=== PATIENT | female | born 1965 | race Caucasian/White ===

== ENCOUNTER → 2017-01-18 | Outpatient (CLI) | payer OTHER ==
[~2017-01-18] MED LIST: /CLON1TA PO; /ESOM40CA; /ESOM40CA OR; /ESOM40CA PO; /LOR25TA PO; BENA25TA4 PO; CARD120T3; CARD120T6; CARD120T6 OR; CRAN500C5 PO; DEXILANT OR; EMBEDA; ESTR1TAB PO; ESTR625TA; KADIAN; KADIAN OR; KADIAN PO; LASI40TA; LASI40TA OR; LISI20TA5; LYRI150C OR; LYRI200C; LYRI300C; LYRI300C OR; MULTIVIT; MULTIVIT PO; MULTTAB4 PO; NUCY100T11 PO; OPAN10TA17 OR; OPAN10TA17 PO; OPAN5TAB PO; OPANA IR OR; OPANA IR PO; PENN1.5S2 TOP; PREG25CA; SELE200C4 PO; SELE50TA; SKEL800T5 OR; THERGRAN; TRAM50TA2 OR; VICO5TAB; VICO5TAB PO; VIT D; VIT D 2000 PO; VIT E; VITA400C; VITA400C OR; VITA400C2 PO; VITAMIN D50000 UNT; VOLT1GEL2 TD; XANA0.5T; XANA0.5T OR; ZANT150T OR; [UNRECOGNIZED DRUG - CODE] PO; [UNRECOGNIZED DRUG - CODE] PO
--- NOTE | 2017-01-21 01:17 | ECWPNPC ---
PATIENT NAME: NICOLE SALTER : 1965 GENDER: FEMALE VISIT DATE: 01/18/2017 DISCHARGE DATE: 01/18/17 1144 VISIT LOCKED DATE TIME: PHYSICIAN: ALEJANDRO HUMPHREY RESOURCE: ALEJANDRO HUMPHREY REASON FOR APPOINTMENT 1. WC, BACK, R KNEE. HISTORY OF PRESENT ILLNESS HISTORY OF PRESENT ILLNESS: PAIN THE PATIENT DESCRIBES THE PAIN... FALL RISK SCREENING: SCREENING :NO FALLS IN THE PAST YEAR TODAY'S VISIT: NOTES: WC FOLLOWUP FOR RIGHT KNEE/LEG PAIN/LOW BACK PAIN. RATES PAIN TODAY 7/10. PAIN CENTERED IN RIGHT KNEE AND IS NOTING INCREASED PAIN IN RIGHT GASTROCNEMIUS MUSCLE FOR 2 WEEKS. DESCRIBES THE PAIN ACHING, THROBBING SHARP AND BURNING. IS UNABLE TO BEND RIGHT KNEE AND THIS MAKES WALKING VERY PAINFUL.. CURRENT MEDICATIONS TAKING LASIX 60 MG TABLET 1 TABLET ORALLY ONCE A DAY TAKING CARDIZEM 120 MG TABLET ORALLY ONCE DAILY, NOTES: THINKS IT MAY CAUSE HER SWELLING FOOT TAKING LYRICA 300 MG CAPSULE 1 CAPSULE ORALLY Q 8 HRS MDD=3 TAKING NORCO 10-325 MG TABLET 1 TABLET ORALLY EVERY4 HRS PRN PAIN MDD=3 TAKING OPANA 5 MG TABLET 1 TABLET ORALLY EVERY 4 HRS PRN PAIN MDD=6 TAKING OPANA ER 40 MG TABLET ER 12 HOUR ABUSE-DETERRENT 1 TABLET ON AN EMPTY STOMACH ORALLY EVERY 12 HRS MDD=2 TAKING XANAX 0.5 MG TABLET 1 TABLET ORALLY BID DISCONTINUED NORCO 10-325 MG TABLET 1 TABLET NEEDED ORALLY EVERY 6 HRS ALT WITH OXYMORPHONE MDD = 3 DISCONTINUED OPANA 5 MG TABLET 1 TABLET ORALLY EVERY 4 HOURS PRN PAIN MDD=46 DISCONTINUED OPANA 5 MG TABLET 1 TABLET ORALLY EVERY 4 HRS PRN PAIN MDD=6 DISCONTINUED OPANA ER 40 MG TABLET ER 12 HOUR ABUSE-DETERRENT 1 TABLET ON AN EMPTY STOMACH ORALLY EVERY 12 HRS MDD=2 DISCONTINUED NORCO 10-325 MG TABLET 1 TABLET ORALLY EVERY 6 HRS PRN PAIN MDD=3 DISCONTINUED OPANA ER 40 MG TABLET ER 12 HOUR ABUSE-DETERRENT 1 TABLET ON AN EMPTY STOMACH ORALLY EVERY 12 HRS MDD=2, NOTES: ALL SCRIPTS SENT TO [facility] 01/02/16 BUT [facility] DID NOT RECEIVE. RESENT 01/03/16 DISCONTINUED OXYMORPHONE HCL 5 MG TABLET 1 TABLET ON AN EMPTY STOMACH NEEDED ORALLY EVERY 4 HOURS PRN PAIN MDD =6 DISCONTINUED HYDROCODONE-ACETAMINOPHEN 10-325 MG TABLET 1 TABLET ORALLY EVERY 4 HOURS PRN PAIN MDD=3 DISCONTINUED ESTRADIOL 1 MG TABLET 1 TABLET ORALLY DAILY FOR THREE WEEKS, 1 WEEK OFF, NOTES: STOPPED DUE TO FAMILY HX OF BREAST CANCER MEDICATION LIST REVIEWED AND RECONCILED WITH THE PATIENT PAST MEDICAL HISTORY GERD HTN HIGH CHOLESTEROL ANXIETY BRONCHIATUS DEPRESSION RSD SINUSITIS PHARYNGITIS ALLERGIES AMITRIPTYLINE HCL: RASH AND SWELLING: ALLERGY BACITRACIN: RASH: ALLERGY INDOCIN: SWELLING AND RASH: ALLERGY VOLTAREN: RASH: ALLERGY LIDOCAINE: RASH: ALLERGY MORPHINE SULFATE: SWELLING AND ITCHING: ALLERGY NAPROXEN: SWELLING: ALLERGY NEOMYCIN SULFATE: RASH: ALLERGY POLYMYXIN B-TRIMETHOPRIM: RASH: ALLERGY OMEPRAZOLE: ITCHING: ALLERGY DICLOFENAC: SWELLING AND RASH: ALLERGY CLARITHROMYCIN: RASH: ALLERGY DEXILANT: FACIAL SWELLING: ALLERGY CELEBREX: RASH AND CHEST PAIN: ALLERGY LATEX (FOR ALLERGY USE ONLY): RASH AND BLISTERS: ALLERGY DULOXETINE HCL: CHEST PAIN: ALLERGY AMINOGLYCOSIDES: RASH: ALLERGY PENICILLIN (FOR ALLERGIES USE ONLY): ANAPHYLAXIS: ALLERGY SULFA (FOR ALLERGY USE ONLY): CHEST PAIN AND RASH: ALLERGY NSAIDS AND IBUPROFEN: SWELLING, DISTRESS, AND DIARRHEA: ALLERGY SOCIAL HISTORY GENERAL: TOBACCO USE ARE YOU A:NONSMOKER LEARNING BARRIERS / SPECIAL NEEDS ORIENTED TO PLAN OF CARE: PATIENT, PAIN MANAGEMENT PATIENT, ORIENTED TO PLAN OF CARE: PATIENT, PAIN MANAGEMENT PATIENT. NEW PATIENT PAIN DIARY TODAY'S VISITNOTES FROM 0-10, WHAT LEVEL IS YOUR PAIN TODAY?0 PAIN CLINIC PFS, CLERGY, PUBLIC HEALTH REFERRALS PFS REFERRAL NEEDED?NO CLERGY REFERRAL NEEDED?NO PUBLIC HEALTH REFERRAL NEEDED?NO WAS THE PROVIDER NOTIFIED OF ANY PERTINENT INFO?NO PFS REFERRAL NEEDED?NO CLERGY REFERRAL NEEDED?NO PUBLIC HEALTH REFERRAL NEEDED?NO WAS THE PROVIDER NOTIFIED OF ANY PERTINENT INFO?NO REVIEW OF SYSTEMS CONSTITUTIONAL: ANY CHANGE IN YOUR MEDICAL CONDITION? NO . CHILLS NO . FEVER NO . INFECTION: DO YOU HAVE NEW INFECTIONS? NO - HAD FLU 3 WEEKS AGO WITH COUGH, AND SORE THROAT. . DO YOU HAVE HISTORY OF MRSA? NO . MUSCULOSKELETAL: ANY NEW PATTERNS OF PAIN OR NUMBNESS? YES, PAIN UPPER BACK . GASTROENTEROLOGY: ANY NEW CHANGE IN BOWEL CONTROL? NO . 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 . GENITOURINARY: ANY NEW CHANGE IN BLADDER CONTROL? NO . IS THERE A CHANCE YOU COULD BE ? NO . HEMATOLOGY/LYMPH: DO YOU TAKE ANY BLOOD THINNERS? (FOR EXAMPLE- COUMADIN, PLAVIX, AGGRENOX, PLATEL, PRADAXA, OR XARELTO) NO . WHEN WAS YOUR LAST DOSE? DATE: TIME: . NEUROLOGY: HAVE YOU FALLEN IN THE PAST 6 MONTHS? NO . ANY NEW EXTREMITY NUMBNESS OR WEAKNESS? NO . CARDIOLOGY: DO YOU HAVE A PACEMAKER OR DEFIBRILLATOR? NO . RESPIRATORY: HAVE YOU BEEN SICK IN THE PAST WEEK? NO . FEVER NO . FLU LIKE SYMPTOMS? NO . COUGH NO . INTEGUMENTARY: DO YOU HAVE ANY RASHES OR OPEN SORES? NO - DOES HAVE PERSISTANT WHILE SPOTS ON LEGS - NO OPEN AREAS . ALLERGIC/IMMUNO: ARE YOU ALLERGIC TO SHELLFISH OR IV DYE? NO . ANY NEW ALLERGIES? NO . PSYCHIATRIC: DO YOU HAVE THOUGHTS OF HURTING YOURSELF OR SOMEONE ELSE? NO . ARE YOU ABUSED, NEGLECTED, OR IN AN UNSAFE ENVIRONMENT? NO . ENDOCRINOLOGY: ARE YOU DIABETIC? NO . OTHER: DO YOU NEED ANY PRESCRIPTIONS? NO . IF YES, PLEASE LIST: ____ . ANY NEW PROBLEMS WITH YOUR MEDICATIONS? NO . WHEN DID YOU LAST EAT? ____ . WHEN DID YOU LAST DRINK? ____ . WHAT DID YOU LAST DRINK? ____ . NAME OF PERSON DRIVING YOU HOME? ____ . DO YOU HAVE ANY OTHER QUESTIONS OR CONCERNS NO . REVIEWED BY: PROVIDER: ALEJANDRO FORRESTER . VITAL SIGNS WT 212 LBS, HT 66 IN, BMI 34.21 INDEX, BP 161/88 MM HG, HR 99 /MIN, RR 18 /MIN, TEMP 97.0 F, OXYGEN SAT % 97%, NA INITIALS SC 11:02, REVIEWED BY: NIC. EXAMINATION GENERAL EXAMINATION: PSYCHALERT , ORIENTED X 3 , APPROPRIATE MOOD AND AFFECT , TALKATIVE. LUNGS:CLEAR TO AUSCULTATION BILATERALLY, NO WHEEZES, RALES OR RHONCHI. HEART:HEART RATE REGULAR, NO S3, S4, MURMUR OR RUB. MUSCULOSKELETAL:3+ EDEMA RIGHT KNEE LOWER EXTREMITY AND ANKLE/FOOT. KNEE TO FOOT. TIGHTNESS AND MUSCLE SPASM OVER RIGHT QUADRACEPS UNABLE TO FLEX RIGHT KNEE GREATER THAN 3-DEGREES. . EXQUISITE TENDERNESS OVER MEDIAL ASPECT RIGHT KNEE. NO TENDERNESS OR EDEMA LEFT KNEE OR LEG. CANE USED FOR BALANCE. NEUROLOGIC EXAM:HYPERSENSATIVITY TO LIGHT TOUCH OVER RIGHT LEFT FROM MID POSTERIOR THIGH TO RIGHT TOES. . ASSESSMENTS RIGHT KNEE PAIN - M25.561 (PRIMARY) RIGHT ANKLE PAIN - M25.571 CHRONIC PRESCRIPTION OPIATE USE - Z79.891 NEUROPATHY - G62.9 TREATMENT RIGHT KNEE PAIN NOTES: UTOX TODAYCALL OFFICE FOR THE [facility] TO GET HEPL GETTING INSURANCE ISSUE ADDRESSED. GET BACK TO KNEE SURGEON. STAES THAT KNEE SURGERY WAS APPROVED BUT CAN NOT GET MEDICAL CLEEARANCE DO TO GI ISSUES. PROCEDURES PN WORKMANS' COMP OPINION IN YOUR OPINION, WAS THE INCIDENT THAT THE PATIENT DESCRIBED THE COMPETENT MEDICAL CAUSE OF THIS INJURY/ILLNESS? YES ARE THE PATIENT'S COMPLAINTS CONSISTENT WITH HIS/HER HISTORY OF THE INJURY/ILLNESS? YES IS THE PATIENT'S HISTORY OF THE INJURY/ILLNESS CONSISTENT WITH YOUR OBJECTIVE FINDING? YES WHAT IS THE PERCENTAGE OF TEMPORARY IMPAIRMENT? TOTAL = 100% IS THE PATIENT WORKING? NO DOCTOR ON SITE: JOE VALENTINE MD PROCEDURE CODES FA211 ESTABILISHED PATIENT [facility] FACILITY CHARGE DISPOSITION & COMMUNICATION FOLLOW UP 6 WEEKS (REASON: WC RIGHT KNEE/LEG) ELECTRONICALLY SIGNED BY KENDRA MACHADO ON 01/19/2017 AT 12:03 PM EDT DISCLAIMER : THIS IS A VISIT SUMMARY EXTRACTED FROM THE [employer] CHART. IT IS NOT A COPY OF THE [employer] PROGRESS NOTE. RADHA
== END ==
LOC: M PAIN 11:00
PROVIDERS: ATTEND Nurse Practitioner Family
DX: Z09 Encounter for follow-up examination after completed treatment for conditions other than malignant neoplasm (principal); G89.29 Other chronic pain; M25.561 Pain in right knee; M25.571 Pain in right ankle and joints of right foot; G62.9 Polyneuropathy, unspecified; K21.9 Gastro-esophageal reflux disease without esophagitis; I10 Essential (primary) hypertension; E78.00 Pure hypercholesterolemia, unspecified; F41.9 Anxiety disorder, unspecified; F32.9 Major depressive disorder, single episode, unspecified; G90.50 Complex regional pain syndrome I, unspecified; Z88.5 Allergy status to narcotic agent; Z88.1 Allergy status to other antibiotic agents; Z91.040 Latex allergy status; Z88.0 Allergy status to penicillin; Z88.2 Allergy status to sulfonamides; Z88.6 Allergy status to analgesic agent; Z88.8 Allergy status to other drugs, medicaments and biological substances; Z79.891 Long term (current) use of opiate analgesic; Z79.899 Other long term (current) drug therapy

== ENCOUNTER → 2017-03-12 | Outpatient (CLI) | payer OTHER ==
--- NOTE | 2017-03-13 00:28 | ECWPNPC ---
PATIENT NAME: NICOLE SALTER : 1965 GENDER: FEMALE VISIT DATE: 03/12/2017 DISCHARGE DATE: 03/12/17 0000 VISIT LOCKED DATE TIME: PHYSICIAN: ALEJANDRO HUMPHREY RESOURCE: ALEJANDRO HUMPHREY REASON FOR APPOINTMENT 1. WC, KNEE HISTORY OF PRESENT ILLNESS HISTORY OF PRESENT ILLNESS: PAIN THE PATIENT DESCRIBES THE PAIN... FALL RISK SCREENING: SCREENING :NO FALLS IN THE PAST YEAR TODAY'S VISIT: NOTES: WC FOLLOWUP RIGHT KNEE, LOW BACK RATES PAIN LEVEL TODAY 6/10. DESCRIBES PAIN ACHING BURNING AND SORE. PAIN IS MOST PROMINENT IN RIGHT KNEE AND LEG AND EXTENDS ACROSS THE BACK. NO RECENT FALLS. WAS SEEN BY HER ORTHOPEDIC SURGEON'S OFFFICE - A STEROID INJECTION WAS DONE WHICH WAS EXTREMELY PAINFUL AND PRODUCED MORE BURNING INTO THE LEG. IS BEING REFERRED TO [facility] FOR SURGERY FOR KNEE REPLACEMENT. REPORTS IS HAVING MORE SWELLING AND BURNING INTO RIGHT LOWER LEG AND FOOT.. CURRENT MEDICATIONS TAKING LASIX 60 MG TABLET 1 TABLET ORALLY ONCE A DAY TAKING CARDIZEM 120 MG TABLET ORALLY ONCE DAILY, NOTES: THINKS IT MAY CAUSE HER SWELLING FOOT TAKING XANAX 0.5 MG TABLET 1 TABLET ORALLY BID TAKING LYRICA 300 MG CAPSULE 1 CAPSULE ORALLY Q 8 HRS MDD=3 TAKING OPANA 5 MG TABLET 1 TABLET ORALLY EVERY 4 HRS PRN PAIN MDD=6 TAKING OPANA ER 40 MG TABLET ER 12 HOUR ABUSE-DETERRENT 1 TABLET ON AN EMPTY STOMACH ORALLY EVERY 12 HRS MDD=2 TAKING NORCO 10-325 MG TABLET 1 TABLET ORALLY EVERY4 HRS PRN PAIN MDD=3 MEDICATION LIST REVIEWED AND RECONCILED WITH THE PATIENT PAST MEDICAL HISTORY GERD HTN HIGH CHOLESTEROL ANXIETY BRONCHIATUS DEPRESSION RSD SINUSITIS PHARYNGITIS ALLERGIES AMITRIPTYLINE HCL: RASH AND SWELLING: ALLERGY BACITRACIN: RASH: ALLERGY INDOCIN: SWELLING AND RASH: ALLERGY VOLTAREN: RASH: ALLERGY LIDOCAINE: RASH: ALLERGY MORPHINE SULFATE: SWELLING AND ITCHING: ALLERGY NAPROXEN: SWELLING: ALLERGY NEOMYCIN SULFATE: RASH: ALLERGY POLYMYXIN B-TRIMETHOPRIM: RASH: ALLERGY OMEPRAZOLE: ITCHING: ALLERGY DICLOFENAC: SWELLING AND RASH: ALLERGY CLARITHROMYCIN: RASH: ALLERGY DEXILANT: FACIAL SWELLING: ALLERGY CELEBREX: RASH AND CHEST PAIN: ALLERGY LATEX (FOR ALLERGY USE ONLY): RASH AND BLISTERS: ALLERGY DULOXETINE HCL: CHEST PAIN: ALLERGY AMINOGLYCOSIDES: RASH: ALLERGY PENICILLIN (FOR ALLERGIES USE ONLY): ANAPHYLAXIS: ALLERGY SULFA (FOR ALLERGY USE ONLY): CHEST PAIN AND RASH: ALLERGY NSAIDS AND IBUPROFEN: SWELLING, DISTRESS, AND DIARRHEA: ALLERGY REVIEW OF SYSTEMS CONSTITUTIONAL: ANY CHANGE IN YOUR MEDICAL CONDITION? YES, FLU, HEADACHE, DIARRHEA, VOMIT . CHILLS NO . FEVER NO . INFECTION: DO YOU HAVE NEW INFECTIONS? YES. PT SUSPECTS UTI, BLADDER PRESSURE, DYSURIA, URINE IS DARKER THAN USUAL. . DO YOU HAVE HISTORY OF MRSA? NO . MUSCULOSKELETAL: ANY NEW PATTERNS OF PAIN OR NUMBNESS? YES. RIGHT LEG PAIN WORSENING, STIFFNESS. . GASTROENTEROLOGY: ANY NEW CHANGE IN BOWEL CONTROL? NO . GENITOURINARY: ANY NEW CHANGE IN BLADDER CONTROL? NO . IS THERE A CHANCE YOU COULD BE ? NO . HEMATOLOGY/LYMPH: DO YOU TAKE ANY BLOOD THINNERS? (FOR EXAMPLE- COUMADIN, PLAVIX, AGGRENOX, PLATEL, PRADAXA, OR XARELTO) NO . WHEN WAS YOUR LAST DOSE? DATE: TIME: . NEUROLOGY: HAVE YOU FALLEN IN THE PAST 6 MONTHS? NO . ANY NEW EXTREMITY NUMBNESS OR WEAKNESS? NO . CARDIOLOGY: DO YOU HAVE A PACEMAKER OR DEFIBRILLATOR? NO . RESPIRATORY: HAVE YOU BEEN SICK IN THE PAST WEEK? NO . FEVER NO . FLU LIKE SYMPTOMS? NO . COUGH NO . INTEGUMENTARY: DO YOU HAVE ANY RASHES OR OPEN SORES? NO . ALLERGIC/IMMUNO: ARE YOU ALLERGIC TO SHELLFISH OR IV DYE? NO . ANY NEW ALLERGIES? NO . PSYCHIATRIC: DO YOU HAVE THOUGHTS OF HURTING YOURSELF OR SOMEONE ELSE? NO . ARE YOU ABUSED, NEGLECTED, OR IN AN UNSAFE ENVIRONMENT? NO . ENDOCRINOLOGY: ARE YOU DIABETIC? NO . OTHER: DO YOU NEED ANY PRESCRIPTIONS? YES . IF YES, PLEASE LIST: ____HYDROCODONE 10/325, OPANA 40, OPANA IR 5 . ANY NEW PROBLEMS WITH YOUR MEDICATIONS? NO . WHEN DID YOU LAST EAT? ____ . WHEN DID YOU LAST DRINK? ____ . WHAT DID YOU LAST DRINK? ____ . NAME OF PERSON DRIVING YOU HOME? ____ . DO YOU HAVE ANY OTHER QUESTIONS OR CONCERNS NO . REVIEWED BY: PROVIDER: ALEJANDRO FRORESTER . VITAL SIGNS WT 212 LBS, HT 66 IN, BMI 34.21 INDEX, BP 144/80 MM HG, HR 77 /MIN, RR 18 /MIN, TEMP 97.8 F, OXYGEN SAT % 97, SAFE IN ENV? (Y/N) Y, NA INITIALS AW 1551, REVIEWED BY: MARCOS. EXAMINATION GENERAL EXAMINATION: PSYCHALERT , ORIENTED X 3 , APPROPRIATE MOOD AND AFFECT , TALKATIVE. LUNGS:CLEAR TO AUSCULTATION BILATERALLY, NO WHEEZES, RALES OR RHONCHI. HEART:HEART RATE REGULAR, NO S3, S4, MURMUR OR RUB. MUSCULOSKELETAL:2+ EDEMA RIGHT KNEE LOWER EXTREMITY AND ANKLE/FOOT. KNEE TO FOOT. TIGHTNESS AND MUSCLE SPASM OVER RIGHT QUADRACEPS UNABLE TO FLEX RIGHT KNEE GREATER THAN 20 DEGREES TODAY. . . EXQUISITE TENDERNESS OVER MEDIAL ASPECT RIGHT KNEE. NO TENDERNESS OR EDEMA LEFT KNEE OR LEG. . PERIPHERAL PULSES:1+, DP/PT BILATERALLY. NEUROLOGIC EXAM:HYPERSENSATIVITY TO LIGHT TOUCH OVER RIGHT LEFT FROM MID POSTERIOR THIGH TO RIGHT TOES. . ASSESSMENTS RIGHT KNEE PAIN - M25.561 (PRIMARY) RIGHT ANKLE PAIN - M25.571 CHRONIC PRESCRIPTION OPIATE USE - Z79.891 NEUROPATHY - G62.9 TREATMENT RIGHT KNEE PAIN REFILL OPANA TABLET, 5 MG, 1 TABLET, ORALLY, EVERY 4 HRS PRN PAIN MDD=6, 30 DAY(S), 180, REFILLS 0 REFILL OPANA ER TABLET ER 12 HOUR ABUSE-DETERRENT, 40 MG, 1 TABLET ON AN EMPTY STOMACH, ORALLY, EVERY 12 HRS MDD=2, 30 DAY(S), 60, REFILLS 0 REFILL NORCO TABLET, 10-325 MG, 1 TABLET, ORALLY, EVERY4 HRS PRN PAIN MDD=3, 30 DAY(S), 90, REFILLS 0 NOTES: UTOX TODAY .PT IS ON CHRONIC MEDS S LISTED ABOVE - SHE REQUIRES THESE MEDICATIONS TO BE ABLE TO FUNCTION. MEDICATIONS MANAGE THE PAIN AND SHE IS HAVING NO ADVERSE REACTIONS TO THESE MEDS. CLINICAL NOTES: ISTOP REGISTRY REVIEWED AND DEMNOSTRATES COMPLLIANCE. BRINGS IN MEDICATIONS WHICH IS APPROPRIATE FOR WHAT WAS DISPENSED. RECENT URINE TOXICOLOGY REVIEWED. NO UNAUTHORIZED MEDICATIONS. NO ILLICIT SUBSTANCES AND PRESCRIBED MEDICATIONS WERE PRESENT. PROCEDURES PN WORKMANS' COMP OPINION IN YOUR OPINION, WAS THE INCIDENT THAT THE PATIENT DESCRIBED THE COMPETENT MEDICAL CAUSE OF THIS INJURY/ILLNESS? YES ARE THE PATIENT'S COMPLAINTS CONSISTENT WITH HIS/HER HISTORY OF THE INJURY/ILLNESS? YES IS THE PATIENT'S HISTORY OF THE INJURY/ILLNESS CONSISTENT WITH YOUR OBJECTIVE FINDING? YES WHAT IS THE PERCENTAGE OF TEMPORARY IMPAIRMENT? TOTAL = 100% IS THE PATIENT WORKING? NO DOCTOR ON SITE: JOE VALENTINE MD DISPOSITION & COMMUNICATION FOLLOW UP [address] VILLELA (REASON: WC KNEE/LEG/BACK ) ELECTRONICALLY SIGNED BY KENDRA MACHADO ON 03/12/2017 AT 04:55 PM EDT DISCLAIMER : THIS IS A VISIT SUMMARY EXTRACTED FROM THE [employer] CHART. IT IS NOT A COPY OF THE [employer] PROGRESS NOTE. RADHA
== END ==
LOC: M PAIN 14:20
PROVIDERS: ATTEND Nurse Practitioner Family
DX: M25.561 Pain in right knee (principal); M25.571 Pain in right ankle and joints of right foot; Z79.891 Long term (current) use of opiate analgesic; G62.9 Polyneuropathy, unspecified; Z79.899 Other long term (current) drug therapy; Z88.8 Allergy status to other drugs, medicaments and biological substances; Z88.0 Allergy status to penicillin; Z88.1 Allergy status to other antibiotic agents; Z88.5 Allergy status to narcotic agent; Z88.2 Allergy status to sulfonamides; Z91.040 Latex allergy status

== ENCOUNTER → 2017-04-13 | Outpatient (CLI) | payer OTHER ==
--- NOTE | 2017-04-23 01:29 | ECWPNPC ---
PATIENT NAME: NICOLE SALTER : 1965 GENDER: FEMALE VISIT DATE: 04/13/2017 DISCHARGE DATE: 04/13/17 1509 VISIT LOCKED DATE TIME: PHYSICIAN: JOE VILLELA RESOURCE: JOE VILLELA REASON FOR APPOINTMENT 1. WC KNEE/LEG/BACK HISTORY OF PRESENT ILLNESS GENERAL: 51 YEAR OLD FEMALE PATIENT WITH HISTORY OF CHRONIC BACK, RIGHT ARM, RIGHT KNEE, AND RIGHT LEG PAIN. PATIENT DESCRIBES THE PAIN THE ACHING, BURNING, STABBING, TENDER, SORE, SHOOTING, AND HAVING IT ALL THE TIME WITH A PAIN SCORE OF 7/10 ON TODAY'S VISIT. PATIENT WAS INJURED IN A WORK RELATED INJURY ON 05-12-2007 WORKING A [employer]. PATIENT WAS SITTING ON CHAIR TRIED TO MOVED FORWARD WHEN THE CHAIR GAVE OUT FROM UNDER HER INJURING HER BACK, RIGHT ARM, RIGHT KNEE, AND RIGHT LEG. PATIENT STATES THAT SHE HAS HAD 3 KNEE SURGERIES. PATIENT STATES THAT SHE HAS TRIED PHYSICAL THERAPY IN THE PAST BUT COMP STOPPED PAYING FOR IT. 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 PATIENT STATES THAT SHE HAS APPROVAL FOR A 4 TH KNEE SURGERY BUT SHE HAS DIFFICULTIES GETTING A MEDICAL CLEARANCE FOR THE SURGERY. PATIENT DENIES UNEXPLAINABLE WEIGHT LOSS, FEVER, CHILLS, NEW CHANGES ON HER URINARY OR BOWEL CONTROL. HISTORY OF PRESENT ILLNESS: PAIN THE PATIENT DESCRIBES THE PAIN... FALL RISK SCREENING: SCREENING :NO FALLS IN THE PAST YEAR CURRENT MEDICATIONS TAKING LASIX 60 MG TABLET 1 TABLET ORALLY ONCE A DAY TAKING CARDIZEM 120 MG TABLET ORALLY ONCE DAILY TAKING XANAX 0.5 MG TABLET 1 TABLET ORALLY TWICE A DAY NEEDED TAKING LYRICA 300 MG CAPSULE 1 CAPSULE ORALLY Q 8 HRS MDD=3 TAKING OPANA 5 MG TABLET 1 TABLET ORALLY EVERY 4 HRS PRN PAIN MDD=6 TAKING OPANA ER 40 MG TABLET ER 12 HOUR ABUSE-DETERRENT 1 TABLET ON AN EMPTY STOMACH ORALLY EVERY 12 HRS MDD=2 TAKING NORCO 10-325 MG TABLET 1 TABLET ORALLY EVERY 4 HRS PRN PAIN MDD=3 MEDICATION LIST REVIEWED AND RECONCILED WITH THE PATIENT PAST MEDICAL HISTORY GERD HTN HIGH CHOLESTEROL ANXIETY BRONCHIATUS DEPRESSION RSD SINUSITIS PHARYNGITIS ALLERGIES AMITRIPTYLINE HCL: RASH AND SWELLING: ALLERGY BACITRACIN: RASH: ALLERGY INDOCIN: SWELLING AND RASH: ALLERGY VOLTAREN: RASH: ALLERGY LIDOCAINE: RASH: ALLERGY MORPHINE SULFATE: SWELLING AND ITCHING: ALLERGY NAPROXEN: SWELLING: ALLERGY NEOMYCIN SULFATE: RASH: ALLERGY POLYMYXIN B-TRIMETHOPRIM: RASH: ALLERGY OMEPRAZOLE: ITCHING: ALLERGY DICLOFENAC: SWELLING AND RASH: ALLERGY CLARITHROMYCIN: RASH: ALLERGY DEXILANT: FACIAL SWELLING: ALLERGY CELEBREX: RASH AND CHEST PAIN: ALLERGY LATEX (FOR ALLERGY USE ONLY): RASH AND BLISTERS: ALLERGY DULOXETINE HCL: CHEST PAIN: ALLERGY AMINOGLYCOSIDES: RASH: ALLERGY PENICILLIN (FOR ALLERGIES USE ONLY): ANAPHYLAXIS: ALLERGY SULFA (FOR ALLERGY USE ONLY): CHEST PAIN AND RASH: ALLERGY NSAIDS AND IBUPROFEN: SWELLING, DISTRESS, AND DIARRHEA: ALLERGY SURGICAL HISTORY MULTIPLE KNEE RIGHT,HYSTERECTOMY,CHOLECYSTECTOMY,TONSILLECTOMY,MULT LAPAROSCOPIES,LEFT SHOULDER SKIN CA FAMILY HISTORY NO FAMILY HISTORY DOCUMENTED. SOCIAL HISTORY GENERAL: TOBACCO USE ARE YOU A:NONSMOKER LEARNING BARRIERS / SPECIAL NEEDS ORIENTED TO PLAN OF CARE: PATIENT, PAIN MANAGEMENT PATIENT, ORIENTED TO PLAN OF CARE: PATIENT, PAIN MANAGEMENT PATIENT. NEW PATIENT PAIN DIARY TODAY'S VISITNOTES FROM 0-10, WHAT LEVEL IS YOUR PAIN TODAY?0 PAIN CLINIC PFS, CLERGY, PUBLIC HEALTH REFERRALS PFS REFERRAL NEEDED?NO CLERGY REFERRAL NEEDED?NO PUBLIC HEALTH REFERRAL NEEDED?NO WAS THE PROVIDER NOTIFIED OF ANY PERTINENT INFO?NO PFS REFERRAL NEEDED?NO CLERGY REFERRAL NEEDED?NO PUBLIC HEALTH REFERRAL NEEDED?NO WAS THE PROVIDER NOTIFIED OF ANY PERTINENT INFO?NO HOSPITALIZATION/MAJOR DIAGNOSTIC PROCEDURE SURGERIES REVIEW OF SYSTEMS CONSTITUTIONAL: ANY CHANGE IN YOUR MEDICAL CONDITION? NO . CHILLS NO . FEVER NO . INFECTION: DO YOU HAVE NEW INFECTIONS? NO . DO YOU HAVE HISTORY OF MRSA? NO . MUSCULOSKELETAL: ANY NEW PATTERNS OF PAIN OR NUMBNESS? NO . GASTROENTEROLOGY: ANY NEW CHANGE IN BOWEL CONTROL? NO . GENITOURINARY: ANY NEW CHANGE IN BLADDER CONTROL? NO . IS THERE A CHANCE YOU COULD BE ? NO . HEMATOLOGY/LYMPH: DO YOU TAKE ANY BLOOD THINNERS? (FOR EXAMPLE- COUMADIN, PLAVIX, AGGRENOX, PLATEL, PRADAXA, OR XARELTO) NO . WHEN WAS YOUR LAST DOSE? DATE: TIME: . NEUROLOGY: HAVE YOU FALLEN IN THE PAST 6 MONTHS? NO . ANY NEW EXTREMITY NUMBNESS OR WEAKNESS? NO . CARDIOLOGY: DO YOU HAVE A PACEMAKER OR DEFIBRILLATOR? NO . RESPIRATORY: HAVE YOU BEEN SICK IN THE PAST WEEK? NO . FEVER NO . FLU LIKE SYMPTOMS? NO . COUGH NO . INTEGUMENTARY: DO YOU HAVE ANY RASHES OR OPEN SORES? NO . ALLERGIC/IMMUNO: ARE YOU ALLERGIC TO SHELLFISH OR IV DYE? NO . ANY NEW ALLERGIES? NO . PSYCHIATRIC: DO YOU HAVE THOUGHTS OF HURTING YOURSELF OR SOMEONE ELSE? NO . ARE YOU ABUSED, NEGLECTED, OR IN AN UNSAFE ENVIRONMENT? NO . ENDOCRINOLOGY: ARE YOU DIABETIC? NO . OTHER: DO YOU NEED ANY PRESCRIPTIONS? NO . IF YES, PLEASE LIST: ____ . ANY NEW PROBLEMS WITH YOUR MEDICATIONS? NO . WHEN DID YOU LAST EAT? ____ . WHEN DID YOU LAST DRINK? ____ . WHAT DID YOU LAST DRINK? ____ . NAME OF PERSON DRIVING YOU HOME? ____ . DO YOU HAVE ANY OTHER QUESTIONS OR CONCERNS NO . REVIEWED BY: PROVIDER: JOE VILLELA MD . VITAL SIGNS WT 204.0 LBS, HT 66 IN, BMI 32.92 INDEX, BP 138/77 MM HG, HR 99 /MIN, RR 16 /MIN, TEMP 97.0 F, OXYGEN SAT % 96%, NA INITIALS TL 1314, REVIEWED BY: LS. EXAMINATION GENERAL: PATIENT IS ALERT O X 3 AND COOPERATIVE. PATIENT AMBULATES WITH A LIMP ON THE RIGHT LEG. PATIENT'S RIGHT LEG IS WEAKER AT FLEXION AND EXTENSION COMPARED TO THE LEFT LEG. ASSESSMENTS RIGHT KNEE PAIN - M25.561 (PRIMARY) POLYNEUROPATHY, UNSPECIFIED - G62.9 TREATMENT RIGHT KNEE PAIN REFILL OPANA ER TABLET ER 12 HOUR ABUSE-DETERRENT, 40 MG, 1 TABLET ON AN EMPTY STOMACH, ORALLY, EVERY 12 HRS MDD=2, 30 DAY(S), 60, REFILLS 0 REFILL NORCO TABLET, 10-325 MG, 1 TABLET, ORALLY, EVERY 4 HRS PRN PAIN MDD=3, 30 DAY(S), 90, REFILLS 0 REFILL OPANA TABLET, 5 MG, 1 TABLET, ORALLY, EVERY 4 HRS PRN PAIN MDD=6, 30 DAY(S), 180, REFILLS 0 NOTES: WE DISCUSSED SEVERAL ISSUES WITH MS. SALTER'S PAIN MANAGEMENT CASE. AT THIS TIME THE PATIENT WILL RECEIVE A REFILL OF NORCO FOR SOMATIC PAIN TODAY. PATIENT BROUGHT HER MEDICATIONS TODAY DIRECTED. WE HAVE TODAY A DISCUSSION ON HER MEDICATIONS. AT THIS TIME I WOULD LIKE THE PATIENT TO FOLLOW UP WITH ME IN 3 WEEKS TO CONTINUE DISCUSSING HER CASE WITH HER. INSTRUCTIONS WERE GIVEN, QUESTIONS WERE ANSWERED, PATIENT REPORTS UNDERSTANDING AND AGREES WITH THE PLAN. I, JOHNNY EVANS, DOCUMENTED THE ABOVE INFORMATION ACTING A SCRIBE FOR DR. VILLELA. I HAVE REVIEWED THE ABOVE DOCUMENT, WRITTEN BY JOHNNY EVANS SCRIBE AND I VERIFY THAT IT IS ACCURATE. PROCEDURES PN WORKMANS' COMP OPINION IN YOUR OPINION, WAS THE INCIDENT THAT THE PATIENT DESCRIBED THE COMPETENT MEDICAL CAUSE OF THIS INJURY/ILLNESS? YES ARE THE PATIENT'S COMPLAINTS CONSISTENT WITH HIS/HER HISTORY OF THE INJURY/ILLNESS? YES IS THE PATIENT'S HISTORY OF THE INJURY/ILLNESS CONSISTENT WITH YOUR OBJECTIVE FINDING? YES WHAT IS THE PERCENTAGE OF TEMPORARY IMPAIRMENT? TOTAL = 100% IS THE PATIENT WORKING? NO DOCTOR ON SITE: JOE VALENTINE MD PROCEDURE CODES FA211 ESTABILISHED PATIENT [facility] FACILITY CHARGE G8730 PAIN ASSESS POS TOOL F/U PLAN DOC G8427 DOC MEDS VERIFIED W/PT OR RE DISPOSITION & COMMUNICATION FOLLOW UP 3 WEEKS ELECTRONICALLY SIGNED BY JOE VILLELA MD ON 04/22/2017 AT 06:02 AM EDT DISCLAIMER : THIS IS A VISIT SUMMARY EXTRACTED FROM THE [employer] CHART. IT IS NOT A COPY OF THE [employer] PROGRESS NOTE. RADHA
== END ==
LOC: M PAIN 12:30
PROVIDERS: ATTEND Anesthesiology
DX: M25.561 Pain in right knee (principal); G62.9 Polyneuropathy, unspecified; G89.29 Other chronic pain; M54.5 Low back pain; M79.601 Pain in right arm; Z79.891 Long term (current) use of opiate analgesic; Z79.899 Other long term (current) drug therapy; Z88.0 Allergy status to penicillin; Z88.8 Allergy status to other drugs, medicaments and biological substances; Z88.5 Allergy status to narcotic agent; Z88.1 Allergy status to other antibiotic agents; Z88.6 Allergy status to analgesic agent; Z88.2 Allergy status to sulfonamides; Z91.040 Latex allergy status

== ENCOUNTER → 2017-05-06 | Outpatient (CLI) | payer OTHER ==
--- NOTE | 2017-05-11 23:31 | ECWPNPC ---
PATIENT NAME: NICOLE SALTER : 1965 GENDER: FEMALE VISIT DATE: 05/06/2017 DISCHARGE DATE: 05/06/17 1616 VISIT LOCKED DATE TIME: PHYSICIAN: JOE VILLELA RESOURCE: JOE VILLELA REASON FOR APPOINTMENT 1. W/C RIGHT LEG, KNEE, ARM AND BACK PAIN HISTORY OF PRESENT ILLNESS HISTORY OF PRESENT ILLNESS: PAIN THE PATIENT DESCRIBES THE PAIN... 51 YEAR OLD FEMALE PATIENT WITH HISTORY OF CHRONIC BACK, RIGHT ARM, RIGHT KNEE, AND RIGHT LEG PAIN. PATIENT DESCRIBES THE PAIN THE ACHING, BURNING, STABBING, TENDER, SORE, SHOOTING, AND HAVING IT ALL THE TIME WITH A PAIN SCORE OF 7/10 ON TODAY'S VISIT. 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 PATIENT WAS SITTING ON CHAIR TRIED TO MOVED FORWARD WHEN THE CHAIR GAVE OUT FROM UNDER HER INJURING HER BACK, RIGHT ARM, RIGHT KNEE, AND RIGHT LEG. PATIENT STATES THAT SHE HAS HAD 3 KNEE SURGERIES. PATIENT REPORTS DOING PHYSICAL THERAPY EXERCISES AT HOME TO TRY TO STAY LIMBER. PATIENT IS CURRENTLY WAITING ON A MEDICAL CLEARANCE FOR HER FOURTH KNEE SURGERY. PATIENT DENIES UNEXPLAINABLE WEIGHT LOSS, FEVER, CHILLS, NEW CHANGES ON HER URINARY OR BOWEL CONTROL. FALL RISK SCREENING: SCREENING :NO FALLS IN THE PAST YEAR CURRENT MEDICATIONS TAKING OPANA ER 40 MG TABLET ER 12 HOUR ABUSE-DETERRENT 1 TABLET ON AN EMPTY STOMACH ORALLY EVERY 12 HRS MDD=2 TAKING NORCO 10-325 MG TABLET 1 TABLET ORALLY EVERY 4 HRS PRN PAIN MDD=3 TAKING OPANA 5 MG TABLET 1 TABLET ORALLY EVERY 4 HRS PRN PAIN MDD=6 TAKING LASIX 60 MG TABLET 1 TABLET ORALLY ONCE A DAY TAKING CARDIZEM 120 MG TABLET ORALLY ONCE DAILY TAKING XANAX 0.5 MG TABLET 1 TABLET ORALLY TWICE A DAY NEEDED TAKING LYRICA 300 MG CAPSULE 1 CAPSULE ORALLY Q 8 HRS MDD=3 TAKING BIOTIN 300 MCG TABLET 1 TABLET ORALLY ONCE A DAY TAKING VITAMIN E 400 UNIT TABLET 2 TABLETS ORALLY ONCE A DAY MEDICATION LIST REVIEWED AND RECONCILED WITH THE PATIENT PAST MEDICAL HISTORY GERD HTN HIGH CHOLESTEROL ANXIETY BRONCHIATUS DEPRESSION RSD SINUSITIS PHARYNGITIS ALLERGIES AMITRIPTYLINE HCL: RASH AND SWELLING: ALLERGY BACITRACIN: RASH: ALLERGY INDOCIN: SWELLING AND RASH: ALLERGY VOLTAREN: RASH: ALLERGY LIDOCAINE: RASH: ALLERGY MORPHINE SULFATE: SWELLING AND ITCHING: ALLERGY NAPROXEN: SWELLING: ALLERGY NEOMYCIN SULFATE: RASH: ALLERGY POLYMYXIN B-TRIMETHOPRIM: RASH: ALLERGY OMEPRAZOLE: ITCHING: ALLERGY DICLOFENAC: SWELLING AND RASH: ALLERGY CLARITHROMYCIN: RASH: ALLERGY DEXILANT: FACIAL SWELLING: ALLERGY CELEBREX: RASH AND CHEST PAIN: ALLERGY LATEX (FOR ALLERGY USE ONLY): RASH AND BLISTERS: ALLERGY DULOXETINE HCL: CHEST PAIN: ALLERGY AMINOGLYCOSIDES: RASH: ALLERGY PENICILLIN (FOR ALLERGIES USE ONLY): ANAPHYLAXIS: ALLERGY SULFA (FOR ALLERGY USE ONLY): CHEST PAIN AND RASH: ALLERGY NSAIDS AND IBUPROFEN: SWELLING, DISTRESS, AND DIARRHEA: ALLERGY REVIEW OF SYSTEMS REVIEWED BY: PROVIDER: . CONSTITUTIONAL: ANY CHANGE IN YOUR MEDICAL CONDITION? YES, URINE CLOUDY, URGENCY, AND A TEMP OFF AND ON. APPOINTMENT TOMORROW WITH PCP. . CHILLS NO . FEVER YES . INFECTION: DO YOU HAVE NEW INFECTIONS? NO . DO YOU HAVE HISTORY OF MRSA? NO . MUSCULOSKELETAL: ANY NEW PATTERNS OF PAIN OR NUMBNESS? NO . GASTROENTEROLOGY: ANY NEW CHANGE IN BOWEL CONTROL? NO . GENITOURINARY: ANY NEW CHANGE IN BLADDER CONTROL? NO . IS THERE A CHANCE YOU COULD BE ? NO . HEMATOLOGY/LYMPH: DO YOU TAKE ANY BLOOD THINNERS? (FOR EXAMPLE- COUMADIN, PLAVIX, AGGRENOX, PLATEL, PRADAXA, OR XARELTO) NO . WHEN WAS YOUR LAST DOSE? DATE: TIME: . NEUROLOGY: HAVE YOU FALLEN IN THE PAST 6 MONTHS? NO . ANY NEW EXTREMITY NUMBNESS OR WEAKNESS? NO . CARDIOLOGY: DO YOU HAVE A PACEMAKER OR DEFIBRILLATOR? NO . RESPIRATORY: HAVE YOU BEEN SICK IN THE PAST WEEK? NO . FEVER NO . FLU LIKE SYMPTOMS? NO . COUGH NO . INTEGUMENTARY: DO YOU HAVE ANY RASHES OR OPEN SORES? NO . ALLERGIC/IMMUNO: ARE YOU ALLERGIC TO SHELLFISH OR IV DYE? NO . ANY NEW ALLERGIES? NO . PSYCHIATRIC: DO YOU HAVE THOUGHTS OF HURTING YOURSELF OR SOMEONE ELSE? NO . ARE YOU ABUSED, NEGLECTED, OR IN AN UNSAFE ENVIRONMENT? NO . ENDOCRINOLOGY: ARE YOU DIABETIC? NO . OTHER: DO YOU NEED ANY PRESCRIPTIONS? YES, HYDROCODONE 10/325MG, OPANA 40MG ER, OPANA IR 5MG. . IF YES, PLEASE LIST: ____ . ANY NEW PROBLEMS WITH YOUR MEDICATIONS? NO . WHEN DID YOU LAST EAT? ____ . WHEN DID YOU LAST DRINK? ____ . WHAT DID YOU LAST DRINK? ____ . NAME OF PERSON DRIVING YOU HOME? ____ . DO YOU HAVE ANY OTHER QUESTIONS OR CONCERNS NO . VITAL SIGNS WT 205.4 LBS, HT 66 IN, BMI 33.15 INDEX, BP 126/86 MM HG, HR 63 /MIN, RR 16 /MIN, TEMP 97.9 F, OXYGEN SAT % 99%, NA INITIALS SC 14:35, REVIEWED BY: CM. EXAMINATION : PATIENT IS ALERT O X 3 AND COOPERATIVE. PATIENT AMBULATES WITH A LIMP ON THE RIGHT LEG. PATIENT'S RIGHT LEG IS WEAKER AT FLEXION AND EXTENSION COMPARED TO THE LEFT LEG. PATIENT REPORTS CHANGES IN COLOR AND TEMPERATURE OF THE RIGHT LEG. ASSESSMENTS PAIN IN RIGHT KNEE - M25.561 (PRIMARY) POLYNEUROPATHY, UNSPECIFIED - G62.9 RIGHT LOWER EXTREMITY NEUROPATHY. TREATMENT PAIN IN RIGHT KNEE REFILL OPANA ER TABLET ER 12 HOUR ABUSE-DETERRENT, 40 MG, 1 TABLET ON AN EMPTY STOMACH, ORALLY, EVERY 12 HRS MDD=2, 30 DAY(S), 60, REFILLS 0 REFILL NORCO TABLET, 10-325 MG, 1 TABLET, ORALLY, EVERY 4 HRS PRN PAIN MDD=3, 30 DAY(S), 90, REFILLS 0 REFILL OPANA TABLET, 5 MG, 1 TABLET, ORALLY, EVERY 4 HRS PRN PAIN MDD=6, 30 DAY(S), 180, REFILLS 0 NOTES: WE DISCUSSED SEVERAL ISSUES WITH MRS. SALTER'S PAIN MANAGEMENT CASE. AT THIS TIME THE PATIENT WILL CONTINUE WITH THE SAME MEDICATION REGIME BEFORE. PATIENT IS CURRENTLY USING THE OPANA AND THE NORCO FOR THE SOMATIC PAIN. PATIENT DENIES ABUSE OF ANY MEDICATION, DENIES USE OF ILLEGAL SUBSTANCES, AND STATES SHE IS ONLY USING THE MEDICATION FOR PAIN MANAGEMENT. URINE TOXICOLOGY DONE ON 03/12/17 WAS REVIEWED WITH EMMA FROM [employer] AND THE OXYCODONE FOUND COULD BE FROM THE OXYMORPHONE. PATIENT STATES THAT THE MEDICATIONS KEEP HER MOBILE AND FUNCTIONAL AND SHE WOULD NOT BE ABLE TO GET OUT OF BED IF SHE DID NOT HAVE THE MEDICATION. WE DISCUSSED THE POSSIBILITY OF A DCS AND WAS GIVEN THE INFORMATION AND PHONE NUMBERS OF THE REPS FROM [employer] AND [facility]. WE ALSO DISCUSSED THAT THE PATIENT SHOULD TRY TO LOSE WEIGHT WHICH WOULD HELP WITH PAIN RELIEF. PATIENT WILL RETURN TO THE CLINIC IN 6 WEEKS. INSTRUCTIONS WERE GIVEN, QUESTIONS WERE ANSWERED, PATIENT REPORTS UNDERSTANDING AND AGREES WITH THE PLAN. I, ANTHONY TANG, DOCUMENTED THE ABOVE INFORMATION ACTING A SCRIBE FOR DR. VILLELA. I HAVE REVIEWED THE ABOVE DOCUMENT, WRITTEN BY ANTHONY NARAYANAN AND I VERIFY THAT IT IS ACCURATE. PROCEDURES PN WORKMANS' COMP OPINION IN YOUR OPINION, WAS THE INCIDENT THAT THE PATIENT DESCRIBED THE COMPETENT MEDICAL CAUSE OF THIS INJURY/ILLNESS? YES ARE THE PATIENT'S COMPLAINTS CONSISTENT WITH HIS/HER HISTORY OF THE INJURY/ILLNESS? YES IS THE PATIENT'S HISTORY OF THE INJURY/ILLNESS CONSISTENT WITH YOUR OBJECTIVE FINDING? YES WHAT IS THE PERCENTAGE OF TEMPORARY IMPAIRMENT? TOTAL = 100% IS THE PATIENT WORKING? NO DOCTOR ON SITE: JOE VALENTINE MD PROCEDURE CODES FA211 ESTABILISHED PATIENT [facility] FACILITY CHARGE G8427 DOC MEDS VERIFIED W/PT OR RE G8730 PAIN ASSESS POS TOOL F/U PLAN DOC DISPOSITION & COMMUNICATION FOLLOW UP 6 WEEKS ELECTRONICALLY SIGNED BY JOE VILLELA MD ON 05/11/2017 AT 09:36 PM EDT DISCLAIMER : THIS IS A VISIT SUMMARY EXTRACTED FROM THE [employer] CHART. IT IS NOT A COPY OF THE [employer] PROGRESS NOTE. RADHA
== END ==
LOC: M PAIN 14:20
PROVIDERS: ATTEND Anesthesiology
DX: M25.561 Pain in right knee (principal); G62.9 Polyneuropathy, unspecified; Z79.891 Long term (current) use of opiate analgesic; Z79.899 Other long term (current) drug therapy; Z88.8 Allergy status to other drugs, medicaments and biological substances; Z88.0 Allergy status to penicillin; Z88.2 Allergy status to sulfonamides; Z88.1 Allergy status to other antibiotic agents; Z91.040 Latex allergy status

== ENCOUNTER → 2017-07-23 | Outpatient (CLI) | payer OTHER ==
--- NOTE | 2017-07-29 01:29 | ECWPNPC ---
PATIENT NAME: NICOLE SALTER : 1965 GENDER: FEMALE VISIT DATE: 07/23/2017 DISCHARGE DATE: 07/23/17 1633 VISIT LOCKED DATE TIME: PHYSICIAN: JOE VILLELA RESOURCE: JOE VILLELA REASON FOR APPOINTMENT 1. W/C RT LEG,KNEE,BACK HISTORY OF PRESENT ILLNESS HISTORY OF PRESENT ILLNESS: PAIN THE PATIENT DESCRIBES THE PAIN... 51 YEAR OLD FEMALE PATIENT WITH HISTORY OF CHRONIC BACK, RIGHT ARM, RIGHT KNEE, AND RIGHT LEG PAIN. PATIENT DESCRIBES THE PAIN THE ACHING, BURNING, STABBING, TENDER, SORE, SHOOTING, AND HAVING IT ALL THE TIME WITH A PAIN SCORE OF 7/10 ON TODAY'S VISIT. 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 PATIENT WAS SITTING ON CHAIR TRIED TO MOVED FORWARD WHEN THE CHAIR GAVE OUT FROM UNDER HER INJURING HER BACK, RIGHT ARM, RIGHT KNEE, AND RIGHT LEG. PATIENT STATES THAT SHE HAS HAD 3 KNEE SURGERIES. PATIENT REPORTS DOING PHYSICAL THERAPY EXERCISES AT HOME TO TRY TO STAY LIMBER. PATIENT IS CURRENTLY USING LYRICA, OPANA, AND NORCO FOR PAIN MANAGEMENT AND STATES WITHOUT HER MEDICATION SHE WOULD NOT BE ABLE TO FUNCTION. PATIENT DENIES UNEXPLAINABLE WEIGHT LOSS, FEVER, CHILLS, NEW CHANGES ON HER URINARY OR BOWEL CONTROL. FALL RISK SCREENING: SCREENING :NO FALLS IN THE PAST YEAR CURRENT MEDICATIONS TAKING LASIX 60 MG TABLET 1 TABLET ORALLY ONCE A DAY TAKING CARDIZEM 120 MG TABLET ORALLY ONCE DAILY TAKING XANAX 0.5 MG TABLET 1 TABLET ORALLY TWICE A DAY NEEDED TAKING LYRICA 300 MG CAPSULE 1 CAPSULE ORALLY Q 8 HRS MDD=3 TAKING BIOTIN 300 MCG TABLET 1 TABLET ORALLY ONCE A DAY TAKING VITAMIN E 400 UNIT TABLET 2 TABLETS ORALLY ONCE A DAY TAKING OPANA ER 40 MG TABLET ER 12 HOUR ABUSE-DETERRENT 1 TABLET ON AN EMPTY STOMACH ORALLY EVERY 12 HRS MDD=2 TAKING OPANA 5 MG TABLET 1 TABLET ORALLY EVERY 4 HRS PRN PAIN MDD=6 TAKING NORCO 10-325 MG TABLET 1 TABLET ORALLY EVERY 4 HRS PRN PAIN MDD=3 MEDICATION LIST REVIEWED AND RECONCILED WITH THE PATIENT PAST MEDICAL HISTORY GERD HTN HIGH CHOLESTEROL ANXIETY BRONCHIATUS DEPRESSION RSD SINUSITIS PHARYNGITIS ALLERGIES AMITRIPTYLINE HCL: RASH AND SWELLING: ALLERGY BACITRACIN: RASH: ALLERGY INDOCIN: SWELLING AND RASH: ALLERGY VOLTAREN: RASH: ALLERGY LIDOCAINE: RASH: ALLERGY MORPHINE SULFATE: SWELLING AND ITCHING: ALLERGY NAPROXEN: SWELLING: ALLERGY NEOMYCIN SULFATE: RASH: ALLERGY POLYMYXIN B-TRIMETHOPRIM: RASH: ALLERGY OMEPRAZOLE: ITCHING: ALLERGY DICLOFENAC: SWELLING AND RASH: ALLERGY CLARITHROMYCIN: RASH: ALLERGY DEXILANT: FACIAL SWELLING: ALLERGY CELEBREX: RASH AND CHEST PAIN: ALLERGY LATEX (FOR ALLERGY USE ONLY): RASH AND BLISTERS: ALLERGY DULOXETINE HCL: CHEST PAIN: ALLERGY AMINOGLYCOSIDES: RASH: ALLERGY PENICILLIN (FOR ALLERGIES USE ONLY): ANAPHYLAXIS: ALLERGY SULFA (FOR ALLERGY USE ONLY): CHEST PAIN AND RASH: ALLERGY NSAIDS AND IBUPROFEN: SWELLING, DISTRESS, AND DIARRHEA: ALLERGY SOCIAL HISTORY GENERAL: TOBACCO USE ARE YOU A: NONSMOKER . LEARNING BARRIERS / SPECIAL NEEDS ORIENTED TO PLAN OF CARE: PATIENT, PAIN MANAGEMENT PATIENT, ORIENTED TO PLAN OF CARE: PATIENT, PAIN MANAGEMENT PATIENT. NEW PATIENT PAIN DIARY TODAY'S VISIT NOTES, FROM 0-10, WHAT LEVEL IS YOUR PAIN TODAY? 0. PAIN CLINIC PFS, CLERGY, PUBLIC HEALTH REFERRALS HAS THE PATIENT BEEN EDUCATED REGARDING HIS/HER PLAN OF CARE?YES HAS THE PATIENT BEEN EDUCATED REGARDING PAIN, THE RISK FOR PAIN, THE IMPORTANCE OF EFFECTIVE PAIN MANAGEMENT, AND THE PAIN ASSESSMENT PROCESS?YES REVIEW OF SYSTEMS REVIEWED BY: PROVIDER: JOE VILLELA MD . CONSTITUTIONAL: ANY CHANGE IN YOUR MEDICAL CONDITION? NO . CHILLS NO . FEVER NO . INFECTION: DO YOU HAVE NEW INFECTIONS? NO . DO YOU HAVE HISTORY OF MRSA? NO . MUSCULOSKELETAL: ANY NEW PATTERNS OF PAIN OR NUMBNESS? YES, BOTH FEET HURT REALLY BAD AND ARE PRICKLY. WHEN WALKING AND FEET ARE SWOLLEN. . GASTROENTEROLOGY: ANY NEW CHANGE IN BOWEL CONTROL? NO . GENITOURINARY: ANY NEW CHANGE IN BLADDER CONTROL? NO . IS THERE A CHANCE YOU COULD BE ? NO . HEMATOLOGY/LYMPH: DO YOU TAKE ANY BLOOD THINNERS? (FOR EXAMPLE- COUMADIN, PLAVIX, AGGRENOX, PLATEL, PRADAXA, OR XARELTO) NO . WHEN WAS YOUR LAST DOSE? DATE: TIME: . NEUROLOGY: HAVE YOU FALLEN IN THE PAST 6 MONTHS? NO . ANY NEW EXTREMITY NUMBNESS OR WEAKNESS? NO . CARDIOLOGY: DO YOU HAVE A PACEMAKER OR DEFIBRILLATOR? NO . RESPIRATORY: HAVE YOU BEEN SICK IN THE PAST WEEK? NO . FEVER NO . FLU LIKE SYMPTOMS? NO . COUGH NO . INTEGUMENTARY: DO YOU HAVE ANY RASHES OR OPEN SORES? NO . ALLERGIC/IMMUNO: ARE YOU ALLERGIC TO SHELLFISH OR IV DYE? NO . ANY NEW ALLERGIES? NO . PSYCHIATRIC: DO YOU HAVE THOUGHTS OF HURTING YOURSELF OR SOMEONE ELSE? NO . ARE YOU ABUSED, NEGLECTED, OR IN AN UNSAFE ENVIRONMENT? NO . ENDOCRINOLOGY: ARE YOU DIABETIC? NO . OTHER: DO YOU NEED ANY PRESCRIPTIONS? YES, DUE AUG 03 . IF YES, PLEASE LIST: ____ . ANY NEW PROBLEMS WITH YOUR MEDICATIONS? NO . WHEN DID YOU LAST EAT? ____ . WHEN DID YOU LAST DRINK? ____ . WHAT DID YOU LAST DRINK? ____ . NAME OF PERSON DRIVING YOU HOME? ____ . DO YOU HAVE ANY OTHER QUESTIONS OR CONCERNS YES, LOTS OF EDEMA OF BOTH LOWER LEGS AND FEET . VITAL SIGNS WT 210 LBS, HT 66 IN, BMI 33.89 INDEX, BP 130/81 MM HG, HR 71 /MIN, RR 16 /MIN, TEMP 96.6 F, OXYGEN SAT % 98%, NA INITIALS SC 15:21, REVIEWED BY: NIC. EXAMINATION : PATIENT IS ALERT O X 3 AND COOPERATIVE. PATIENT AMBULATES WITH A LIMP ON THE RIGHT LEG. PATIENT'S RIGHT LEG IS WEAKER AT FLEXION AND EXTENSION COMPARED TO THE LEFT LEG. PATIENT REPORTS CHANGES IN COLOR AND TEMPERATURE OF THE RIGHT LEG. ASSESSMENTS PAIN IN RIGHT KNEE - M25.561 (PRIMARY) TREATMENT PAIN IN RIGHT KNEE REFILL OPANA ER TABLET ER 12 HOUR ABUSE-DETERRENT, 40 MG, 1 TABLET ON AN EMPTY STOMACH, ORALLY, EVERY 12 HRS MDD=2, 30 DAY(S), 60, REFILLS 0 REFILL OPANA TABLET, 5 MG, 1 TABLET, ORALLY, EVERY 4 HRS PRN PAIN MDD=6, 30 DAY(S), 175, REFILLS 0 REFILL NORCO TABLET, 10-325 MG, 1 TABLET, ORALLY, EVERY 4 HRS PRN PAIN MDD=3, 30 DAY(S), 90, REFILLS 0 NOTES: WE DISCUSSED SEVERAL ISSUES WITH MRS. SALTER'S PAIN MANAGEMENT CASE. AT THIS TIME THE PATIENT WILL CONTINUE WITH THE SAME MEDICATION REGIME BEFORE. PATIENT IS CURRENTLY USING LYRICA FOR THE NEUROPATHIC PAIN, AND OPANA AND THE NORCO FOR THE SOMATIC PAIN. PATIENT WILL START GABAPENTIN FOR THE NEUROPATHIC PAIN. MRS. HILL WILL TRY TO DECREASE THE USE OF NARCOTICS AND USE THE GABAPENTIN INSTEAD. PATIENT WAS ADVISED TO STOP THE MEDICATION IS SHE HAD ANY ADVERSE SIDE EFFECTS. PATIENT DENIES ABUSE OF ANY MEDICATION, DENIES USE OF ILLEGAL SUBSTANCES, AND STATES SHE IS ONLY USING THE MEDICATION FOR PAIN MANAGEMENT. URINE TOXICOLOGY DONE ON 03/12/17 WAS REVIEWED WITH TONE FROM [employer] AND THE OXYCODONE FOUND COULD BE FROM THE OXYMORPHONE. PATIENT STATES THAT THE MEDICATIONS KEEP HER MOBILE AND FUNCTIONAL AND SHE WOULD NOT BE ABLE TO GET OUT OF BED IF SHE DID NOT HAVE THE MEDICATION. WE AGAIN DISCUSSED THE DCS AND WE WILL NEED TO RECEIVED A CLEARANCE FROM THE MANAGER POST TO PROCEED WITH THE TRIAL. PATIENT WILL FOLLOW UP IN 4 WEEKS. INSTRUCTIONS WERE GIVEN, QUESTIONS WERE ANSWERED, PATIENT REPORTS UNDERSTANDING AND AGREES WITH THE PLAN. I, ANTHONY TANG, DOCUMENTED THE ABOVE INFORMATION ACTING A SCRIBE FOR DR. VILLELA. I HAVE REVIEWED THE ABOVE DOCUMENT, WRITTEN BY ANTHONY NARAYANAN AND I VERIFY THAT IT IS ACCURATE. OTHERS REFILL LYRICA CAPSULE, 300 MG, 1 CAPSULE, ORALLY, Q 8 HRS MDD=3, 30 DAY(S), 90, REFILLS 5 PROCEDURES PN WORKMANS' COMP OPINION IN YOUR OPINION, WAS THE INCIDENT THAT THE PATIENT DESCRIBED THE COMPETENT MEDICAL CAUSE OF THIS INJURY/ILLNESS? YES ARE THE PATIENT'S COMPLAINTS CONSISTENT WITH HIS/HER HISTORY OF THE INJURY/ILLNESS? YES IS THE PATIENT'S HISTORY OF THE INJURY/ILLNESS CONSISTENT WITH YOUR OBJECTIVE FINDING? YES WHAT IS THE PERCENTAGE OF TEMPORARY IMPAIRMENT? TOTAL = 100% IS THE PATIENT WORKING? NO DOCTOR ON SITE: JOE VALENTINE MD PROCEDURE CODES FA211 ESTABILISHED PATIENT [facility] FACILITY CHARGE G8427 DOC MEDS VERIFIED W/PT OR RE G8730 PAIN ASSESS POS TOOL F/U PLAN DOC DISPOSITION & COMMUNICATION FOLLOW UP 3 WEEKS ELECTRONICALLY SIGNED BY JOE VILLELA MD ON 07/28/2017 AT 12:52 PM EDT DISCLAIMER : THIS IS A VISIT SUMMARY EXTRACTED FROM THE [employer] CHART. IT IS NOT A COPY OF THE [employer] PROGRESS NOTE. RADHA
== END ==
LOC: M PAIN 14:30
PROVIDERS: ATTEND Anesthesiology
DX: M25.561 Pain in right knee (principal); Z79.891 Long term (current) use of opiate analgesic; Z79.899 Other long term (current) drug therapy; Z88.0 Allergy status to penicillin; Z88.2 Allergy status to sulfonamides; Z88.1 Allergy status to other antibiotic agents; Z88.8 Allergy status to other drugs, medicaments and biological substances; Z91.040 Latex allergy status

== ENCOUNTER → 2017-10-27 | Outpatient (CLI) | payer OTHER | LOC: M PAIN 15:00 | DX: G89.29 Other chronic pain (principal); M54.5 Low back pain; M25.561 Pain in right knee; M79.621 Pain in right upper arm; M79.604 Pain in right leg; I10 Essential (primary) hypertension; K21.9 Gastro-esophageal reflux disease without esophagitis; F41.9 Anxiety disorder, unspecified; F32.9 Major depressive disorder, single episode, unspecified; Z88.0 Allergy status to penicillin; Z88.1 Allergy status to other antibiotic agents; Z88.2 Allergy status to sulfonamides; Z88.6 Allergy status to analgesic agent; Z88.5 Allergy status to narcotic agent; Z88.8 Allergy status to other drugs, medicaments and biological substances; Z91.040 Latex allergy status; Z79.891 Long term (current) use of opiate analgesic; Z79.899 Other long term (current) drug therapy | CPT/HCPCS: G0463 ==

== ENCOUNTER → 2018-03-10 | Outpatient (CLI) | payer OTHER | LOC: M PAIN 14:30 | DX: G89.29 Other chronic pain (principal); M25.561 Pain in right knee; Z79.891 Long term (current) use of opiate analgesic; G62.9 Polyneuropathy, unspecified; M54.40 Lumbago with sciatica, unspecified side; K21.9 Gastro-esophageal reflux disease without esophagitis; I10 Essential (primary) hypertension; E78.00 Pure hypercholesterolemia, unspecified; F32.9 Major depressive disorder, single episode, unspecified; Z79.899 Other long term (current) drug therapy; Z88.0 Allergy status to penicillin; Z88.2 Allergy status to sulfonamides; Z88.1 Allergy status to other antibiotic agents; Z88.8 Allergy status to other drugs, medicaments and biological substances; Z91.040 Latex allergy status; Z88.6 Allergy status to analgesic agent; Z88.5 Allergy status to narcotic agent | CPT/HCPCS: G0463 ==

== ENCOUNTER → 2018-08-16 | Outpatient (CLI) | payer OTHER | LOC: M PAIN 09:30 | DX: M25.561 Pain in right knee (principal); G62.9 Polyneuropathy, unspecified; K21.9 Gastro-esophageal reflux disease without esophagitis; I10 Essential (primary) hypertension; E78.00 Pure hypercholesterolemia, unspecified; F43.9 Reaction to severe stress, unspecified; F32.9 Major depressive disorder, single episode, unspecified; Z79.891 Long term (current) use of opiate analgesic; Z79.899 Other long term (current) drug therapy; Z88.0 Allergy status to penicillin; Z88.1 Allergy status to other antibiotic agents; Z88.5 Allergy status to narcotic agent; Z88.6 Allergy status to analgesic agent; Z88.8 Allergy status to other drugs, medicaments and biological substances; Z91.040 Latex allergy status | CPT/HCPCS: G0463 ==

== ENCOUNTER → 2018-12-16 | Outpatient (CLI) | payer OTHER ==
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
== END ==
LOC: M PAIN 14:45
PROVIDERS: ATTEND Anesthesiology
DX: G89.29 Other chronic pain (principal); M54.5 Low back pain; M79.18 Myalgia, other site; M25.561 Pain in right knee; M79.2 Neuralgia and neuritis, unspecified; K21.9 Gastro-esophageal reflux disease without esophagitis; I10 Essential (primary) hypertension; E78.00 Pure hypercholesterolemia, unspecified; F41.9 Anxiety disorder, unspecified; F32.9 Major depressive disorder, single episode, unspecified; Z79.891 Long term (current) use of opiate analgesic; Z79.899 Other long term (current) drug therapy; Z88.0 Allergy status to penicillin; Z88.5 Allergy status to narcotic agent; Z88.6 Allergy status to analgesic agent; Z88.8 Allergy status to other drugs, medicaments and biological substances

== ENCOUNTER → 2019-01-13 | Outpatient (CLI) | payer OTHER | LOC: M PAIN 13:45 | PROVIDERS: ATTEND Anesthesiology | DX: M54.5 Low back pain (principal); M25.561 Pain in right knee; Z53.29 Procedure and treatment not carried out because of patient's decision for other reasons ==

== ENCOUNTER → 2019-02-07 | Outpatient (CLI) | payer OTHER ==
[~2019-02-07] MED LIST changes: -/CLON1TA PO; -/ESOM40CA; -/ESOM40CA OR; -/ESOM40CA PO; +CLON-412 PO; +NEXI1CAP3; +NEXI1CAP3 OR; +NEXI1CAP3 PO; -NUCY100T11 PO; +TAPE100T2 PO
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
== END ==
LOC: M PAIN 14:30
PROVIDERS: ATTEND Anesthesiology
DX: M79.2 Neuralgia and neuritis, unspecified (principal); M25.561 Pain in right knee; M54.5 Low back pain; G89.29 Other chronic pain; K21.9 Gastro-esophageal reflux disease without esophagitis; I10 Essential (primary) hypertension; E78.00 Pure hypercholesterolemia, unspecified; F41.9 Anxiety disorder, unspecified; F32.9 Major depressive disorder, single episode, unspecified; Z79.899 Other long term (current) drug therapy; Z88.0 Allergy status to penicillin; Z88.1 Allergy status to other antibiotic agents; Z88.2 Allergy status to sulfonamides; Z88.5 Allergy status to narcotic agent; Z88.6 Allergy status to analgesic agent; Z88.8 Allergy status to other drugs, medicaments and biological substances; Z91.040 Latex allergy status

== ENCOUNTER → 2019-03-24 | Outpatient (CLI) | payer OTHER ==
--- NOTE | 2019-04-03 00:26 | ECWPNPC ---
PATIENT NAME: NICOLE SALTER : 1965 GENDER: FEMALE VISIT DATE: 03/24/2019 DISCHARGE DATE: 03/24/19 1706 VISIT LOCKED DATE TIME: PHYSICIAN: JOE VILLELA MD RESOURCE: JOE VILLELA MD REASON FOR APPOINTMENT 1. [address] Hubbard- NEED TO TALK ABOUT AND DOCUMENT THE NEED FOR A THORACIC MRI HISTORY OF PRESENT ILLNESS HISTORY OF PRESENT ILLNESS: PAIN THE PATIENT DESCRIBES THE PAIN... 53 YEAR OLD FEMALE PATIENT WITH A HISTORY OF CHRONIC LOW BACK AND RIGHT KNEE PAIN. THE PATIENT DESCRIBES THE PAIN BURNING, SORE, TENDER, STABBING, SHOOTING, AND CONTINUOUS WITH A PAIN SCORE OF 5-10/10 DEPENDING ON PHYSICAL ACTIVITY. 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 THE PATIENT SAYS THE PAIN IN HER RIGHT KNEE RADIATES UP INTO HER THIGH AREA. THE PATIENT REPORTS HAVING 3 SURGERIES OVER HER RIGHT KNEE, BUT HER PAIN PERSISTS. THE PATIENT SAYS THAT SHE HAS DIFFICULTY BENDING OVER DUE TO THIS PAIN. WE DISCONTINUED THE PATIENT'S GABAPENTIN AT THE PREVIOUS VISIT BECAUSE THE PATIENT SAID IT HAS NOT BEEN HELPING. THE PATIENT IS CURRENTLY USING OXYMORPHONE AND LYRICA TO AID IN PAIN RELIEF. THE PATIENT IS INTERESTED IN A DCS TRIAL, SO SHE NEEDS A NEW THORACIC AND LUMBAR MRI AND A PSYCHOLOGICAL EVALUATION TO PROCEED, BUT THEY WERE BOTH DENIED. THE PATIENT ALSO SAYS SHE WOULD LIKE TO CONTINUE WITH PHYSICAL THERAPY, BUT THAT WAS DENIED WELL. PATIENT DENIES UNEXPLAINABLE WEIGHT LOSS, FEVER, CHILLS, NEW CHANGES ON HER URINARY OR BOWEL CONTROL. FALL RISK SCREENING: SCREENING :NO FALLS REPORTED IN THE LAST YEAR CURRENT MEDICATIONS TAKING LASIX 40 MG TABLET 1 TABLET ORALLY ONCE A DAY TAKING CARDIZEM 120 MG TABLET ORALLY ONCE DAILY TAKING VITAMIN E 400 UNIT TABLET 2 TABLETS ORALLY ONCE A DAY TAKING VITAMIN D (CHOLECALCIFEROL) 1000 UNIT TABLET 1 TABLET ORALLY ONCE A DAY TAKING OXYMORPHONE HCL 10 MG TABLET 1 TAB ORALLY DAILY PRN FOR PAIN MDD1 TAKING OXYMORPHONE HCL ER 20 MG TABLET EXTENDED RELEASE 12 HOUR 1 TABLET 1 HOUR BEFORE OR 2 HOURS AFTER EATING ORALLY FOR PAIN EVERY 12 HRS MDD2 TAKING LYRICA 300 MG CAPSULE 1 CAPSULE ORALLY FOR PAIN Q 8 HRS MDD=3 TAKING BIOTIN 300 MCG TABLET 1 TABLET ORALLY ONCE A DAY NOT-TAKING GABAPENTIN 300 MG CAPSULE 1 CAPSULE ORALLY THREE TIMES DAILY NOT-TAKING OXYCODONE HCL 5 MG TABLET 1 TABLET NEEDED ORALLY EVERY 12 HRS MDD2 NOT-TAKING CIPRO HC 0.2-1 % SUSPENSION 3 DROPS INTO AFFECTED EAR OTIC TWICE A DAY NOT-TAKING OPANA ER 20 MG TABLET ER 12 HOUR ABUSE-DETERRENT 1 TABLET 1 HOUR BEFORE OR 2 HOURS AFTER EATING ORALLY EVERY 12 HRS MDD=2, NOTES: DUPLICATE NOT-TAKING PROTONIX 40 MG TABLET DELAYED RELEASE 1 TABLET ORALLY ONCE A DAY NOT-TAKING ACETAMINOPHEN 500 MG TABLET 1 TABLET NEEDED ORALLY EVERY 8 HRS NOT-TAKING DULOXETINE HCL 20 MG CAPSULE DELAYED RELEASE PARTICLES 1 CAPSULE ORALLY DAILY NOT-TAKING OXYMORPHONE HCL ER 30 MG TABLET EXTENDED RELEASE 12 HOUR 1 TABLET ORALLY EVERY 12 HRS CHRONIC PAIN MDD=2 NOT-TAKING OXYMORPHONE HCL ER 20 MG TABLET EXTENDED RELEASE 12 HOUR 1 TABLET 1 HOUR BEFORE OR 2 HOURS AFTER EATING ORALLY EVERY 12 HRS MDD=2 NOT-TAKING XANAX 0.5 MG TABLET 1 TABLET ORALLY TWICE A DAY NEEDED NOT-TAKING NORCO 10-325 MG TABLET 1 TABLET ORALLY Q 6-8 HRS PRN PAIN MDD=3 MEDICATION LIST REVIEWED AND RECONCILED WITH THE PATIENT PAST MEDICAL HISTORY GERD HTN HIGH CHOLESTEROL ANXIETY BRONCHIATUS DEPRESSION RSD SINUSITIS PHARYNGITIS BRONCHITIS ALLERGIES AMITRIPTYLINE HCL: RASH AND SWELLING - ALLERGY BACITRACIN: RASH - ALLERGY INDOCIN: SWELLING AND RASH - ALLERGY VOLTAREN: RASH - ALLERGY LIDOCAINE: RASH - ALLERGY MORPHINE SULFATE: SWELLING AND ITCHING - ALLERGY NAPROXEN: SWELLING - ALLERGY NEOMYCIN SULFATE: RASH - ALLERGY POLYMYXIN B-TRIMETHOPRIM: RASH - ALLERGY OMEPRAZOLE: ITCHING - ALLERGY DICLOFENAC: SWELLING AND RASH - ALLERGY CLARITHROMYCIN: RASH - ALLERGY DEXILANT: FACIAL SWELLING - ALLERGY CELEBREX: RASH AND CHEST PAIN - ALLERGY LATEX (FOR ALLERGY USE ONLY): RASH AND BLISTERS - ALLERGY DULOXETINE HCL: CHEST PAIN - ALLERGY AMINOGLYCOSIDES: RASH - ALLERGY PENICILLIN (FOR ALLERGIES USE ONLY): ANAPHYLAXIS - ALLERGY SULFA (FOR ALLERGY USE ONLY): CHEST PAIN AND RASH - ALLERGY NSAIDS AND IBUPROFEN: SWELLING, DISTRESS, AND DIARRHEA - ALLERGY SURGICAL HISTORY MULTIPLE KNEE RIGHT,HYSTERECTOMY,CHOLECYSTECTOMY,TONSILLECTOMY,MULT LAPAROSCOPIES,LEFT SHOULDER SKIN CA FAMILY HISTORY FATHER: , DIAGNOSED WITH DIABETES, CANCER MOTHER: , CANCER, HYPERTENSION SIBLINGS: CANCER FATHER FROM CANCERMOTHER AND SISTER FROM BREAST CANCER2 BROTHERS WITH HISTORY OF BLADDER CANCER. SOCIAL HISTORY GENERAL: TOBACCO USE ARE YOU A: NONSMOKER. DIET: REGULAR. LANGUAGE LANGUAGES SPOKEN:[place] DOMESTIC VIOLENCE DO YOU FEEL SAFE IN YOUR ENVIRONMENT?YES NEW PATIENT PAIN DIARY PATIENT DESCRIBES PAIN :ACHING, BURNING, HAVE IT ALL THE TIME, STABBING, TENDER, SORE FROM 0-10, WHAT LEVEL IS YOUR PAIN TODAY?7.5 7-8 RECREATIONAL DRUG USE DRUG USE?NO EXERCISE: DAILY LEG EXERCISES. LEARNING BARRIERS / SPECIAL NEEDS BARRIERS TO LEARNING?NO HEARING IMPAIRED?NO VISION IMPAIRED?YES :CORRECTIVE LENSES COGNITIVELY IMPAIRED?NO READINESS TO LEARN?YES PAIN CLINIC PFS, CLERGY, PUBLIC HEALTH REFERRALS PFS REFERRAL NEEDED?NO CLERGY REFERRAL NEEDED?NO PUBLIC HEALTH REFERRAL NEEDED?NO WAS THE PROVIDER NOTIFIED OF ANY PERTINENT INFO?NO N/A HAS THE PATIENT BEEN EDUCATED REGARDING HIS/HER PLAN OF CARE?YES HAS THE PATIENT BEEN EDUCATED REGARDING PAIN, THE RISK FOR PAIN, THE IMPORTANCE OF EFFECTIVE PAIN MANAGEMENT, AND THE PAIN ASSESSMENT PROCESS?YES LATEX QUESTIONNAIRE LATEX ALLERGY : HAVE YOU EVER DEVELOPED ANY TYPE OF REACTION AFTER HANDLING LATEX PRODUCTS SUCH RUBBER GLOVES, CONDOMS, DIAPHRAGMS, BALLOONS, SOCKS, OR UNDERWEAR?YES - PLEASE INDICATE :RUBBER GLOVES PT GETS RASH AND BLISTERS WHEN EXPOSED TO LATEX DATE ASKED : 02/07/2019 CAFFEINE CAFFEINE USE?YES HOW OFTEN AND HOW MUCH? 1 CUP COFFEE DAILY OF Q OTHER DAY PEPSI Q OTHER DAY ADVANCE DIRECTIVE ADVANCE DIRECTIVE DISCUSSED WITH PATIENT:YES PT DOES NOT HAVE HCP. INFORMATION PACKET GIVEN. ASSISTANCE DECLINED. 03/24/19 TENRIISM [id number] CATHOLIC ALCOHOL SCREENING DID YOU HAVE A DRINK CONTAINING ALCOHOL IN THE PAST YEAR?NO POINTS0 INTERPRETATIONNEGATIVE REVIEWED WITH PT 02/07/19 1544 BVREVIEWED WITH PT 03/24/19 1519 BV. HOSPITALIZATION/MAJOR DIAGNOSTIC PROCEDURE SURGERIES REVIEW OF SYSTEMS REVIEWED BY: PROVIDER: JOE VILLELA MD . CONSTITUTIONAL: ANY CHANGE IN YOUR MEDICAL CONDITION? NO . CHILLS NO . FEVER NO . INFECTION: DO YOU HAVE NEW INFECTIONS? NO . DO YOU HAVE HISTORY OF MRSA? NO . MUSCULOSKELETAL: ANY NEW PATTERNS OF PAIN OR NUMBNESS? YES, PT HAS NOTICED INCREASE IN INTENSITY OF PAIN OVER THE PAST COUPLE MONTHS . GASTROENTEROLOGY: ANY NEW CHANGE IN BOWEL CONTROL? NO . GENITOURINARY: ANY NEW CHANGE IN BLADDER CONTROL? NO . IS THERE A CHANCE YOU COULD BE ? NO . HEMATOLOGY/LYMPH: DO YOU TAKE ANY BLOOD THINNERS? (FOR EXAMPLE- COUMADIN, PLAVIX, AGGRENOX, PLATEL, PRADAXA, OR XARELTO) NO . WHEN WAS YOUR LAST DOSE? DATE: TIME: . NEUROLOGY: HAVE YOU FALLEN IN THE PAST 12 MONTHS? NO . ANY NEW EXTREMITY NUMBNESS OR WEAKNESS? NO . CARDIOLOGY: DO YOU HAVE A PACEMAKER OR DEFIBRILLATOR? NO . RESPIRATORY: HAVE YOU BEEN SICK IN THE PAST WEEK? NO . FEVER NO . FLU LIKE SYMPTOMS? NO . COUGH NO . INTEGUMENTARY: DO YOU HAVE ANY RASHES OR OPEN SORES? YES, PT HAS A SMALL SORE/BITE ON LEFT CALF THAT SHE GOT ABOUT A WEEK AGO. STATES SORE HAS NOT SPREAD AND DENIES ITCHYNESS/PAIN. PT STATES SHE IS GOING TO SEE URGENT CARE TODAY REGARDING THIS SORE. . ALLERGIC/IMMUNO: ARE YOU ALLERGIC TO IV DYE? NO . ANY NEW ALLERGIES? NO . PSYCHIATRIC: DO YOU HAVE THOUGHTS OF HURTING YOURSELF OR SOMEONE ELSE? NO . ARE YOU ABUSED, NEGLECTED, OR IN AN UNSAFE ENVIRONMENT? NO . ENDOCRINOLOGY: ARE YOU DIABETIC? NO . OTHER: DO YOU NEED ANY PRESCRIPTIONS? NO . IF YES, PLEASE LIST: ____ . ANY NEW PROBLEMS WITH YOUR MEDICATIONS? NO . WHEN DID YOU LAST EAT? ____ . WHEN DID YOU LAST DRINK? ____ . WHAT DID YOU LAST DRINK? ____ . NAME OF PERSON DRIVING YOU HOME? ____ . DO YOU HAVE ANY OTHER QUESTIONS OR CONCERNS NO . VITAL SIGNS WT 207.4 LBS, HT 66 IN, BMI 33.47 INDEX, BP 129/75 MM HG, HR 87 /MIN, RR 16 /MIN, TEMP 97.2 F, OXYGEN SAT % 98%, NA INITIALS SC 15:16, REVIEWED BY: BV. EXAMINATION GENERAL EXAMINATION: PATIENT IS ALERT O X 3 AND COOPERATIVE. PATIENT IS LIMPING FROM HER RIGHT LET. TENDERNESS IN THE LOW BACK AREA AND OVER THE RIGHT KNEE. ASSESSMENTS PAIN IN RIGHT KNEE - M25.561 (PRIMARY) NEURALGIA OF RIGHT LOWER EXTREMITY - M79.2 LOW BACK PAIN - M54.5 OTHER CHRONIC PAIN - G89.29 TREATMENT PAIN IN RIGHT KNEE REFILL LYRICA CAPSULE, 300 MG, 1 CAPSULE, ORALLY FOR PAIN, Q 8 HRS MDD=3, 30 DAY(S), 90, REFILLS 0 CLINICAL NOTES: WE DISCUSSED SEVERAL ISSUES WITH MRS. SALTER'S PAIN MANAGEMENT CASE. I WILL REFER THE PATIENT TO DR. KEYES FOR A SURGICAL OPINION FOR HER RIGHT KNEE. THE PATIENT WILL CONTINUE USING LYRICA FOR THE NEUROPATHIC PAIN AND OXYMORPHONE FOR THE SOMATIC PAIN IN THE LOW BACK BECAUSE SHE STATES IT HAS BEEN HELPING MORE THAN OXYCODONE. ISTOP [id number] WAS REVIEWED. THE PATIENT BROUGHT HER MEDICATIONS WITH HER TO TODAY'S VISIT. I WILL PERFORM A PILL COUNTING TODAY. URINE TOXICOLOGY DONE ON 12/16/2018 SHOWS CONCURRENT RESULTS. WE HAD A DISCUSSION ABOUT THE USE OF OPIOIDS AND THE PATIENT EXPRESSES THAT SHE WOULD LIKE THE REDUCE THEM, BUT THE OTHER ALTERNATIVES HAVE BEEN DENIED BY WORKER'S COMPENSATION. THE PATIENT IS INTERESTED IN A DCS TRIAL FOR THE NEURALGIA AND RIGHT KNEE PAIN SO SHE CAN REDUCE THE USE OF HER OPIOIDS, SO I WILL REQUEST A PSYCHOLOGICAL EVALUATION TO PROCEED WITH THE TRIAL AND A LUMBAR AND THORACIC MRI TO BE SURE THERE IS ADEQUATE SPACE TO PASS THE CABLES THROUGH. THE PATIENT WILL FOLLOW UP IN 2 MONTHS. INSTRUCTIONS WERE GIVEN, QUESTIONS WERE ANSWERED, PATIENT REPORTS UNDERSTANDING AND AGREES WITH THE PLAN. I, JOSE VICKERS, DOCUMENTED THE ABOVE INFORMATION ACTING A SCRIBE FOR DR. VILLELA. I HAVE REVIEWED THE ABOVE DOCUMENT, WRITTEN BY JOSE NARAYANAN AND I VERIFY THAT IT IS ACCURATE. . OTHERS REFILL OXYMORPHONE HCL TABLET, 10 MG, 1 TAB, ORALLY, DAILY PRN FOR PAIN MDD1, 30 DAYS, 30, REFILLS 0 REFILL OXYMORPHONE HCL ER TABLET EXTENDED RELEASE 12 HOUR, 20 MG, 1 TABLET 1 HOUR BEFORE OR 2 HOURS AFTER EATING, ORALLY FOR PAIN, EVERY 12 HRS MDD2, 30 DAYS, 60, REFILLS 0 PROCEDURES PN WORKMANS' COMP OPINION IN YOUR OPINION, WAS THE INCIDENT THAT THE PATIENT DESCRIBED THE COMPETENT MEDICAL CAUSE OF THIS INJURY/ILLNESS? YES ARE THE PATIENT'S COMPLAINTS CONSISTENT WITH HIS/HER HISTORY OF THE INJURY/ILLNESS? YES IS THE PATIENT'S HISTORY OF THE INJURY/ILLNESS CONSISTENT WITH YOUR OBJECTIVE FINDING? YES WHAT IS THE PERCENTAGE OF TEMPORARY IMPAIRMENT? TOTAL = 100% IS THE PATIENT WORKING? NO DOCTOR ON SITE: JOE VALENTINE MD PROCEDURE CODES FA211 ESTABILISHED PATIENT [facility] FACILITY CHARGE G8427 CURRENT MEDS W/DOSAGES DOCUMENTED G8730 PAIN ASSESS POS TOOL F/U PLAN DOC DISPOSITION & COMMUNICATION FOLLOW UP 2 MONTHS (REASON: W/C RIGHT KNEE & LOW BACK) ELECTRONICALLY SIGNED BY JOE VILLELA MD, MD ON 04/02/2019 AT 09:53 AM EDT DISCLAIMER : THIS IS A VISIT SUMMARY EXTRACTED FROM THE [employer] CHART. IT IS NOT A COPY OF THE [employer] PROGRESS NOTE. MTDD
== END ==
LOC: M PAIN 14:30
PROVIDERS: ATTEND Anesthesiology
DX: M25.561 Pain in right knee (principal); M79.2 Neuralgia and neuritis, unspecified; M54.5 Low back pain; G89.29 Other chronic pain; I10 Essential (primary) hypertension; E78.00 Pure hypercholesterolemia, unspecified; F41.9 Anxiety disorder, unspecified; F32.9 Major depressive disorder, single episode, unspecified; Z79.891 Long term (current) use of opiate analgesic; Z79.899 Other long term (current) drug therapy; Z88.0 Allergy status to penicillin; Z88.1 Allergy status to other antibiotic agents; Z88.2 Allergy status to sulfonamides; Z88.5 Allergy status to narcotic agent; Z88.6 Allergy status to analgesic agent; Z88.8 Allergy status to other drugs, medicaments and biological substances

== ENCOUNTER → 2019-06-07 | Outpatient (CLI) | payer OTHER ==
--- NOTE | 2019-06-09 00:15 | ECWPNPC ---
PATIENT NAME: NICOLE SALTER : 1965 GENDER: FEMALE VISIT DATE: 06/07/2019 DISCHARGE DATE: 06/07/19 1611 VISIT LOCKED DATE TIME: PHYSICIAN: DARIANA HILLIARD RESOURCE: DARIANA HILLIARD REASON FOR APPOINTMENT 1. W/C 2 MONTHS HISTORY OF PRESENT ILLNESS HISTORY OF PRESENT ILLNESS: PAIN THE PATIENT DESCRIBES THE PAIN... 53 YEAR OLD FEMALE IN FOR CHRONIC PAIN FOLLOW UP. SHE RATES HER PAIN AT A 7/10 CURRENTLY AND DESCRIBES IT ACHING, BURNING, TENDER, SHARP, AND STABBING. FALL RISK SCREENING: SCREENING :NO FALLS REPORTED IN THE LAST YEAR CURRENT MEDICATIONS TAKING LASIX 40 MG TABLET 1 TABLET ORALLY ONCE A DAY TAKING CARDIZEM 120 MG TABLET ORALLY ONCE DAILY TAKING VITAMIN E 400 UNIT TABLET 2 TABLETS ORALLY ONCE A DAY TAKING VITAMIN D (CHOLECALCIFEROL) 1000 UNIT TABLET 1 TABLET ORALLY ONCE A DAY TAKING BIOTIN 300 MCG TABLET 1 TABLET ORALLY ONCE A DAY TAKING LYRICA 300 MG CAPSULE 1 CAPSULE ORALLY FOR PAIN Q 8 HRS MDD=3 TAKING OXYMORPHONE HCL 10 MG TABLET 1 TAB ORALLY DAILY PRN FOR PAIN MDD1 TAKING OPANA ER 20 MG TABLET ER 12 HOUR ABUSE-DETERRENT 1 TABLET 1 HOUR BEFORE OR 2 HOURS AFTER EATING ORALLY EVERY 12 HRS MDD=2, NOTES: DUPLICATE TAKING OXYMORPHONE HCL ER 20 MG TABLET EXTENDED RELEASE 12 HOUR 1 TAB ORALLY FOR PAIN EVERY 12 HRS MDD2 NOT-TAKING GABAPENTIN 300 MG CAPSULE 1 CAPSULE ORALLY THREE TIMES DAILY NOT-TAKING OXYCODONE HCL 5 MG TABLET 1 TABLET NEEDED ORALLY EVERY 12 HRS MDD2 NOT-TAKING CIPRO HC 0.2-1 % SUSPENSION 3 DROPS INTO AFFECTED EAR OTIC TWICE A DAY NOT-TAKING PROTONIX 40 MG TABLET DELAYED RELEASE 1 TABLET ORALLY ONCE A DAY NOT-TAKING ACETAMINOPHEN 500 MG TABLET 1 TABLET NEEDED ORALLY EVERY 8 HRS NOT-TAKING DULOXETINE HCL 20 MG CAPSULE DELAYED RELEASE PARTICLES 1 CAPSULE ORALLY DAILY NOT-TAKING OXYMORPHONE HCL ER 30 MG TABLET EXTENDED RELEASE 12 HOUR 1 TABLET ORALLY EVERY 12 HRS CHRONIC PAIN MDD=2 NOT-TAKING OXYMORPHONE HCL ER 20 MG TABLET EXTENDED RELEASE 12 HOUR 1 TABLET 1 HOUR BEFORE OR 2 HOURS AFTER EATING ORALLY EVERY 12 HRS MDD=2 NOT-TAKING XANAX 0.5 MG TABLET 1 TABLET ORALLY TWICE A DAY NEEDED NOT-TAKING NORCO 10-325 MG TABLET 1 TABLET ORALLY Q 6-8 HRS PRN PAIN MDD=3 MEDICATION LIST REVIEWED AND RECONCILED WITH THE PATIENT PAST MEDICAL HISTORY GERD HTN HIGH CHOLESTEROL ANXIETY BRONCHIATUS DEPRESSION RSD SINUSITIS PHARYNGITIS BRONCHITIS ALLERGIES AMITRIPTYLINE HCL: RASH AND SWELLING - ALLERGY BACITRACIN: RASH - ALLERGY INDOCIN: SWELLING AND RASH - ALLERGY VOLTAREN: RASH - ALLERGY LIDOCAINE: RASH - ALLERGY MORPHINE SULFATE: SWELLING AND ITCHING - ALLERGY NAPROXEN: SWELLING - ALLERGY NEOMYCIN SULFATE: RASH - ALLERGY POLYMYXIN B-TRIMETHOPRIM: RASH - ALLERGY OMEPRAZOLE: ITCHING - ALLERGY DICLOFENAC: SWELLING AND RASH - ALLERGY CLARITHROMYCIN: RASH - ALLERGY DEXILANT: FACIAL SWELLING - ALLERGY CELEBREX: RASH AND CHEST PAIN - ALLERGY LATEX (FOR ALLERGY USE ONLY): RASH AND BLISTERS - ALLERGY DULOXETINE HCL: CHEST PAIN - ALLERGY AMINOGLYCOSIDES: RASH - ALLERGY PENICILLIN (FOR ALLERGIES USE ONLY): ANAPHYLAXIS - ALLERGY SULFA (FOR ALLERGY USE ONLY): CHEST PAIN AND RASH - ALLERGY NSAIDS AND IBUPROFEN: SWELLING, DISTRESS, AND DIARRHEA - ALLERGY SURGICAL HISTORY MULTIPLE KNEE RIGHT,HYSTERECTOMY,CHOLECYSTECTOMY,TONSILLECTOMY,MULT LAPAROSCOPIES,LEFT SHOULDER SKIN CA FAMILY HISTORY FATHER: , DIAGNOSED WITH DIABETES, CANCER MOTHER: , CANCER, HYPERTENSION SIBLINGS: CANCER FATHER FROM CANCERMOTHER AND SISTER FROM BREAST CANCER2 BROTHERS WITH HISTORY OF BLADDER CANCER. SOCIAL HISTORY GENERAL: TOBACCO USE ARE YOU A: NONSMOKER. DIET: REGULAR. LANGUAGE LANGUAGES SPOKEN:[place] DOMESTIC VIOLENCE DO YOU FEEL SAFE IN YOUR ENVIRONMENT?YES NEW PATIENT PAIN DIARY PATIENT DESCRIBES PAIN :ACHING, BURNING, HAVE IT ALL THE TIME, STABBING, TENDER, SORE FROM 0-10, WHAT LEVEL IS YOUR PAIN TODAY?7.5 7-8 RECREATIONAL DRUG USE DRUG USE?NO EXERCISE: DAILY LEG EXERCISES. LEARNING BARRIERS / SPECIAL NEEDS BARRIERS TO LEARNING?NO HEARING IMPAIRED?NO VISION IMPAIRED?YES :CORRECTIVE LENSES COGNITIVELY IMPAIRED?NO READINESS TO LEARN?YES PAIN CLINIC PFS, CLERGY, PUBLIC HEALTH REFERRALS PFS REFERRAL NEEDED?NO CLERGY REFERRAL NEEDED?NO PUBLIC HEALTH REFERRAL NEEDED?NO WAS THE PROVIDER NOTIFIED OF ANY PERTINENT INFO?NO N/A HAS THE PATIENT BEEN EDUCATED REGARDING HIS/HER PLAN OF CARE?YES HAS THE PATIENT BEEN EDUCATED REGARDING PAIN, THE RISK FOR PAIN, THE IMPORTANCE OF EFFECTIVE PAIN MANAGEMENT, AND THE PAIN ASSESSMENT PROCESS?YES LATEX QUESTIONNAIRE LATEX ALLERGY : HAVE YOU EVER DEVELOPED ANY TYPE OF REACTION AFTER HANDLING LATEX PRODUCTS SUCH RUBBER GLOVES, CONDOMS, DIAPHRAGMS, BALLOONS, SOCKS, OR UNDERWEAR?YES - PLEASE INDICATE :RUBBER GLOVES PT GETS RASH AND BLISTERS WHEN EXPOSED TO LATEX DATE ASKED : 02/07/2019 CAFFEINE CAFFEINE USE?YES HOW OFTEN AND HOW MUCH? 1 CUP COFFEE DAILY OF Q OTHER DAY PEPSI Q OTHER DAY ADVANCE DIRECTIVE ADVANCE DIRECTIVE DISCUSSED WITH PATIENT:YES PT DOES NOT HAVE HCP. INFORMATION PACKET GIVEN. ASSISTANCE DECLINED. DENOMINATIONAL [id number] WORSHIP ALCOHOL SCREENING DID YOU HAVE A DRINK CONTAINING ALCOHOL IN THE PAST YEAR?NO POINTS0 INTERPRETATIONNEGATIVE REVIEWED WITH PT 02/07/19 1544 BVREVIEWED WITH PT 03/24/19 1519 BVREVIEWED WITH PATEINT 06/07/19 NLJ. HOSPITALIZATION/MAJOR DIAGNOSTIC PROCEDURE SURGERIES REVIEW OF SYSTEMS REVIEWED BY: PROVIDER: ARMANDO GARDNER . CONSTITUTIONAL: ANY CHANGE IN YOUR MEDICAL CONDITION? NO . CHILLS NO . FEVER NO . INFECTION: DO YOU HAVE NEW INFECTIONS? NO . DO YOU HAVE HISTORY OF MRSA? NO . MUSCULOSKELETAL: ANY NEW PATTERNS OF PAIN OR NUMBNESS? YES- PAIN, NUMBNESS, AND TINGLING IN BILATERAL KNEES, CRISTINA IN RIGHT . GASTROENTEROLOGY: ANY NEW CHANGE IN BOWEL CONTROL? NO . GENITOURINARY: ANY NEW CHANGE IN BLADDER CONTROL? NO . IS THERE A CHANCE YOU COULD BE ? NO . HEMATOLOGY/LYMPH: DO YOU TAKE ANY BLOOD THINNERS? (FOR EXAMPLE- COUMADIN, PLAVIX, AGGRENOX, PLATEL, PRADAXA, OR XARELTO) NO . WHEN WAS YOUR LAST DOSE? DATE: TIME: . NEUROLOGY: HAVE YOU FALLEN IN THE PAST 12 MONTHS? NO . ANY NEW EXTREMITY NUMBNESS OR WEAKNESS? YES- INCREASED WEAKNESS IN BILATERAL LEGS/KNEES, THEY FEEL LIKE THEY ARE GETTING WEAKER AND IT'S HARDER TO WALK . CARDIOLOGY: DO YOU HAVE A PACEMAKER OR DEFIBRILLATOR? NO . RESPIRATORY: HAVE YOU BEEN SICK IN THE PAST WEEK? NO . FEVER NO . FLU LIKE SYMPTOMS? NO . COUGH NO . INTEGUMENTARY: DO YOU HAVE ANY RASHES OR OPEN SORES? NO . ALLERGIC/IMMUNO: ARE YOU ALLERGIC TO IV DYE? NO . ANY NEW ALLERGIES? NO . PSYCHIATRIC: DO YOU HAVE THOUGHTS OF HURTING YOURSELF OR SOMEONE ELSE? NO . ARE YOU ABUSED, NEGLECTED, OR IN AN UNSAFE ENVIRONMENT? NO . ENDOCRINOLOGY: ARE YOU DIABETIC? NO . OTHER: DO YOU NEED ANY PRESCRIPTIONS? YES- LYRCIA . IF YES, PLEASE LIST: ____NEEDS LYRCIA REFILLED . ANY NEW PROBLEMS WITH YOUR MEDICATIONS? NO . WHEN DID YOU LAST EAT? ____ . WHEN DID YOU LAST DRINK? ____ . WHAT DID YOU LAST DRINK? ____ . NAME OF PERSON DRIVING YOU HOME? ____ . DO YOU HAVE ANY OTHER QUESTIONS OR CONCERNS YES- FEEL LIKE MY LEGS ARE GETTING WEAKER IF I WALK FAR . VITAL SIGNS WT 210 LBS, HT 66 IN, BMI 33.89 INDEX, BP 122/72 MM HG, HR 70 /MIN, RR 16 /MIN, TEMP 96.4 F, OXYGEN SAT % 98%, NA INITIALS SC 15:22. EXAMINATION GENERAL EXAMINATION: GENERALNO ACUTE DISTRESS, WELL NOURISHED AND HYDRATED. PSYCHAPPROPRIATE MOOD AND AFFECT . LUNGS:CLEAR TO AUSCULTATION BILATERALLY, NO WHEEZES, RHONCHI, RALES. HEART:NO MURMURS, REGULAR RATE AND RHYTHM. ASSESSMENTS PAIN IN RIGHT KNEE - M25.561 (PRIMARY) BACK PAIN OF LUMBAR REGION WITH SCIATICA - M54.40 TREATMENT PAIN IN RIGHT KNEE REFILL LYRICA CAPSULE, 300 MG, 1 CAPSULE, ORALLY FOR PAIN, Q 8 HRS MDD=3, 30 DAY(S), 90, REFILLS 0 CLINICAL NOTES: 53 YEAR OLD FEMALE IN FOR WORKERS COMP CHRONIC PAIN FOLLOW UP. GIVEN PRESENTING SYMPTOMS AND RESULTS OF PHYSICAL EXAMINATION RECOMMENDED CONTINUATION OF CURRENT MEDICATION REGIMEN WITH FOLLOW UP IN 2 MONTHS. PATIENT WILL CHECK WITH HER PONY TRIMMER REGARDING DENIAL OF MRI AND CALL THE OFFICE SHOULD SHE NEED A NEW ORDER SENT. PATIENT HAS EXPRESSED UNDERSTANDING OF AND WAS IN AGREEMENT WITH TREATMENT PLAN. GIVEN TIME TO ASK QUESTIONS AND EXPRESS CONCERNS. , ISTOP REGISTRY REVIEWED AND DEMONSTRATES COMPLLIANCE. (REF # [id number] ) BRINGS IN MEDICATIONS WHICH IS APPROPRIATE FOR WHAT WAS DISPENSED. RECENT URINE TOXICOLOGY REVIEWED. NO UNAUTHORIZED MEDICATIONS. NO ILLICIT SUBSTANCES AND PRESCRIBED MEDICATIONS WERE PRESENT. OTHERS CONTINUE OXYMORPHONE HCL TABLET, 10 MG, 1 TAB, ORALLY, DAILY PRN FOR PAIN MDD1 CONTINUE OXYMORPHONE HCL ER TABLET EXTENDED RELEASE 12 HOUR, 20 MG, 1 TAB, ORALLY FOR PAIN, EVERY 12 HRS MDD2 PROCEDURES PN WORKMANS' COMP OPINION IN YOUR OPINION, WAS THE INCIDENT THAT THE PATIENT DESCRIBED THE COMPETENT MEDICAL CAUSE OF THIS INJURY/ILLNESS? YES ARE THE PATIENT'S COMPLAINTS CONSISTENT WITH HIS/HER HISTORY OF THE INJURY/ILLNESS? YES IS THE PATIENT'S HISTORY OF THE INJURY/ILLNESS CONSISTENT WITH YOUR OBJECTIVE FINDING? YES WHAT IS THE PERCENTAGE OF TEMPORARY IMPAIRMENT? TOTAL = 100% IS THE PATIENT WORKING? NO DOCTOR ON SITE: JOE VALENTINE MD DISPOSITION & COMMUNICATION FOLLOW UP 2 MONTHS (REASON: W/C) ELECTRONICALLY SIGNED BY MITZY BRONSON ON 06/08/2019 AT 02:29 PM EDT DISCLAIMER : THIS IS A VISIT SUMMARY EXTRACTED FROM THE [employer] CHART. IT IS NOT A COPY OF THE [employer] PROGRESS NOTE. RADHA
== END ==
LOC: M PAIN 15:15
PROVIDERS: ATTEND Family Medicine
DX: M25.561 Pain in right knee (principal); M54.40 Lumbago with sciatica, unspecified side; K21.9 Gastro-esophageal reflux disease without esophagitis; I10 Essential (primary) hypertension; E78.00 Pure hypercholesterolemia, unspecified; F41.9 Anxiety disorder, unspecified; F32.9 Major depressive disorder, single episode, unspecified; Z79.899 Other long term (current) drug therapy; Z79.891 Long term (current) use of opiate analgesic; Z88.0 Allergy status to penicillin; Z88.1 Allergy status to other antibiotic agents; Z88.2 Allergy status to sulfonamides; Z88.5 Allergy status to narcotic agent; Z88.6 Allergy status to analgesic agent; Z88.8 Allergy status to other drugs, medicaments and biological substances; Z91.048 Other nonmedicinal substance allergy status

== ENCOUNTER → 2019-10-18 | Outpatient (CLI) | payer OTHER ==
--- NOTE | 2019-10-20 03:41 | ECWPNPC ---
PATIENT NAME: NICOLE SALTER : 1965 GENDER: FEMALE VISIT DATE: 10/18/2019 DISCHARGE DATE: 10/18/19 1407 VISIT LOCKED DATE TIME: PHYSICIAN: DARIANA HILLIARD RESOURCE: DARIANA HILLIARD REASON FOR APPOINTMENT 1. W/C 2 MONTHS - DISCUSS MEDICATION DENIAL HISTORY OF PRESENT ILLNESS HISTORY OF PRESENT ILLNESS: PAIN THE PATIENT DESCRIBES THE PAIN... 54-YEAR-OLD FEMALE IN FOR CHRONIC PAIN FOLLOW-UP. SHE RATES HER PAIN CURRENTLY AT AN 8 OUT OF 10 AND DESCRIBES IT ACHING, BURNING, STABBING, SORE, AND TENDER. SHE DOES ADMIT TO AN UPCOMING KNEE SURGERY. SHE DOES NOT FEEL LIKE HER MEDICATIONS ARE MANAGING HER PAIN AND WOULD LIKE TO DISCUSS A CHANGE IN MEDICATION 53 YEAR OLD FEMALE PATIENT WITH A HISTORY OF CHRONIC LOW BACK AND RIGHT KNEE PAIN. THE PATIENT WAS HURT IN A WORK RELATED INJURY ON 12/13/[address] AT 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 THE PATIENT SAYS THE PAIN IN HER RIGHT KNEE RADIATES UP INTO HER THIGH AREA. THE PATIENT REPORTS HAVING 3 SURGERIES OVER HER RIGHT KNEE, BUT HER PAIN PERSISTS. THE PATIENT SAYS THAT SHE HAS DIFFICULTY BENDING OVER DUE TO THIS PAIN. WE DISCONTINUED THE PATIENT'S GABAPENTIN AT THE PREVIOUS VISIT BECAUSE THE PATIENT SAID IT HAS NOT BEEN HELPING. THE PATIENT IS CURRENTLY USING OXYMORPHONE AND LYRICA TO AID IN PAIN RELIEF. THE PATIENT IS INTERESTED IN A DCS TRIAL, SO SHE NEEDS A NEW THORACIC AND LUMBAR MRI AND A PSYCHOLOGICAL EVALUATION TO PROCEED, BUT THEY WERE BOTH DENIED. THE PATIENT ALSO SAYS SHE WOULD LIKE TO CONTINUE WITH PHYSICAL THERAPY, BUT THAT WAS DENIED WELL. PATIENT DENIES UNEXPLAINABLE WEIGHT LOSS, FEVER, CHILLS, NEW CHANGES ON HER URINARY OR BOWEL CONTROL. FALL RISK SCREENING: SCREENING :NO FALLS REPORTED IN THE LAST YEAR CURRENT MEDICATIONS TAKING LASIX 40 MG TABLET 1 TABLET ORALLY ONCE A DAY TAKING CARDIZEM 120 MG TABLET ORALLY ONCE DAILY TAKING VITAMIN E 400 UNIT TABLET 2 TABLETS ORALLY ONCE A DAY TAKING VITAMIN D (CHOLECALCIFEROL) 1000 UNIT TABLET 1 TABLET ORALLY ONCE A DAY TAKING BIOTIN 300 MCG TABLET 1 TABLET ORALLY ONCE A DAY TAKING OXYMORPHONE HCL 10 MG TABLET 1 TAB ORALLY DAILY PRN FOR PAIN MDD1 TAKING OXYMORPHONE HCL ER 20 MG TABLET EXTENDED RELEASE 12 HOUR 1 TAB ORALLY FOR PAIN EVERY 12 HRS MDD2 TAKING LYRICA 300 MG CAPSULE 1 CAPSULE ORALLY FOR PAIN Q 8 HRS MDD=3 NOT-TAKING GABAPENTIN 300 MG CAPSULE 1 CAPSULE ORALLY THREE TIMES DAILY NOT-TAKING OXYCODONE HCL 5 MG TABLET 1 TABLET NEEDED ORALLY EVERY 12 HRS MDD2 NOT-TAKING CIPRO HC 0.2-1 % SUSPENSION 3 DROPS INTO AFFECTED EAR OTIC TWICE A DAY NOT-TAKING PROTONIX 40 MG TABLET DELAYED RELEASE 1 TABLET ORALLY ONCE A DAY NOT-TAKING ACETAMINOPHEN 500 MG TABLET 1 TABLET NEEDED ORALLY EVERY 8 HRS NOT-TAKING DULOXETINE HCL 20 MG CAPSULE DELAYED RELEASE PARTICLES 1 CAPSULE ORALLY DAILY NOT-TAKING OXYMORPHONE HCL ER 30 MG TABLET EXTENDED RELEASE 12 HOUR 1 TABLET ORALLY EVERY 12 HRS CHRONIC PAIN MDD=2 NOT-TAKING OXYMORPHONE HCL ER 20 MG TABLET EXTENDED RELEASE 12 HOUR 1 TABLET 1 HOUR BEFORE OR 2 HOURS AFTER EATING ORALLY EVERY 12 HRS MDD=2 NOT-TAKING XANAX 0.5 MG TABLET 1 TABLET ORALLY TWICE A DAY NEEDED NOT-TAKING NORCO 10-325 MG TABLET 1 TABLET ORALLY Q 6-8 HRS PRN PAIN MDD=3 MEDICATION LIST REVIEWED AND RECONCILED WITH THE PATIENT PAST MEDICAL HISTORY HTN GERD HIGH CHOLESTEROL ANXIETY BRONCHIATUS DEPRESSION RSD SINUSITIS PHARYNGITIS BRONCHITIS RIGHT KNEE PAIN LEFT KNEE PAIN ALLERGIES AMITRIPTYLINE HCL: RASH AND SWELLING - ALLERGY BACITRACIN: RASH - ALLERGY INDOCIN: SWELLING AND RASH - ALLERGY VOLTAREN: RASH - ALLERGY LIDOCAINE: RASH - ALLERGY MORPHINE SULFATE: SWELLING AND ITCHING - ALLERGY NAPROXEN: SWELLING - ALLERGY NEOMYCIN SULFATE: RASH - ALLERGY POLYMYXIN B-TRIMETHOPRIM: RASH - ALLERGY OMEPRAZOLE: ITCHING - ALLERGY DICLOFENAC: SWELLING AND RASH - ALLERGY CLARITHROMYCIN: RASH - ALLERGY DEXILANT: FACIAL SWELLING - ALLERGY CELEBREX: RASH AND CHEST PAIN - ALLERGY LATEX (FOR ALLERGY USE ONLY): RASH AND BLISTERS - ALLERGY DULOXETINE HCL: CHEST PAIN - ALLERGY AMINOGLYCOSIDES: RASH - ALLERGY PENICILLIN (FOR ALLERGIES USE ONLY): ANAPHYLAXIS - ALLERGY SULFA (FOR ALLERGY USE ONLY): CHEST PAIN AND RASH - ALLERGY NSAIDS AND IBUPROFEN: SWELLING, DISTRESS, AND DIARRHEA - ALLERGY SURGICAL HISTORY MULTIPLE KNEE RIGHT,HYSTERECTOMY,CHOLECYSTECTOMY,TONSILLECTOMY,MULT LAPAROSCOPIES,LEFT SHOULDER SKIN CA FAMILY HISTORY FATHER: , DIAGNOSED WITH OTHER MALIGNANT NEOPLASM OF UNSPECIFIED SITE, DIABETES MOTHER: , HYPERTENSION, OTHER MALIGNANT NEOPLASM OF UNSPECIFIED SITE SIBLINGS: OTHER MALIGNANT NEOPLASM OF UNSPECIFIED SITE FATHER FROM CANCERMOTHER AND SISTER FROM BREAST CANCER2 BROTHERS WITH HISTORY OF BLADDER CANCER. SOCIAL HISTORY GENERAL: TOBACCO USE ARE YOU A: NONSMOKER. DIET: REGULAR. LANGUAGE LANGUAGES SPOKEN:UKRAINIAN DOMESTIC VIOLENCE DO YOU FEEL SAFE IN YOUR ENVIRONMENT?YES NEW PATIENT PAIN DIARY PATIENT DESCRIBES PAIN :ACHING, BURNING, HAVE IT ALL THE TIME, STABBING, TENDER, SORE FROM 0-10, WHAT LEVEL IS YOUR PAIN TODAY?7.5 7-8 RECREATIONAL DRUG USE DRUG USE?NO EXERCISE: DAILY LEG EXERCISES. LEARNING BARRIERS / SPECIAL NEEDS BARRIERS TO LEARNING?NO HEARING IMPAIRED?NO VISION IMPAIRED?YES COGNITIVELY IMPAIRED?NO :CORRECTIVE LENSES READINESS TO LEARN?YES PAIN CLINIC PFS, CLERGY, PUBLIC HEALTH REFERRALS PFS REFERRAL NEEDED?NO CLERGY REFERRAL NEEDED?NO PUBLIC HEALTH REFERRAL NEEDED?NO WAS THE PROVIDER NOTIFIED OF ANY PERTINENT INFO?NO N/A HAS THE PATIENT BEEN EDUCATED REGARDING HIS/HER PLAN OF CARE?YES HAS THE PATIENT BEEN EDUCATED REGARDING PAIN, THE RISK FOR PAIN, THE IMPORTANCE OF EFFECTIVE PAIN MANAGEMENT, AND THE PAIN ASSESSMENT PROCESS?YES LATEX QUESTIONNAIRE LATEX ALLERGY : HAVE YOU EVER DEVELOPED ANY TYPE OF REACTION AFTER HANDLING LATEX PRODUCTS SUCH RUBBER GLOVES, CONDOMS, DIAPHRAGMS, BALLOONS, SOCKS, OR UNDERWEAR?YES - PLEASE INDICATE :RUBBER GLOVES PT GETS RASH AND BLISTERS WHEN EXPOSED TO LATEX DATE ASKED : 02/07/2019 CAFFEINE CAFFEINE USE?YES HOW OFTEN AND HOW MUCH? 1 CUP COFFEE DAILY OF Q OTHER DAY PEPSI Q OTHER DAY ADVANCE DIRECTIVE ADVANCE DIRECTIVE DISCUSSED WITH PATIENT:YES PT DOES NOT HAVE HCP. INFORMATION PACKET GIVEN. ASSISTANCE DECLINED. SHINTO [id number] SHINTO ALCOHOL SCREENING DID YOU HAVE A DRINK CONTAINING ALCOHOL IN THE PAST YEAR?NO POINTS0 INTERPRETATIONNEGATIVE REVIEWED WITH PT 02/07/19 1544 BVREVIEWED WITH PT 03/24/19 1519 BVREVIEWED WITH PATEINT 06/07/19 NLJREVIEWED WITH PATIENT 10/18/19 1301 NLJ. HOSPITALIZATION/MAJOR DIAGNOSTIC PROCEDURE SURGERIES REVIEW OF SYSTEMS REVIEWED BY: PROVIDER: ARMANDO GARDNER . CONSTITUTIONAL: ANY CHANGE IN YOUR MEDICAL CONDITION? YES- SCHEDULED FOR LEFT KNEE SURGERY ON 10/25/19 TO REPAIR MENISCUS . CHILLS NO . FEVER NO . INFECTION: DO YOU HAVE NEW INFECTIONS? YES- STATES SHE HAD THE FLU ABOUT 2 WEEKS AGO, VOMITING AND DIARRHEA, STATES SHE HAS NO SYMPTOMS CURRENTLY, STATES THAT SHE RECEIVED NO MEDICAL CARE . DO YOU HAVE HISTORY OF MRSA? NO . MUSCULOSKELETAL: ANY NEW PATTERNS OF PAIN OR NUMBNESS? YES- STATES WHEN SHE GETS UP AFTER RESTING OR IN THE AM BOTH BLE ARE "STIFF", STATES GOING OUT IN THE COLD AIR SHE STATES BILATERAL KNEES AND BACK PAIN INCREASES . GASTROENTEROLOGY: ANY NEW CHANGE IN BOWEL CONTROL? NO . GENITOURINARY: ANY NEW CHANGE IN BLADDER CONTROL? NO . IS THERE A CHANCE YOU COULD BE ? NO . HEMATOLOGY/LYMPH: DO YOU TAKE ANY BLOOD THINNERS? (FOR EXAMPLE- COUMADIN, PLAVIX, AGGRENOX, PLATEL, PRADAXA, OR XARELTO) NO . WHEN WAS YOUR LAST DOSE? DATE: TIME: . NEUROLOGY: HAVE YOU FALLEN IN THE PAST 12 MONTHS? NO . ANY NEW EXTREMITY NUMBNESS OR WEAKNESS? YES- STATES IF SHE STANDS TOO LONG HER THIGH AREA OF BILATERAL LEG "FEEL WEAK, AND STIFFNESS". . CARDIOLOGY: DO YOU HAVE A PACEMAKER OR DEFIBRILLATOR? NO . RESPIRATORY: HAVE YOU BEEN SICK IN THE PAST WEEK? NO . FEVER NO . FLU LIKE SYMPTOMS? NO . COUGH NO . INTEGUMENTARY: DO YOU HAVE ANY RASHES OR OPEN SORES? NO . ALLERGIC/IMMUNO: ARE YOU ALLERGIC TO IV DYE? NO . ANY NEW ALLERGIES? NO . PSYCHIATRIC: DO YOU HAVE THOUGHTS OF HURTING YOURSELF OR SOMEONE ELSE? NO . ARE YOU ABUSED, NEGLECTED, OR IN AN UNSAFE ENVIRONMENT? NO . ENDOCRINOLOGY: ARE YOU DIABETIC? NO . OTHER: DO YOU NEED ANY PRESCRIPTIONS? YES- LYRICA, OXYMORPHONE BOTH ER AND REGULAR OXYMORPHONE . IF YES, PLEASE LIST: LYRICA, OXYMORPHONE . ANY NEW PROBLEMS WITH YOUR MEDICATIONS? YES- WOULD LIKE TO KNOW IF SHE CAN GET 20MG TABS INCREASED TO A HIGHER MG DOSE . WHEN DID YOU LAST EAT? ____ . WHEN DID YOU LAST DRINK? ____ . WHAT DID YOU LAST DRINK? ____ . NAME OF PERSON DRIVING YOU HOME? ____ . DO YOU HAVE ANY OTHER QUESTIONS OR CONCERNS YES- "I CAN'T TOLERATE PAIN NOW AND WITH SURGERY IT WILL BE THROUGH THE ROOF", " I AM SCHEDULED FOR KNEE SURGERY 10/25/19. 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 . VITAL SIGNS WT 201.2 LBS, HT 66 IN, BMI 32.47 INDEX, BP 149/84 MM HG, HR 85 /MIN, RR 16 /MIN, TEMP 96.8 F, OXYGEN SAT % 98%, SAFE IN ENV? (Y/N) YES, NA INITIALS AW 1259, REVIEWED BY: DELORES. EXAMINATION GENERAL EXAMINATION: GENERALNO ACUTE DISTRESS, WELL NOURISHED AND HYDRATED. PSYCHAPPROPRIATE MOOD AND AFFECT . LUNGS:CLEAR TO AUSCULTATION BILATERALLY, NO WHEEZES, RHONCHI, RALES. HEART:NO MURMURS, REGULAR RATE AND RHYTHM. ASSESSMENTS RIGHT KNEE PAIN - M25.561 (PRIMARY) TREATMENT RIGHT KNEE PAIN STOP OXYMORPHONE HCL TABLET, 10 MG, 1 TAB, ORALLY, DAILY PRN FOR PAIN MDD1 STOP OXYMORPHONE HCL ER TABLET EXTENDED RELEASE 12 HOUR, 20 MG, 1 TAB, ORALLY FOR PAIN, EVERY 12 HRS MDD2 START MORPHINE SULFATE TABLET, 30 MG, 1-2 TABLET NEEDED, ORALLY, DAILY, 30 DAYS, 60 START MORPHINE SULFATE ER TABLET EXTENDED RELEASE, 30 MG, 1 TABLET, ORALLY, EVERY 12 HRS, 30 DAYS, 60 TABLET CLINICAL NOTES: 54-YEAR-OLD FEMALE IN FOR CHRONIC PAIN FOLLOW-UP. GIVEN PRESENTING SYMPTOMS, RESULTS PHYSICAL EXAMINATION, AND CONSULTATION WITH DR. VILLELA RECOMMENDED DISCONTINUING OXYMORPHONE AND STARTING MORPHINE 30 MG ER TWICE A DAY, MORPHINE 30 MG IR 1-2 TABLETS DAILY NEEDED. PATIENT HAS EXPRESSED UNDERSTANDING OF AND WAS IN AGREEMENT WITH TREATMENT PLAN. GIVEN TIME TO ASK QUESTIONS AND EXPRESS CONCERNS., ISTOP REGISTRY REVIEWED AND DEMONSTRATES COMPLLIANCE. (REF # [id number] ) BRINGS IN MEDICATIONS WHICH IS APPROPRIATE FOR WHAT WAS DISPENSED. RECENT URINE TOXICOLOGY REVIEWED. NO UNAUTHORIZED MEDICATIONS. NO ILLICIT SUBSTANCES AND PRESCRIBED MEDICATIONS WERE PRESENT. PROCEDURES PN WORKMANS' COMP OPINION IN YOUR OPINION, WAS THE INCIDENT THAT THE PATIENT DESCRIBED THE COMPETENT MEDICAL CAUSE OF THIS INJURY/ILLNESS? YES ARE THE PATIENT'S COMPLAINTS CONSISTENT WITH HIS/HER HISTORY OF THE INJURY/ILLNESS? YES IS THE PATIENT'S HISTORY OF THE INJURY/ILLNESS CONSISTENT WITH YOUR OBJECTIVE FINDING? YES WHAT IS THE PERCENTAGE OF TEMPORARY IMPAIRMENT? TOTAL = 100% IS THE PATIENT WORKING? NO DOCTOR ON SITE: JOE VALENTINE MD PROCEDURE CODES FA211 ESTABILISHED PATIENT [facility] FACILITY CHARGE DISPOSITION & COMMUNICATION FOLLOW UP 2 MONTHS (REASON: RIGHT KNEE PAIN, NEW MEDICATION) ELECTRONICALLY SIGNED BY MITZY BRONSON ON 10/19/2019 AT 10:24 AM EST DISCLAIMER : THIS IS A VISIT SUMMARY EXTRACTED FROM THE [employer] CHART. IT IS NOT A COPY OF THE [employer] PROGRESS NOTE. RADHA
== END ==
LOC: M PAIN 13:00
PROVIDERS: ATTEND Family Medicine
DX: M25.561 Pain in right knee (principal); G89.29 Other chronic pain; I10 Essential (primary) hypertension; Z86.59 Personal history of other mental and behavioral disorders; Z88.0 Allergy status to penicillin; Z88.1 Allergy status to other antibiotic agents; Z88.2 Allergy status to sulfonamides; Z88.5 Allergy status to narcotic agent; Z88.6 Allergy status to analgesic agent; Z88.8 Allergy status to other drugs, medicaments and biological substances; Z91.040 Latex allergy status; Z79.891 Long term (current) use of opiate analgesic; Z79.899 Other long term (current) drug therapy

== ENCOUNTER → 2020-02-22 | Outpatient (CLI) | payer OTHER ==
--- NOTE | 2020-02-27 04:56 | ECWPNPC ---
PATIENT NAME: NICOLE SALTER : 1965 GENDER: FEMALE VISIT DATE: 02/22/2020 DISCHARGE DATE: 02/22/20 1401 VISIT LOCKED DATE TIME: PHYSICIAN: DARIANA HILLIARD RESOURCE: DARIANA HILLIARD REASON FOR APPOINTMENT 1. W/C, RIGHT KNEE PAIN, NEW MEDICATION HISTORY OF PRESENT ILLNESS HISTORY OF PRESENT ILLNESS: PAIN THE PATIENT DESCRIBES THE PAIN... PERMISSION REQUESTED AND RECEIVED FROM PATIENT TO PERFORM TELEPHONE VISIT. 54-YEAR-OLD FEMALE IN FOR WORKER'S COMP. CHRONIC PAIN FOLLOW-UP. 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 WITH REGARDS TO DECREASING PATIENT'S CURRENT MEDICATIONS WHICH WILL BE DISCUSSED WITH PATIENT TODAY. SHE RATES HER PAIN CURRENTLY AT AN 8 OUT OF 10. FALL RISK SCREENING: SCREENING :NO FALLS REPORTED IN THE LAST YEAR CURRENT MEDICATIONS TAKING LASIX 40 MG TABLET 1 TABLET ORALLY ONCE A DAY TAKING CARDIZEM 120 MG TABLET ORALLY ONCE DAILY TAKING VITAMIN E 400 UNIT TABLET 2 TABLETS ORALLY ONCE A DAY TAKING VITAMIN D (CHOLECALCIFEROL) 1000 UNIT TABLET 1 TABLET ORALLY ONCE A DAY TAKING BIOTIN 300 MCG TABLET 1 TABLET ORALLY ONCE A DAY TAKING MORPHINE SULFATE 30 MG TABLET 1-2 TABLET NEEDED ORALLY DAILY TAKING MORPHINE SULFATE ER 30 MG TABLET EXTENDED RELEASE 1 TABLET ORALLY EVERY 12 HRS TAKING LYRICA 300 MG CAPSULE 1 CAPSULE ORALLY FOR PAIN Q 8 HRS MDD=3 NOT-TAKING GABAPENTIN 300 MG CAPSULE 1 CAPSULE ORALLY THREE TIMES DAILY NOT-TAKING OXYCODONE HCL 5 MG TABLET 1 TABLET NEEDED ORALLY EVERY 12 HRS MDD2 NOT-TAKING CIPRO HC 0.2-1 % SUSPENSION 3 DROPS INTO AFFECTED EAR OTIC TWICE A DAY NOT-TAKING PROTONIX 40 MG TABLET DELAYED RELEASE 1 TABLET ORALLY ONCE A DAY NOT-TAKING ACETAMINOPHEN 500 MG TABLET 1 TABLET NEEDED ORALLY EVERY 8 HRS NOT-TAKING DULOXETINE HCL 20 MG CAPSULE DELAYED RELEASE PARTICLES 1 CAPSULE ORALLY DAILY NOT-TAKING OXYMORPHONE HCL ER 30 MG TABLET EXTENDED RELEASE 12 HOUR 1 TABLET ORALLY EVERY 12 HRS CHRONIC PAIN MDD=2 NOT-TAKING OXYMORPHONE HCL ER 20 MG TABLET EXTENDED RELEASE 12 HOUR 1 TABLET 1 HOUR BEFORE OR 2 HOURS AFTER EATING ORALLY EVERY 12 HRS MDD=2 NOT-TAKING XANAX 0.5 MG TABLET 1 TABLET ORALLY TWICE A DAY NEEDED NOT-TAKING NORCO 10-325 MG TABLET 1 TABLET ORALLY Q 6-8 HRS PRN PAIN MDD=3 MEDICATION LIST REVIEWED AND RECONCILED WITH THE PATIENT PAST MEDICAL HISTORY HTN GERD HIGH CHOLESTEROL ANXIETY BRONCHIATUS DEPRESSION RSD SINUSITIS PHARYNGITIS BRONCHITIS RIGHT KNEE PAIN LEFT KNEE PAIN ALLERGIES AMITRIPTYLINE HCL: RASH AND SWELLING - ALLERGY BACITRACIN: RASH - ALLERGY INDOCIN: SWELLING AND RASH - ALLERGY VOLTAREN: RASH - ALLERGY LIDOCAINE: RASH - ALLERGY MORPHINE SULFATE: SWELLING AND ITCHING - ALLERGY NAPROXEN: SWELLING - ALLERGY NEOMYCIN SULFATE: RASH - ALLERGY POLYMYXIN B-TRIMETHOPRIM: RASH - ALLERGY OMEPRAZOLE: ITCHING - ALLERGY DICLOFENAC: SWELLING AND RASH - ALLERGY CLARITHROMYCIN: RASH - ALLERGY DEXILANT: FACIAL SWELLING - ALLERGY CELEBREX: RASH AND CHEST PAIN - ALLERGY LATEX (FOR ALLERGY USE ONLY): RASH AND BLISTERS - ALLERGY DULOXETINE HCL: CHEST PAIN - ALLERGY AMINOGLYCOSIDES: RASH - ALLERGY PENICILLIN (FOR ALLERGIES USE ONLY): ANAPHYLAXIS - ALLERGY SULFA (FOR ALLERGY USE ONLY): CHEST PAIN AND RASH - ALLERGY NSAIDS AND IBUPROFEN: SWELLING, DISTRESS, AND DIARRHEA - ALLERGY SURGICAL HISTORY MULTIPLE KNEE RIGHT,HYSTERECTOMY,CHOLECYSTECTOMY,TONSILLECTOMY,MULT LAPAROSCOPIES,LEFT SHOULDER SKIN CA LEFT KNEE REPAIR 12/2019 FAMILY HISTORY FATHER: , DIAGNOSED WITH DIABETES, OTHER MALIGNANT NEOPLASM OF UNSPECIFIED SITE MOTHER: , HYPERTENSION, OTHER MALIGNANT NEOPLASM OF UNSPECIFIED SITE SIBLINGS: OTHER MALIGNANT NEOPLASM OF UNSPECIFIED SITE FATHER FROM CANCERMOTHER AND SISTER FROM BREAST CANCER2 BROTHERS WITH HISTORY OF BLADDER CANCER. SOCIAL HISTORY GENERAL: TOBACCO USE ARE YOU A: NONSMOKER. LATEX QUESTIONNAIRE LATEX ALLERGY : HAVE YOU EVER DEVELOPED ANY TYPE OF REACTION AFTER HANDLING LATEX PRODUCTS SUCH RUBBER GLOVES, CONDOMS, DIAPHRAGMS, BALLOONS, SOCKS, OR UNDERWEAR?YES - PLEASE INDICATE :RUBBER GLOVES PT GETS RASH AND BLISTERS WHEN EXPOSED TO LATEX DATE ASKED : 02/07/2019 ALCOHOL SCREENING DID YOU HAVE A DRINK CONTAINING ALCOHOL IN THE PAST YEAR?NO POINTS0 INTERPRETATIONNEGATIVE RECREATIONAL DRUG USE DRUG USE?NO CAFFEINE CAFFEINE USE?YES HOW OFTEN AND HOW MUCH? 1 CUP COFFEE DAILY OF Q OTHER DAY PEPSI Q OTHER DAY SCIENTOLOGY [id number] ORTHODOXY LANGUAGE LANGUAGES SPOKEN:UPPER SORBIAN LEARNING BARRIERS / SPECIAL NEEDS BARRIERS TO LEARNING?NO HEARING IMPAIRED?NO VISION IMPAIRED?YES COGNITIVELY IMPAIRED?NO :CORRECTIVE LENSES READINESS TO LEARN?YES DOMESTIC VIOLENCE DO YOU FEEL SAFE IN YOUR ENVIRONMENT?YES DIET: REGULAR. EXERCISE: DAILY LEG EXERCISES. NEW PATIENT PAIN DIARY PATIENT DESCRIBES PAIN :ACHING, BURNING, HAVE IT ALL THE TIME, STABBING, TENDER, SORE FROM 0-10, WHAT LEVEL IS YOUR PAIN TODAY?8 PRECIPITATING FACTORS WALKING,ACTIVITY, BENDING ALLEVIATING FACTORS HEAT IMPACT ON FUNCTION YES PAIN CLINIC PFS, CLERGY, PUBLIC HEALTH REFERRALS PFS REFERRAL NEEDED?NO CLERGY REFERRAL NEEDED?NO PUBLIC HEALTH REFERRAL NEEDED?NO WAS THE PROVIDER NOTIFIED OF ANY PERTINENT INFO?NO N/A HAS THE PATIENT BEEN EDUCATED REGARDING HIS/HER PLAN OF CARE?YES HAS THE PATIENT BEEN EDUCATED REGARDING PAIN, THE RISK FOR PAIN, THE IMPORTANCE OF EFFECTIVE PAIN MANAGEMENT, AND THE PAIN ASSESSMENT PROCESS?YES ADVANCE DIRECTIVE ADVANCE DIRECTIVE DISCUSSED WITH PATIENT:YES PT DOES NOT HAVE HCP. INFORMATION PACKET GIVEN. ASSISTANCE DECLINED. REVIEWED WITH PT 02/07/19 1544 BVREVIEWED WITH PT 03/24/19 1519 BVREVIEWED WITH PATEINT 06/07/19 NLJREVIEWED WITH PATIENT 10/18/19 1301 NLJ. HOSPITALIZATION/MAJOR DIAGNOSTIC PROCEDURE SURGERIES REVIEW OF SYSTEMS REVIEWED BY: PROVIDER: ARMANDO GARDNER . CONSTITUTIONAL: ANY CHANGE IN YOUR MEDICAL CONDITION? NO . CHILLS NO . FEVER NO . INFECTION: DO YOU HAVE NEW INFECTIONS? NO . DO YOU HAVE HISTORY OF MRSA? NO . MUSCULOSKELETAL: ANY NEW PATTERNS OF PAIN OR NUMBNESS? YES, PAIN IS WORSE . GASTROENTEROLOGY: ANY NEW CHANGE IN BOWEL CONTROL? NO . GENITOURINARY: ANY NEW CHANGE IN BLADDER CONTROL? NO . IS THERE A CHANCE YOU COULD BE ? NO . HEMATOLOGY/LYMPH: DO YOU TAKE ANY BLOOD THINNERS? (FOR EXAMPLE- COUMADIN, PLAVIX, AGGRENOX, PLATEL, PRADAXA, OR XARELTO) NO . WHEN WAS YOUR LAST DOSE? DATE: TIME: . NEUROLOGY: HAVE YOU FALLEN IN THE PAST 12 MONTHS? NO . ANY NEW EXTREMITY NUMBNESS OR WEAKNESS? NO . CARDIOLOGY: DO YOU HAVE A PACEMAKER OR DEFIBRILLATOR? NO . RESPIRATORY: HAVE YOU BEEN SICK IN THE PAST WEEK? NO . FEVER NO . FLU LIKE SYMPTOMS? NO . COUGH NO . INTEGUMENTARY: DO YOU HAVE ANY RASHES OR OPEN SORES? NO . ALLERGIC/IMMUNO: ARE YOU ALLERGIC TO IV DYE? NOT SURE . ANY NEW ALLERGIES? NO . PSYCHIATRIC: DO YOU HAVE THOUGHTS OF HURTING YOURSELF OR SOMEONE ELSE? NO . ARE YOU ABUSED, NEGLECTED, OR IN AN UNSAFE ENVIRONMENT? NO . ENDOCRINOLOGY: ARE YOU DIABETIC? NO . OTHER: DO YOU NEED ANY PRESCRIPTIONS? NO . IF YES, PLEASE LIST: ____ . ANY NEW PROBLEMS WITH YOUR MEDICATIONS? NO . WHEN DID YOU LAST EAT? ____ . WHEN DID YOU LAST DRINK? ____ . WHAT DID YOU LAST DRINK? ____ . NAME OF PERSON DRIVING YOU HOME? ____ . DO YOU HAVE ANY OTHER QUESTIONS OR CONCERNS NO . EXAMINATION GENERAL EXAMINATION: PSYCHAPPROPRIATE MOOD AND AFFECT , ORIENTED X 3 . ASSESSMENTS RIGHT KNEE PAIN - M25.561 (PRIMARY) TREATMENT RIGHT KNEE PAIN REFILL LYRICA CAPSULE, 200 MG, 1 CAPSULE, ORALLY, Q 8 HRS MDD=3, 30 DAYS, 90 CLINICAL NOTES: 54-YEAR-OLD FEMALE IN FOR WORKER'S COMP. CHRONIC PAIN FOLLOW-UP. GIVEN PRESENTING SYMPTOMS RECOMMEND DECREASING LYRICA TO 200 MG 3 TIMES A DAY WITH FOLLOW-UP IN ONE MONTH TO DETERMINE EFFICACY OF TREATMENT. PATIENT HAS EXPRESSED UNDERSTANDING OF AND WAS IN AGREEMENT WITH TREATMENT PLAN. GIVEN TIME TO ASK QUESTIONS AND EXPRESS CONCERNS., ISTOP REGISTRY REVIEWED AND DEMONSTRATES COMPLLIANCE. (REF # [id number] ) BRINGS IN MEDICATIONS WHICH IS APPROPRIATE FOR WHAT WAS DISPENSED. RECENT URINE TOXICOLOGY REVIEWED. NO UNAUTHORIZED MEDICATIONS. NO ILLICIT SUBSTANCES AND PRESCRIBED MEDICATIONS WERE PRESENT. VISIT TO BE BILLED BASED ON TIME SPENT WITH PATIENT. TIME SPENT WITH PATIENT 11 MINUTES. PROCEDURES PN WORKMANS' COMP OPINION IN YOUR OPINION, WAS THE INCIDENT THAT THE PATIENT DESCRIBED THE COMPETENT MEDICAL CAUSE OF THIS INJURY/ILLNESS? YES ARE THE PATIENT'S COMPLAINTS CONSISTENT WITH HIS/HER HISTORY OF THE INJURY/ILLNESS? YES IS THE PATIENT'S HISTORY OF THE INJURY/ILLNESS CONSISTENT WITH YOUR OBJECTIVE FINDING? YES WHAT IS THE PERCENTAGE OF TEMPORARY IMPAIRMENT? TOTAL = 100% IS THE PATIENT WORKING? NO DOCTOR ON SITE: JOE VALENTINE MD DISPOSITION & COMMUNICATION FOLLOW UP 2 MONTHS (REASON: KNEE PAIN) ELECTRONICALLY SIGNED BY MITZY BRONSON ON 02/26/2020 AT 08:30 AM EDT DISCLAIMER : THIS IS A VISIT SUMMARY EXTRACTED FROM THE [employer] CHART. IT IS NOT A COPY OF THE [employer] PROGRESS NOTE. RADHA
== END ==
LOC: M PAIN 11:00
PROVIDERS: ATTEND Family Medicine
DX: M25.561 Pain in right knee (principal); G89.29 Other chronic pain; I10 Essential (primary) hypertension; Z86.59 Personal history of other mental and behavioral disorders; Z88.0 Allergy status to penicillin; Z88.1 Allergy status to other antibiotic agents; Z88.2 Allergy status to sulfonamides; Z88.5 Allergy status to narcotic agent; Z88.6 Allergy status to analgesic agent; Z88.8 Allergy status to other drugs, medicaments and biological substances; Z91.040 Latex allergy status; Z79.891 Long term (current) use of opiate analgesic; Z79.899 Other long term (current) drug therapy

== ENCOUNTER → 2020-09-26 | Outpatient (CLI) | payer OTHER ==
[~2020-09-26] MED LIST changes: +MORP-69 PO; +MSIR30TA PO
--- NOTE | 2020-10-01 01:31 | ECWPNPC ---
PATIENT NAME: NICOLE SALTER : 1965 GENDER: FEMALE VISIT DATE: 09/26/2020 DISCHARGE DATE: 09/26/20 1108 VISIT LOCKED DATE TIME: PHYSICIAN: DARIANA HILLIARD RESOURCE: DARIANA HILLIARD REASON FOR APPOINTMENT 1. RIGHT KNEE HISTORY OF PRESENT ILLNESS DEPRESSION SCREENING: PHQ-9 LITTLE INTEREST OR PLEASURE IN DOING THINGSNEARLY EVERY DAY FEELING DOWN, DEPRESSED, OR HOPELESSSEVERAL DAYS TROUBLE FALLING OR STAYING ASLEEP, OR SLEEPING TOO MUCHNEARLY EVERY DAY FEELING TIRED OR HAVING LITTLE ENERGYMORE THAN HALF THE DAYS POOR APPETITE OR OVEREATING MORE THAN HALF THE DAYS FEELING BAD ABOUT YOURSELF-OR THAT YOU ARE A FAILURE OR HAVE LET YOURSELF OR YOUR FAMILY DOWN NOT AT ALL TROUBLE CONCENTRATING ON THINGS, SUCH READING THE NEWSPAPER OR WATCHING TELEVISION NOT AT ALL MOVING OR SPEAKING SO SLOWLY THAT OTHER PEOPLE COULD HAVE NOTICED. OR THE OPPOSITE- BEING SO FIDGETY OR RESTLESS THAT YOU HAVE BEEN MOVING AROUND A LOT MORE THAN USUALNOT AT ALL THOUGHTS THAT YOU WOULD BE BETTER OFF , OR OF HURTING YOURSELF IN SOME WAY?NOT AT ALL TOTAL SCORE:11 INTERPRETATIONMODERATE DEPRESSION PHQ-2 (2015 EDITION) LITTLE INTEREST OR PLEASURE IN DOING THINGS?MORE THAN HALF THE DAYS FEELING DOWN, DEPRESSED, OR HOPELESS?NOT AT ALL TOTAL SCORE2 55-YEAR-OLD FEMALE IN FOR CHRONIC PAIN FOLLOW-UP. SHE RATES HER PAIN CURRENTLY AT A 6 OUT OF 10 AND DESCRIBES IT ACHING, AND SHARP. SHE FEELS HER MEDICATIONS ARE HELPFUL AND DENIES MED SIDE EFFECTS AT THIS TIME. PATIENT DOES ADMIT TO HAVING DIFFICULTIES LIFTING HERSELF OFF THE TOILET SEAT AND HAS REQUESTED A PRESCRIPTION FOR A RAISED TOILET SEAT. GENERAL: -. FALL RISK SCREENING: SCREENING :NO FALLS REPORTED IN THE LAST YEAR PAIN SCREENING: PATIENT HAS A COMPLAINT OF ACUTE OR CHRONIC PAIN :YES LOCATION OF PAIN:KNEES INTENSITY OF PAIN (SCALE OF 1 TO 10):6 WHAT DOES YOUR PAIN FEEL LIKE:ACHING, SHARP DURATION:CONTINOUS, CONSTANT PAIN IS INCREASED BY:ACTIVITIES PAIN IS DECREASED BY:USE OF PAIN MEDICATIONS TREATMENT/MEDICATIONS USED TO MANAGE PAIN:OPIOIDS LEVEL OF RELIEF FROM PAIN TREATMENTS IN THE PAST:75% PAIN HAS INTERFERED WITH THE FOLLOWING:BATHING/DRESSING, WALKING ABILITY, HOUSEWORK, SLEEP, TRANSPORTATION, TOILETING NURSING NOTE: -. PAIN CENTER INTAKE QUESTIONS: DO YOU HAVE A HISTORY OF MRSA? :NO DO YOU TAKE A BLOOD THINNERS? :NO DO YOU HAVE ANY BLEEDING DISORDERS? :NO ANY NEW NUMBNESS OR WEAKNESS IN YOUR LEGS OR ARMS? :YES BILAT LEGS ANY PACEMAKER,DEFIBRILLATOR, OR DORSAL COLUMN STIMULATOR? :NO DO YOU HAVE ANY RASHES OR OPEN SORES? :NO ARE YOU ALLERGIC TO IV DYE? :YES ARE YOU DIABETIC? :NO ANY NEW PROBLEMS WITH YOUR MEDICATIONS? :NO HAVE YOU RECEIVED A VACCINE IN THE PAST 30 DAYS? :NO DO YOU PLAN TO RECEIVE A VACCINE IN THE NEXT 21 DAYS? :NO DO YOU NEED ANY PRESCRIPTION? :YES LYRICA, MORPHINE DO YOU TAKE ANY IMMUNOSUPPRESSIVE MEDICATIONS? :NO IS THERE A CHANCE YOU COULD BE ? :NO ARE YOU BREAST FEEDING? :NO CURRENT MEDICATIONS TAKING LASIX 40 MG TABLET 1 TABLET ORALLY ONCE A DAY TAKING CARDIZEM 120 MG TABLET ORALLY ONCE DAILY TAKING VITAMIN E 400 UNIT TABLET 2 TABLETS ORALLY ONCE A DAY TAKING VITAMIN D (CHOLECALCIFEROL) 1000 UNIT TABLET 1 TABLET ORALLY ONCE A DAY TAKING BIOTIN 300 MCG TABLET 1 TABLET ORALLY ONCE A DAY TAKING LYRICA 200 MG CAPSULE 1 CAPSULE ORALLY Q 8 HRS MDD=3 TAKING MORPHINE SULFATE ER 30 MG TABLET EXTENDED RELEASE 1 TABLET ORALLY EVERY 12 HRS TAKING MORPHINE SULFATE 30 MG TABLET 1-2 TABLET NEEDED ORALLY DAILY TAKING PRILOSEC OTC 20 MG TABLET DELAYED RELEASE 1 TABLET 30 MINUTES BEFORE MORNING MEAL ORALLY ONCE A DAY NOT-TAKING GABAPENTIN 300 MG CAPSULE 1 CAPSULE ORALLY THREE TIMES DAILY NOT-TAKING OXYCODONE HCL 5 MG TABLET 1 TABLET NEEDED ORALLY EVERY 12 HRS MDD2 NOT-TAKING CIPRO HC 0.2-1 % SUSPENSION 3 DROPS INTO AFFECTED EAR OTIC TWICE A DAY NOT-TAKING PROTONIX 40 MG TABLET DELAYED RELEASE 1 TABLET ORALLY ONCE A DAY NOT-TAKING ACETAMINOPHEN 500 MG TABLET 1 TABLET NEEDED ORALLY EVERY 8 HRS NOT-TAKING DULOXETINE HCL 20 MG CAPSULE DELAYED RELEASE PARTICLES 1 CAPSULE ORALLY DAILY NOT-TAKING OXYMORPHONE HCL ER 30 MG TABLET EXTENDED RELEASE 12 HOUR 1 TABLET ORALLY EVERY 12 HRS CHRONIC PAIN MDD=2 NOT-TAKING OXYMORPHONE HCL ER 20 MG TABLET EXTENDED RELEASE 12 HOUR 1 TABLET 1 HOUR BEFORE OR 2 HOURS AFTER EATING ORALLY EVERY 12 HRS MDD=2 NOT-TAKING XANAX 0.5 MG TABLET 1 TABLET ORALLY TWICE A DAY NEEDED NOT-TAKING NORCO 10-325 MG TABLET 1 TABLET ORALLY Q 6-8 HRS PRN PAIN MDD=3 MEDICATION LIST REVIEWED AND RECONCILED WITH THE PATIENT PAST MEDICAL HISTORY HTN GERD HIGH CHOLESTEROL ANXIETY BRONCHIATUS DEPRESSION RSD SINUSITIS PHARYNGITIS BRONCHITIS RIGHT KNEE PAIN LEFT KNEE PAIN ALLERGIES AMITRIPTYLINE HCL: RASH AND SWELLING - ALLERGY BACITRACIN: RASH - ALLERGY INDOCIN: SWELLING AND RASH - ALLERGY VOLTAREN: RASH - ALLERGY LIDOCAINE: RASH - ALLERGY MORPHINE SULFATE: SWELLING AND ITCHING - ALLERGY NAPROXEN: SWELLING - ALLERGY NEOMYCIN SULFATE: RASH - ALLERGY POLYMYXIN B-TRIMETHOPRIM: RASH - ALLERGY OMEPRAZOLE: ITCHING - ALLERGY DICLOFENAC: SWELLING AND RASH - ALLERGY CLARITHROMYCIN: RASH - ALLERGY DEXILANT: FACIAL SWELLING - ALLERGY CELEBREX: RASH AND CHEST PAIN - ALLERGY LATEX (FOR ALLERGY USE ONLY): RASH AND BLISTERS - ALLERGY DULOXETINE HCL: CHEST PAIN - ALLERGY AMINOGLYCOSIDES: RASH - ALLERGY PENICILLIN (FOR ALLERGIES USE ONLY): ANAPHYLAXIS - ALLERGY SULFA (FOR ALLERGY USE ONLY): CHEST PAIN AND RASH - ALLERGY NSAIDS AND IBUPROFEN: SWELLING, DISTRESS, AND DIARRHEA - ALLERGY SURGICAL HISTORY MULTIPLE KNEE RIGHT,HYSTERECTOMY,CHOLECYSTECTOMY,TONSILLECTOMY,MULT LAPAROSCOPIES,LEFT SHOULDER SKIN CA LEFT KNEE REPAIR 12/2019 FAMILY HISTORY FATHER: , DIAGNOSED WITH DIABETES, OTHER MALIGNANT NEOPLASM OF UNSPECIFIED SITE MOTHER: , OTHER MALIGNANT NEOPLASM OF UNSPECIFIED SITE, HYPERTENSION SIBLINGS: OTHER MALIGNANT NEOPLASM OF UNSPECIFIED SITE FATHER FROM CANCERMOTHER AND SISTER FROM BREAST CANCER2 BROTHERS WITH HISTORY OF BLADDER CANCER. SOCIAL HISTORY GENERAL: TOBACCO USE ARE YOU A: NONSMOKER. LATEX QUESTIONNAIRE LATEX ALLERGY : HAVE YOU EVER DEVELOPED ANY TYPE OF REACTION AFTER HANDLING LATEX PRODUCTS SUCH RUBBER GLOVES, CONDOMS, DIAPHRAGMS, BALLOONS, SOCKS, OR UNDERWEAR?YES - PLEASE INDICATE :RUBBER GLOVES PT GETS RASH AND BLISTERS WHEN EXPOSED TO LATEX DATE ASKED : 09/26/2020 ALCOHOL SCREENING DID YOU HAVE A DRINK CONTAINING ALCOHOL IN THE PAST YEAR?NO POINTS0 INTERPRETATIONNEGATIVE RECREATIONAL DRUG USE DRUG USE?NO CAFFEINE CAFFEINE USE?YES HOW OFTEN AND HOW MUCH? 1 CUP COFFEE DAILY OF Q OTHER DAY PEPSI Q OTHER DAY UATSDIN [id number] ROMAN CATHOL[employer] LANGUAGE LANGUAGES SPOKEN:CYPRIOT LEARNING BARRIERS / SPECIAL NEEDS BARRIERS TO LEARNING?NO HEARING IMPAIRED?NO VISION IMPAIRED?YES COGNITIVELY IMPAIRED?NO :CORRECTIVE LENSES READINESS TO LEARN?YES DOMESTIC VIOLENCE DO YOU FEEL SAFE IN YOUR ENVIRONMENT?YES DIET: REGULAR. EXERCISE: DAILY LEG EXERCISES. PATIENT DESCRIBES PAIN :ACHING, BURNING, HAVE IT ALL THE TIME, STABBING, TENDER, SORE FROM 0-10, WHAT LEVEL IS YOUR PAIN TODAY?8 PRECIPITATING FACTORS WALKING,ACTIVITY, BENDING ALLEVIATING FACTORS HEAT IMPACT ON FUNCTION YES PAIN CLINIC PFS, CLERGY, PUBLIC HEALTH REFERRALS PFS REFERRAL NEEDED?NO CLERGY REFERRAL NEEDED?NO PUBLIC HEALTH REFERRAL NEEDED?NO WAS THE PROVIDER NOTIFIED OF ANY PERTINENT INFO?NO N/A HAS THE PATIENT BEEN EDUCATED REGARDING HIS/HER PLAN OF CARE?YES HAS THE PATIENT BEEN EDUCATED REGARDING PAIN, THE RISK FOR PAIN, THE IMPORTANCE OF EFFECTIVE PAIN MANAGEMENT, AND THE PAIN ASSESSMENT PROCESS?YES ADVANCE DIRECTIVE ADVANCE DIRECTIVE DISCUSSED WITH PATIENT:YES PT DOES NOT HAVE HCP. INFORMATION PACKET GIVEN. ASSISTANCE DECLINED. REVIEWED WITH PT 02/07/19 1544 BVREVIEWED WITH PT 03/24/19 1519 BVREVIEWED WITH PATEINT 06/07/19 NLJREVIEWED WITH PATIENT 10/18/19 1301 NLJ. HOSPITALIZATION/MAJOR DIAGNOSTIC PROCEDURE SURGERIES REVIEW OF SYSTEMS CONSTITUTIONAL: ANY RECENT FEVER NO . CHILLS NO . WEIGHT CHANGE OF UNKNOWN REASONS NO . GASTROENTEROLOGY: NEW UNEXPLAINABLE CHANGES IN BOWEL CONTROL NO . CONSTIPATION NO . GENITOURINARY: ANY NEW CHANGE IN BLADDER CONTROL? NO . NEUROLOGY: NEW ONSET DIZZINESS OR NEUROLOGICAL CHANGES NOT MENTIONED NO . NEW NUMBNESS OR PAIN PATTERNS NOT MENTIONED AND PERTINENT TO TODAY'S VISIT NO . CARDIOLOGY: NEW CHEST PRESSURE NO . NEW CHEST PAIN NO . RESPIRATORY: UNEXPLAINABLE COUGH NO . NEW SHORTNESS OF BREATH NO . VITAL SIGNS WT 181.2 LBS, HT 66 IN, BMI 29.24 INDEX, BP 143/90 MM HG, HR 102 /MIN, RR 18 /MIN, TEMP 96.5 F, OXYGEN SAT % 97%, SAFE IN ENV? (Y/N) Y, NA INITIALS AW 1020, REVIEWED BY: EM. EXAMINATION GENERAL EXAMINATION: GENERALNO ACUTE DISTRESS, WELL NOURISHED AND HYDRATED. PSYCHAPPROPRIATE MOOD AND AFFECT . LUNGS:CLEAR TO AUSCULTATION BILATERALLY, NO WHEEZES, RHONCHI, RALES. HEART:NO MURMURS, REGULAR RATE AND RHYTHM. 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 CHRONIC PAIN FOLLOW-UP. GIVEN PRESENTING SYMPTOMS RECOMMEND CONTINUATION OF CURRENT MEDICATION REGIMEN WITH FOLLOW-UP IN 3 MONTHS. PRESCRIPTION FOR RAISED TOILET SEAT TO BE GIVEN TO PATIENT TODAY. U TOX AND NARCOTICS AGREEMENT TO BE OBTAINED TODAY. PATIENT HAS EXPRESSED UNDERSTANDING OF AND WAS IN AGREEMENT WITH TREATMENT PLAN. GIVEN TIME TO ASK QUESTIONS AND EXPRESS CONCERNS. , ISTOP REGISTRY REVIEWED AND DEMONSTRATES COMPLLIANCE. (REF # [id number] ) BRINGS IN MEDICATIONS WHICH IS APPROPRIATE FOR WHAT WAS DISPENSED. RECENT URINE TOXICOLOGY REVIEWED. NO UNAUTHORIZED MEDICATIONS. NO ILLICIT SUBSTANCES AND PRESCRIBED MEDICATIONS WERE PRESENT. UTOX DONE, NARCOTIC AGREEMENT DONE. EM. RIGHT KNEE PAIN REFILL LYRICA CAPSULE, 200 MG, 1 CAPSULE, ORALLY, Q 8 HRS MDD=3, 30 DAYS, 90, REFILLS 0 REFILL MORPHINE SULFATE ER TABLET EXTENDED RELEASE, 30 MG, 1 TABLET, ORALLY, EVERY 12 HRS, 30 DAYS, 60 TABLET, REFILLS 0 REFILL MORPHINE SULFATE TABLET, 30 MG, 1-2 TABLET NEEDED, ORALLY, DAILY, 30 DAYS, 60, REFILLS 0 OTHERS NOTES: PT ASKING FOR SCRIPT FOR RAISED TOILET SEAT. EM. PROCEDURE CODES FA211 ESTABILISHED PATIENT [facility] FACILITY CHARGE DISPOSITION & COMMUNICATION FOLLOW UP 3 MONTHS (REASON: CRPS LOWER LIMB W/C) ELECTRONICALLY SIGNED BY MITZY BRONSON ON 09/30/2020 AT 08:45 AM EST DISCLAIMER : THIS IS A VISIT SUMMARY EXTRACTED FROM THE [employer] CHART. IT IS NOT A COPY OF THE [employer] PROGRESS NOTE. JOSE FRANCISCOD
== END ==
LOC: M PAIN 10:15
PROVIDERS: ATTEND Family Medicine
DX: G90.529 Complex regional pain syndrome I of unspecified lower limb (principal); M25.561 Pain in right knee; I10 Essential (primary) hypertension; K21.9 Gastro-esophageal reflux disease without esophagitis; E78.00 Pure hypercholesterolemia, unspecified; F41.9 Anxiety disorder, unspecified; F32.9 Major depressive disorder, single episode, unspecified; Z79.891 Long term (current) use of opiate analgesic; Z79.899 Other long term (current) drug therapy; Z88.0 Allergy status to penicillin; Z88.1 Allergy status to other antibiotic agents; Z88.2 Allergy status to sulfonamides; Z88.5 Allergy status to narcotic agent; Z88.6 Allergy status to analgesic agent; Z88.8 Allergy status to other drugs, medicaments and biological substances; Z91.040 Latex allergy status

== ENCOUNTER → 2020-12-02 | Outpatient (CLI) | payer OTHER ==
--- NOTE | 2020-12-04 04:20 | ECWPNPC ---
PATIENT NAME: NICOLE SALTER : 1965 GENDER: FEMALE VISIT DATE: 12/02/2020 DISCHARGE DATE: 12/02/20 1112 VISIT LOCKED DATE TIME: PHYSICIAN: DARIANA HILLIARD RESOURCE: DARIANA HILLIARD REASON FOR APPOINTMENT 1. CRPS LOWER LIMB HISTORY OF PRESENT ILLNESS GENERAL: 55-YEAR-OLD FEMALE IN FOR CHRONIC PAIN FOLLOW-UP. SHE RATES HER PAIN CURRENTLY AT A 6 OUT OF 10 AND DESCRIBES IT ACHING AND BURNING. SHE FEELS THE MEDICATIONS ARE HELPFUL AND DENIES MED SIDE EFFECTS AT THIS TIME. -. FALL RISK SCREENING: SCREENING :NO FALLS REPORTED IN THE LAST YEAR PAIN SCREENING: PATIENT HAS A COMPLAINT OF ACUTE OR CHRONIC PAIN :YES LOCATION OF PAIN:KNEES RIGHT LEG INTENSITY OF PAIN (SCALE OF 1 TO 10):6 WHAT DOES YOUR PAIN FEEL LIKE:ACHING, BURNING DURATION:CONTINOUS, CONSTANT, ALL DAY PAIN IS INCREASED BY:ACTIVITIES, PROLONGED STANDING PAIN IS DECREASED BY:OTHERS HEAT NURSING NOTE: -. PAIN CENTER INTAKE QUESTIONS: DO YOU HAVE A HISTORY OF MRSA? :NO DO YOU TAKE A BLOOD THINNERS? :NO DO YOU HAVE ANY BLEEDING DISORDERS? :NO ANY NEW NUMBNESS OR WEAKNESS IN YOUR LEGS OR ARMS? :YES BILAT LEGS ANY PACEMAKER,DEFIBRILLATOR, OR DORSAL COLUMN STIMULATOR? :NO DO YOU HAVE ANY RASHES OR OPEN SORES? :NO ARE YOU ALLERGIC TO IV DYE? :YES ARE YOU DIABETIC? :NO ANY NEW PROBLEMS WITH YOUR MEDICATIONS? :NO HAVE YOU RECEIVED A VACCINE IN THE PAST 30 DAYS? :NO DO YOU PLAN TO RECEIVE A VACCINE IN THE NEXT 21 DAYS? :NO DO YOU NEED ANY PRESCRIPTION? :YES LYRICA, MORPHINE DO YOU TAKE ANY IMMUNOSUPPRESSIVE MEDICATIONS? :NO IS THERE A CHANCE YOU COULD BE ? :NO ARE YOU BREAST FEEDING? :NO CURRENT MEDICATIONS TAKING LASIX 40 MG TABLET 1 TABLET ORALLY ONCE A DAY TAKING CARDIZEM 120 MG TABLET ORALLY ONCE DAILY TAKING VITAMIN E 400 UNIT TABLET 2 TABLETS ORALLY ONCE A DAY TAKING VITAMIN D (CHOLECALCIFEROL) 1000 UNIT TABLET 1 TABLET ORALLY ONCE A DAY TAKING BIOTIN 300 MCG TABLET 1 TABLET ORALLY ONCE A DAY TAKING PRILOSEC OTC 20 MG TABLET DELAYED RELEASE 1 TABLET 30 MINUTES BEFORE MORNING MEAL ORALLY ONCE A DAY TAKING MORPHINE SULFATE ER 30 MG TABLET EXTENDED RELEASE 1 TABLET ORALLY EVERY 12 HRS TAKING MORPHINE SULFATE 30 MG TABLET 1-2 TABLET NEEDED ORALLY DAILY TAKING LYRICA 200 MG CAPSULE 1 CAPSULE ORALLY Q 8 HRS MDD=3 TAKING SELENIUM 200 MCG TABLET 1 TABLET ORALLY ONCE A DAY NOT-TAKING GABAPENTIN 300 MG CAPSULE 1 CAPSULE ORALLY THREE TIMES DAILY NOT-TAKING OXYCODONE HCL 5 MG TABLET 1 TABLET NEEDED ORALLY EVERY 12 HRS MDD2 NOT-TAKING CIPRO HC 0.2-1 % SUSPENSION 3 DROPS INTO AFFECTED EAR OTIC TWICE A DAY NOT-TAKING PROTONIX 40 MG TABLET DELAYED RELEASE 1 TABLET ORALLY ONCE A DAY NOT-TAKING ACETAMINOPHEN 500 MG TABLET 1 TABLET NEEDED ORALLY EVERY 8 HRS NOT-TAKING DULOXETINE HCL 20 MG CAPSULE DELAYED RELEASE PARTICLES 1 CAPSULE ORALLY DAILY NOT-TAKING OXYMORPHONE HCL ER 30 MG TABLET EXTENDED RELEASE 12 HOUR 1 TABLET ORALLY EVERY 12 HRS CHRONIC PAIN MDD=2 NOT-TAKING OXYMORPHONE HCL ER 20 MG TABLET EXTENDED RELEASE 12 HOUR 1 TABLET 1 HOUR BEFORE OR 2 HOURS AFTER EATING ORALLY EVERY 12 HRS MDD=2 NOT-TAKING XANAX 0.5 MG TABLET 1 TABLET ORALLY TWICE A DAY NEEDED NOT-TAKING NORCO 10-325 MG TABLET 1 TABLET ORALLY Q 6-8 HRS PRN PAIN MDD=3 MEDICATION LIST REVIEWED AND RECONCILED WITH THE PATIENT ALLERGIES NO[ALLERGIES VERIFIED] SOCIAL HISTORY GENERAL: TOBACCO USE ARE YOU A: NONSMOKER. LATEX QUESTIONNAIRE LATEX ALLERGY : HAVE YOU EVER DEVELOPED ANY TYPE OF REACTION AFTER HANDLING LATEX PRODUCTS SUCH RUBBER GLOVES, CONDOMS, DIAPHRAGMS, BALLOONS, SOCKS, OR UNDERWEAR?YES - PLEASE INDICATE :RUBBER GLOVES PT GETS RASH AND BLISTERS WHEN EXPOSED TO LATEX LATEX ALLERGY : HAVE YOU EVER DEVELOPED ANY TYPE OF REACTION DURING OR AFTER DENTAL APPOINTMENT, VAGINAL/RECTAL EXAMINATION, SURGICAL PROCEDURE, OR ANY OTHER EXPOSURE?NO LATEX RISK : HAVE YOU EVER HAD ANY DIFFICULTY BREATHING OR HIVES AFTER EATING OR HANDLING ANY FRUITS, OR VEGETABLES; SUCH KIWI, BANANAS, STONE FRUITS, OR CHESTNUTSYES - PLEASE INDICATE : CHESTNUTS LATEX RISK : DO YOU HAVE A PREVIOUS PERSONAL HISTORY OF MORE THAN NINE SURGERIES, SPINA BIFIDA, OR REPEATED CATHERIZATIONS? NO LATEX RISK : ARE YOU FREQUENTLY EXPOSED TO LATEX PRODUCTS IN YOUR OCCUPATION?NO DATE ASKED : 12/02/2020 ALCOHOL USE: NO. ALCOHOL SCREENING DID YOU HAVE A DRINK CONTAINING ALCOHOL IN THE PAST YEAR?NO POINTS0 INTERPRETATIONNEGATIVE RECREATIONAL DRUG USE DRUG USE?NO CAFFEINE CAFFEINE USE?YES HOW OFTEN AND HOW MUCH? 1 CUP COFFEE DAILY OF Q OTHER DAY PEPSI Q OTHER DAY YARSANISM [id number] NONDENOMINATIONAL LANGUAGE LANGUAGES SPOKEN:EMIRATI LEARNING BARRIERS / SPECIAL NEEDS CHANGE FROM LAST VISIT?YES BARRIERS TO LEARNING?NO HEARING IMPAIRED?NO VISION IMPAIRED?YES :CORRECTIVE LENSES COGNITIVELY IMPAIRED?NO READINESS TO LEARN?YES LEARNING PREFERENCES?YES :HANDOUTS LEARNING CAPABILITIES PRESENT?YES EMOTIONAL BARRIERS?NO SPECIAL DEVICES?YES :CANE NEEDEED CLOTH EXAMINER NEEDED?NO DOMESTIC VIOLENCE DO YOU FEEL SAFE IN YOUR ENVIRONMENT?YES DIET: REGULAR. EXERCISE: DAILY LEG EXERCISES. PATIENT DESCRIBES PAIN :ACHING, BURNING, HAVE IT ALL THE TIME, STABBING, TENDER, SORE FROM 0-10, WHAT LEVEL IS YOUR PAIN TODAY?8 PRECIPITATING FACTORS WALKING,ACTIVITY, BENDING ALLEVIATING FACTORS HEAT IMPACT ON FUNCTION YES - PFS REFERRAL NEEDED?NO CLERGY REFERRAL NEEDED?NO PUBLIC HEALTH REFERRAL NEEDED?NO WAS THE PROVIDER NOTIFIED OF ANY PERTINENT INFO?NO N/A HAS THE PATIENT BEEN EDUCATED REGARDING HIS/HER PLAN OF CARE?YES HAS THE PATIENT BEEN EDUCATED REGARDING PAIN, THE RISK FOR PAIN, THE IMPORTANCE OF EFFECTIVE PAIN MANAGEMENT, AND THE PAIN ASSESSMENT PROCESS?YES ADVANCE DIRECTIVE ADVANCE DIRECTIVE DISCUSSED WITH PATIENT:YES PT DOES NOT HAVE HCP. INFORMATION PACKET GIVEN. ASSISTANCE DECLINED. REVIEWED WITH PT 02/07/19 1544 BVREVIEWED WITH PT 03/24/19 1519 BVREVIEWED WITH PATEINT 06/07/19 NLJREVIEWED WITH PATIENT 10/18/19 1301 NLJ. REVIEW OF SYSTEMS CONSTITUTIONAL: ANY RECENT FEVER NO . CHILLS NO . WEIGHT CHANGE OF UNKNOWN REASONS NO . GASTROENTEROLOGY: NEW UNEXPLAINABLE CHANGES IN BOWEL CONTROL NO . CONSTIPATION NO . GENITOURINARY: ANY NEW CHANGE IN BLADDER CONTROL? NO . NEUROLOGY: NEW ONSET DIZZINESS OR NEUROLOGICAL CHANGES NOT MENTIONED NO . NEW NUMBNESS OR PAIN PATTERNS NOT MENTIONED AND PERTINENT TO TODAY'S VISIT NO . CARDIOLOGY: NEW CHEST PRESSURE NO . NEW CHEST PAIN NO . RESPIRATORY: UNEXPLAINABLE COUGH NO . NEW SHORTNESS OF BREATH NO . VITAL SIGNS WT 188 LBS, HT 66 IN, BMI 30.34 INDEX, BP 119/58 MM HG, HR 83 /MIN, RR 18 /MIN, TEMP 96.7 F, OXYGEN SAT % 99%, SAFE IN ENV? (Y/N) YEST.ROSALIE WALLACE. EXAMINATION GENERAL EXAMINATION: GENERALNO ACUTE DISTRESS, WELL NOURISHED AND HYDRATED. PSYCHAPPROPRIATE MOOD AND AFFECT . LUNGS:CLEAR TO AUSCULTATION BILATERALLY, NO WHEEZES, RHONCHI, RALES. HEART:NO MURMURS, REGULAR RATE AND RHYTHM. ASSESSMENTS PAIN IN RIGHT KNEE - M25.561 (PRIMARY), RISK: (NULL) TREATMENT PAIN IN RIGHT KNEE NOTES: 55-YEAR-OLD FEMALE IN FOR CHRONIC PAIN FOLLOW-UP. GIVEN PRESENTING SYMPTOMS RECOMMENDED CONTINUATION OF CURRENT MEDICATION REGIMEN WITH FOLLOW-UP IN 3 MONTHS. PATIENT HAS EXPRESSED UNDERSTANDING OF AND WAS IN AGREEMENT WITH TREATMENT PLAN. GIVEN TIME TO ASK QUESTIONS AND EXPRESS CONCERNS. , ISTOP REGISTRY REVIEWED AND DEMONSTRATES COMPLLIANCE. (REF # [id number] ) BRINGS IN MEDICATIONS WHICH IS APPROPRIATE FOR WHAT WAS DISPENSED. RECENT URINE TOXICOLOGY REVIEWED. NO UNAUTHORIZED MEDICATIONS. NO ILLICIT SUBSTANCES AND PRESCRIBED MEDICATIONS WERE PRESENT. PROCEDURE CODES FA211 ESTABILISHED PATIENT [facility] FACILITY CHARGE DISPOSITION & COMMUNICATION FOLLOW UP 3 MONTHS (REASON: KNEE PAIN ) ELECTRONICALLY SIGNED BY MITZY BRONSON ON 12/03/2020 AT 12:58 PM EST DISCLAIMER : THIS IS A VISIT SUMMARY EXTRACTED FROM THE [employer] CHART. IT IS NOT A COPY OF THE [employer] PROGRESS NOTE. RADHA
== END ==
LOC: M PAIN 10:30
PROVIDERS: ATTEND Family Medicine
DX: M25.561 Pain in right knee (principal); Z79.891 Long term (current) use of opiate analgesic; Z79.899 Other long term (current) drug therapy

== ENCOUNTER → 2021-03-03 | Outpatient (CLI) | payer OTHER ==
--- NOTE | 2021-03-05 05:58 | ECWPNPC ---
PATIENT NAME: NICOLE SALTER : 1965 GENDER: FEMALE VISIT DATE: 03/03/2021 DISCHARGE DATE: 03/03/21 1151 VISIT LOCKED DATE TIME: PHYSICIAN: DARIANA HILLIARD RESOURCE: DARIANA HILLIARD REASON FOR APPOINTMENT 1. RIGHT KNEE PAIN HISTORY OF PRESENT ILLNESS GENERAL: -55-YEAR-OLD FEMALE IN FOR CHRONIC PAIN FOLLOW-UP. SHE RATES HER PAIN CURRENTLY AT A 6 OUT OF 10 AND DESCRIBES IT ACHING, TENDER, AND THROBBING. SHE FEELS HER MEDICATIONS ARE HELPFUL AND DENIES MED SIDE EFFECTS AT THIS TIME. 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 THE PATIENT SAYS THE PAIN IN HER RIGHT KNEE RADIATES UP INTO HER THIGH AREA. THE PATIENT REPORTS HAVING 3 SURGERIES OVER HER RIGHT KNEE, BUT HER PAIN PERSISTS. THE PATIENT SAYS THAT SHE HAS DIFFICULTY BENDING OVER DUE TO THIS PAIN. FALL RISK SCREENING: SCREENING : NO FALLS REPORTED IN THIS YEAR. PAIN SCREENING: PATIENT HAS A COMPLAINT OF ACUTE OR CHRONIC PAIN :YES LOCATION OF PAIN:KNEES BOTH KNEES HURT BUT WE ARE HERE FOR THE RIGHT INTENSITY OF PAIN (SCALE OF 1 TO 10):6 WHAT DOES YOUR PAIN FEEL LIKE:ACHING, TENDER, THROBBING DURATION:CONTINOUS, CONSTANT, ALL DAY, ONLY WITH SPECIFIC ACTIVITIES PAIN IS INCREASED BY:ACTIVITIES, PROLONGED STANDING PAIN IS DECREASED BY:USE OF PAIN MEDICATIONS NURSING NOTE: -. PAIN CENTER INTAKE QUESTIONS: DO YOU HAVE A HISTORY OF MRSA? :NO DO YOU TAKE A BLOOD THINNERS? :NO DO YOU HAVE ANY BLEEDING DISORDERS? :NO ANY NEW NUMBNESS OR WEAKNESS IN YOUR LEGS OR ARMS? :YES BILAT LEGS ANY PACEMAKER,DEFIBRILLATOR, OR DORSAL COLUMN STIMULATOR? :NO DO YOU HAVE ANY RASHES OR OPEN SORES? :NO ARE YOU ALLERGIC TO IV DYE? :YES ARE YOU DIABETIC? :NO ANY NEW PROBLEMS WITH YOUR MEDICATIONS? :YES WILL LIKE TO TALK TO DARIANA MORE ABOUT IT HAVE YOU RECEIVED A VACCINE IN THE PAST 30 DAYS? :NO DO YOU PLAN TO RECEIVE A VACCINE IN THE NEXT 21 DAYS? :NO DO YOU NEED ANY PRESCRIPTION? :NO DO YOU TAKE ANY IMMUNOSUPPRESSIVE MEDICATIONS? :NO IS THERE A CHANCE YOU COULD BE ? :NO ARE YOU BREAST FEEDING? :NO CURRENT MEDICATIONS TAKING LASIX 40 MG TABLET 1 TABLET ORALLY ONCE A DAY TAKING CARDIZEM 120 MG TABLET ORALLY ONCE DAILY TAKING VITAMIN E 400 UNIT TABLET 2 TABLETS ORALLY ONCE A DAY TAKING VITAMIN D (CHOLECALCIFEROL) 1000 UNIT TABLET 1 TABLET ORALLY ONCE A DAY TAKING BIOTIN 300 MCG TABLET 1 TABLET ORALLY ONCE A DAY TAKING PRILOSEC OTC 20 MG TABLET DELAYED RELEASE 1 TABLET 30 MINUTES BEFORE MORNING MEAL ORALLY ONCE A DAY TAKING LYRICA 200 MG CAPSULE 1 CAPSULE ORALLY Q 8 HRS MDD=3 TAKING MORPHINE SULFATE ER 30 MG TABLET EXTENDED RELEASE 1 TABLET ORALLY EVERY 12 HRS MDD2 TAKING MORPHINE SULFATE 30 MG TABLET 1-2 TABLET NEEDED ORALLY DAILY MDD2 NOT-TAKING SELENIUM 200 MCG TABLET 1 TABLET ORALLY ONCE A DAY NOT-TAKING GABAPENTIN 300 MG CAPSULE 1 CAPSULE ORALLY THREE TIMES DAILY NOT-TAKING OXYCODONE HCL 5 MG TABLET 1 TABLET NEEDED ORALLY EVERY 12 HRS MDD2 NOT-TAKING CIPRO HC 0.2-1 % SUSPENSION 3 DROPS INTO AFFECTED EAR OTIC TWICE A DAY NOT-TAKING PROTONIX 40 MG TABLET DELAYED RELEASE 1 TABLET ORALLY ONCE A DAY NOT-TAKING ACETAMINOPHEN 500 MG TABLET 1 TABLET NEEDED ORALLY EVERY 8 HRS NOT-TAKING DULOXETINE HCL 20 MG CAPSULE DELAYED RELEASE PARTICLES 1 CAPSULE ORALLY DAILY NOT-TAKING OXYMORPHONE HCL ER 30 MG TABLET EXTENDED RELEASE 12 HOUR 1 TABLET ORALLY EVERY 12 HRS CHRONIC PAIN MDD=2 NOT-TAKING OXYMORPHONE HCL ER 20 MG TABLET EXTENDED RELEASE 12 HOUR 1 TABLET 1 HOUR BEFORE OR 2 HOURS AFTER EATING ORALLY EVERY 12 HRS MDD=2 NOT-TAKING XANAX 0.5 MG TABLET 1 TABLET ORALLY TWICE A DAY NEEDED NOT-TAKING NORCO 10-325 MG TABLET 1 TABLET ORALLY Q 6-8 HRS PRN PAIN MDD=3 MEDICATION LIST REVIEWED AND RECONCILED WITH THE PATIENT PAST MEDICAL HISTORY HTN GERD HIGH CHOLESTEROL ANXIETY BRONCHIATUS DEPRESSION RSD SINUSITIS PHARYNGITIS BRONCHITIS RIGHT KNEE PAIN LEFT KNEE PAIN ALLERGIES AMITRIPTYLINE HCL: RASH AND SWELLING - ALLERGY BACITRACIN: RASH - ALLERGY INDOCIN: SWELLING AND RASH - ALLERGY VOLTAREN: RASH - ALLERGY LIDOCAINE: RASH - ALLERGY MORPHINE SULFATE: SWELLING AND ITCHING - ALLERGY NAPROXEN: SWELLING - ALLERGY NEOMYCIN SULFATE: RASH - ALLERGY POLYMYXIN B-TRIMETHOPRIM: RASH - ALLERGY OMEPRAZOLE: ITCHING - ALLERGY DICLOFENAC: SWELLING AND RASH - ALLERGY CLARITHROMYCIN: RASH - ALLERGY DEXILANT: FACIAL SWELLING - ALLERGY CELEBREX: RASH AND CHEST PAIN - ALLERGY LATEX (FOR ALLERGY USE ONLY): RASH AND BLISTERS - ALLERGY DULOXETINE HCL: CHEST PAIN - ALLERGY AMINOGLYCOSIDES: RASH - ALLERGY PENICILLIN (FOR ALLERGIES USE ONLY): ANAPHYLAXIS - ALLERGY SULFA (FOR ALLERGY USE ONLY): CHEST PAIN AND RASH - ALLERGY NSAIDS AND IBUPROFEN: SWELLING, DISTRESS, AND DIARRHEA - ALLERGY SOCIAL HISTORY GENERAL: TOBACCO USE ARE YOU A: NONSMOKER. LATEX QUESTIONNAIRE LATEX ALLERGY : HAVE YOU EVER DEVELOPED ANY TYPE OF REACTION AFTER HANDLING LATEX PRODUCTS SUCH RUBBER GLOVES, CONDOMS, DIAPHRAGMS, BALLOONS, SOCKS, OR UNDERWEAR?YES - PLEASE INDICATE :RUBBER GLOVES PT GETS RASH AND BLISTERS WHEN EXPOSED TO LATEX LATEX ALLERGY : HAVE YOU EVER DEVELOPED ANY TYPE OF REACTION DURING OR AFTER DENTAL APPOINTMENT, VAGINAL/RECTAL EXAMINATION, SURGICAL PROCEDURE, OR ANY OTHER EXPOSURE?NO LATEX RISK : HAVE YOU EVER HAD ANY DIFFICULTY BREATHING OR HIVES AFTER EATING OR HANDLING ANY FRUITS, OR VEGETABLES; SUCH KIWI, BANANAS, STONE FRUITS, OR CHESTNUTSYES - PLEASE INDICATE : CHESTNUTS LATEX RISK : DO YOU HAVE A PREVIOUS PERSONAL HISTORY OF MORE THAN NINE SURGERIES, SPINA BIFIDA, OR REPEATED CATHERIZATIONS? NO LATEX RISK : ARE YOU FREQUENTLY EXPOSED TO LATEX PRODUCTS IN YOUR OCCUPATION?NO DATE ASKED : 03/03/2021 ALCOHOL USE: NO. ALCOHOL SCREENING DID YOU HAVE A DRINK CONTAINING ALCOHOL IN THE PAST YEAR?NO POINTS0 INTERPRETATIONNEGATIVE RECREATIONAL DRUG USE DRUG USE?NO CAFFEINE CAFFEINE USE?YES HOW OFTEN AND HOW MUCH? 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 EXERCISE: DAILY LEG EXERCISES. PATIENT DESCRIBES PAIN :ACHING, BURNING, HAVE IT ALL THE TIME, STABBING, TENDER, SORE FROM 0-10, WHAT LEVEL IS YOUR PAIN TODAY?8 PRECIPITATING FACTORS WALKING,ACTIVITY, BENDING ALLEVIATING FACTORS HEAT IMPACT ON FUNCTION YES - PFS REFERRAL NEEDED?NO CLERGY REFERRAL NEEDED?NO PUBLIC HEALTH REFERRAL NEEDED?NO WAS THE PROVIDER NOTIFIED OF ANY PERTINENT INFO?NO N/A HAS THE PATIENT BEEN EDUCATED REGARDING HIS/HER PLAN OF CARE?YES HAS THE PATIENT BEEN EDUCATED REGARDING PAIN, THE RISK FOR PAIN, THE IMPORTANCE OF EFFECTIVE PAIN MANAGEMENT, AND THE PAIN ASSESSMENT PROCESS?YES ADVANCE DIRECTIVE ADVANCE DIRECTIVE DISCUSSED WITH PATIENT:YES PT DOES NOT HAVE HCP. INFORMATION PACKET GIVEN. ASSISTANCE DECLINED. REVIEWED WITH PT 02/07/19 1544 BVREVIEWED WITH PT 03/24/19 1519 BVREVIEWED WITH PATEINT 06/07/19 NLJREVIEWED WITH PATIENT 10/18/19 1301 NLJ. REVIEW OF SYSTEMS CONSTITUTIONAL: ANY RECENT FEVER NO . CHILLS NO . WEIGHT CHANGE OF UNKNOWN REASONS NO . GASTROENTEROLOGY: NEW UNEXPLAINABLE CHANGES IN BOWEL CONTROL NO . CONSTIPATION NO . GENITOURINARY: ANY NEW CHANGE IN BLADDER CONTROL? NO . NEUROLOGY: NEW ONSET DIZZINESS OR NEUROLOGICAL CHANGES NOT MENTIONED NO . NEW NUMBNESS OR PAIN PATTERNS NOT MENTIONED AND PERTINENT TO TODAY'S VISIT NO . CARDIOLOGY: NEW CHEST PRESSURE NO . PATIENT DENIES NO . RESPIRATORY: UNEXPLAINABLE COUGH NO . NEW SHORTNESS OF BREATH NO . VITAL SIGNS WT 192.6 LBS, HT 66 IN, BMI 31.08 INDEX, BP 145/68 MM HG, HR 71 /MIN, RR 18 /MIN, TEMP 97.8 F, OXYGEN SAT % 97%, SAFE IN ENV? (Y/N) YES, NA INITIALS AW 1119T.ROSALIE WALLACE. EXAMINATION GENERAL EXAMINATION: GENERALNO ACUTE DISTRESS, WELL NOURISHED AND HYDRATED. PSYCHAPPROPRIATE MOOD AND AFFECT . LUNGS:CLEAR TO AUSCULTATION BILATERALLY, NO WHEEZES, RHONCHI, RALES. HEART:NO MURMURS, REGULAR RATE AND RHYTHM. 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 CHRONIC PAIN FOLLOW-UP. GIVEN PRESENTING SYMPTOMS RECOMMEND FOLLOW-UP IN ONE MONTH PATIENT WILL BE SEEN BY ORTHOPEDICS AND POTENTIALLY HAVE FLUID DRAINED OFF OF HER KNEE. PATIENT HAS EXPRESSED UNDER SENDING OF AND WAS IN AGREEMENT TREATMENT PLAN. GIVEN TIME TO ASK QUESTIONS AND EXPRESS CONCERNS. , ISTOP REGISTRY REVIEWED AND DEMONSTRATES COMPLLIANCE. (REF # [id number] ) BRINGS IN MEDICATIONS WHICH IS APPROPRIATE FOR WHAT WAS DISPENSED. RECENT URINE TOXICOLOGY REVIEWED. NO UNAUTHORIZED MEDICATIONS. NO ILLICIT SUBSTANCES AND PRESCRIBED MEDICATIONS WERE PRESENT. PROCEDURES PN WORKMANS' COMP OPINION IN YOUR OPINION, WAS THE INCIDENT THAT THE PATIENT DESCRIBED THE COMPETENT MEDICAL CAUSE OF THIS INJURY/ILLNESS? YES ARE THE PATIENT'S COMPLAINTS CONSISTENT WITH HIS/HER HISTORY OF THE INJURY/ILLNESS? YES IS THE PATIENT'S HISTORY OF THE INJURY/ILLNESS CONSISTENT WITH YOUR OBJECTIVE FINDING? YES WHAT IS THE PERCENTAGE OF TEMPORARY IMPAIRMENT? TOTAL = 100% IS THE PATIENT WORKING? NO DOCTOR ON SITE: JOE VALENTINE MD PROCEDURE CODES FA211 ESTABILISHED PATIENT [facility] CHARGE DISPOSITION & COMMUNICATION FOLLOW UP 4 WEEKS (REASON: RIGHT KNEE PAIN ) ELECTRONICALLY SIGNED BY MITZY BRONSON ON 03/04/2021 AT 08:43 AM EDT DISCLAIMER : THIS IS A VISIT SUMMARY EXTRACTED FROM THE [employer] CHART. IT IS NOT A COPY OF THE [employer] PROGRESS NOTE. RADHA
== END ==
LOC: M PAIN 11:15
PROVIDERS: ATTEND Family Medicine
DX: M25.561 Pain in right knee (principal); I10 Essential (primary) hypertension; K21.9 Gastro-esophageal reflux disease without esophagitis; E78.00 Pure hypercholesterolemia, unspecified; F41.9 Anxiety disorder, unspecified; F32.9 Major depressive disorder, single episode, unspecified; M25.562 Pain in left knee; Z79.891 Long term (current) use of opiate analgesic; Z79.899 Other long term (current) drug therapy; Z88.0 Allergy status to penicillin; Z88.1 Allergy status to other antibiotic agents; Z88.2 Allergy status to sulfonamides; Z88.5 Allergy status to narcotic agent; Z88.6 Allergy status to analgesic agent; Z88.8 Allergy status to other drugs, medicaments and biological substances; Z91.040 Latex allergy status

== ENCOUNTER → 2021-04-03 | Outpatient (CLI) | payer OTHER | LOC: M PAIN 14:00 | PROVIDERS: ATTEND Family Medicine | DX: Z53.9 Procedure and treatment not carried out, unspecified reason (principal) ==

== ENCOUNTER → 2021-06-12 | Outpatient (CLI) | payer OTHER ==
--- NOTE | 2021-06-14 00:28 | ECWPNPC ---
PATIENT NAME: NICOLE SALTER : 1965 GENDER: FEMALE VISIT DATE: 06/12/2021 DISCHARGE DATE: 06/12/21 1446 VISIT LOCKED DATE TIME: PHYSICIAN: DARIANA HILLIARD RESOURCE: DARIANA HILLIARD REASON FOR APPOINTMENT 1. 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 CHRONIC PAIN FOLLOW-UP. SHE RATES HER PAIN CURRENTLY AT A 9 OUT OF 10 DESCRIBES IT CONTINUOUS, SHARP, AND SORE. SHE FEELS HER MEDICATIONS ARE HELPFUL AND DENIES MED SIDE EFFECTS AT THIS TIME. DOI 12/13/2006. -. FALL RISK SCREENING: SCREENING : NO FALLS REPORTED IN THE LAST YEAR. PAIN SCREENING: PATIENT HAS A COMPLAINT OF ACUTE OR CHRONIC PAIN :YES LOCATION OF PAIN:KNEES LEFT KNEE INTENSITY OF PAIN (SCALE OF 1 TO 10):9 WHAT DOES YOUR PAIN FEEL LIKE:CONTINOUS, SHARP, SORE DURATION:CONTINOUS, CONSTANT, STEADY, AWAKENS FROM SLEEP PAIN IS INCREASED BY:ACTIVITIES, PROLONGED STANDING PAIN IS DECREASED BY:USE OF PAIN MEDICATIONS NURSING NOTE: -. PAIN CENTER INTAKE QUESTIONS: DO YOU HAVE A HISTORY OF MRSA? :NO DO YOU TAKE A BLOOD THINNERS? :NO DO YOU HAVE ANY BLEEDING DISORDERS? :NO ANY NEW NUMBNESS OR WEAKNESS IN YOUR LEGS OR ARMS? :YES BILAT LEGS ANY PACEMAKER,DEFIBRILLATOR, OR DORSAL COLUMN STIMULATOR? :NO DO YOU HAVE ANY RASHES OR OPEN SORES? :NO ARE YOU ALLERGIC TO IV DYE? :YES ARE YOU DIABETIC? :NO ANY NEW PROBLEMS WITH YOUR MEDICATIONS? :NO HAVE YOU RECEIVED A VACCINE IN THE PAST 30 DAYS? :NO DO YOU PLAN TO RECEIVE A VACCINE IN THE NEXT 21 DAYS? :NO DO YOU NEED ANY PRESCRIPTION? :NO DO YOU TAKE ANY IMMUNOSUPPRESSIVE MEDICATIONS? :NO IS THERE A CHANCE YOU COULD BE ? :NO ARE YOU BREAST FEEDING? :NO CURRENT MEDICATIONS TAKING COLLAGEN ULTRA - CAPSULE DIRECTED ORALLY TAKING LASIX 40 MG TABLET 1 TABLET ORALLY ONCE A DAY TAKING CARDIZEM 120 MG TABLET ORALLY ONCE DAILY TAKING VITAMIN E 400 UNIT TABLET 2 TABLETS ORALLY ONCE A DAY TAKING VITAMIN D (CHOLECALCIFEROL) 1000 UNIT TABLET 1 TABLET ORALLY ONCE A DAY TAKING BIOTIN 300 MCG TABLET 1 TABLET ORALLY ONCE A DAY TAKING PRILOSEC OTC 20 MG TABLET DELAYED RELEASE 1 TABLET 30 MINUTES BEFORE MORNING MEAL ORALLY ONCE A DAY TAKING LYRICA 200 MG CAPSULE 1 CAPSULE ORALLY Q 8 HRS MDD=3 TAKING MORPHINE SULFATE ER 30 MG TABLET EXTENDED RELEASE 1 TABLET ORALLY EVERY 12 HRS MDD2 TAKING MORPHINE SULFATE 30 MG TABLET 1-2 TABLET NEEDED ORALLY DAILY MDD2 NOT-TAKING SELENIUM 200 MCG TABLET 1 TABLET ORALLY ONCE A DAY NOT-TAKING GABAPENTIN 300 MG CAPSULE 1 CAPSULE ORALLY THREE TIMES DAILY NOT-TAKING OXYCODONE HCL 5 MG TABLET 1 TABLET NEEDED ORALLY EVERY 12 HRS MDD2 NOT-TAKING CIPRO HC 0.2-1 % SUSPENSION 3 DROPS INTO AFFECTED EAR OTIC TWICE A DAY NOT-TAKING PROTONIX 40 MG TABLET DELAYED RELEASE 1 TABLET ORALLY ONCE A DAY NOT-TAKING ACETAMINOPHEN 500 MG TABLET 1 TABLET NEEDED ORALLY EVERY 8 HRS NOT-TAKING DULOXETINE HCL 20 MG CAPSULE DELAYED RELEASE PARTICLES 1 CAPSULE ORALLY DAILY NOT-TAKING OXYMORPHONE HCL ER 30 MG TABLET EXTENDED RELEASE 12 HOUR 1 TABLET ORALLY EVERY 12 HRS CHRONIC PAIN MDD=2 NOT-TAKING OXYMORPHONE HCL ER 20 MG TABLET EXTENDED RELEASE 12 HOUR 1 TABLET 1 HOUR BEFORE OR 2 HOURS AFTER EATING ORALLY EVERY 12 HRS MDD=2 NOT-TAKING XANAX 0.5 MG TABLET 1 TABLET ORALLY TWICE A DAY NEEDED NOT-TAKING NORCO 10-325 MG TABLET 1 TABLET ORALLY Q 6-8 HRS PRN PAIN MDD=3 MEDICATION LIST REVIEWED AND RECONCILED WITH THE PATIENT PAST MEDICAL HISTORY HTN GERD HIGH CHOLESTEROL ANXIETY BRONCHIATUS DEPRESSION RSD SINUSITIS PHARYNGITIS BRONCHITIS RIGHT KNEE PAIN LEFT KNEE PAIN RECENT CT OR MRI IN ER ALLERGIES AMITRIPTYLINE HCL: RASH AND SWELLING - ALLERGY BACITRACIN: RASH - ALLERGY INDOCIN: SWELLING AND RASH - ALLERGY VOLTAREN: RASH - ALLERGY LIDOCAINE: RASH - ALLERGY MORPHINE SULFATE: SWELLING AND ITCHING - ALLERGY NAPROXEN: SWELLING - ALLERGY NEOMYCIN SULFATE: RASH - ALLERGY POLYMYXIN B-TRIMETHOPRIM: RASH - ALLERGY OMEPRAZOLE: ITCHING - ALLERGY DICLOFENAC: SWELLING AND RASH - ALLERGY CLARITHROMYCIN: RASH - ALLERGY DEXILANT: FACIAL SWELLING - ALLERGY CELEBREX: RASH AND CHEST PAIN - ALLERGY LATEX (FOR ALLERGY USE ONLY): RASH AND BLISTERS - ALLERGY DULOXETINE HCL: CHEST PAIN - ALLERGY AMINOGLYCOSIDES: RASH - ALLERGY PENICILLIN (FOR ALLERGIES USE ONLY): ANAPHYLAXIS - ALLERGY SULFA (FOR ALLERGY USE ONLY): CHEST PAIN AND RASH - ALLERGY NSAIDS AND IBUPROFEN: SWELLING, DISTRESS, AND DIARRHEA - ALLERGY SOCIAL HISTORY GENERAL: TOBACCO USE ARE YOU A: NONSMOKER. LATEX QUESTIONNAIRE LATEX ALLERGY : HAVE YOU EVER DEVELOPED ANY TYPE OF REACTION AFTER HANDLING LATEX PRODUCTS SUCH RUBBER GLOVES, CONDOMS, DIAPHRAGMS, BALLOONS, SOCKS, OR UNDERWEAR?YES - PLEASE INDICATE :RUBBER GLOVES PT GETS RASH AND BLISTERS WHEN EXPOSED TO LATEX LATEX ALLERGY : HAVE YOU EVER DEVELOPED ANY TYPE OF REACTION DURING OR AFTER DENTAL APPOINTMENT, VAGINAL/RECTAL EXAMINATION, SURGICAL PROCEDURE, OR ANY OTHER EXPOSURE?NO LATEX RISK : HAVE YOU EVER HAD ANY DIFFICULTY BREATHING OR HIVES AFTER EATING OR HANDLING ANY FRUITS, OR VEGETABLES; SUCH KIWI, BANANAS, STONE FRUITS, OR CHESTNUTSYES - PLEASE INDICATE : CHESTNUTS LATEX RISK : DO YOU HAVE A PREVIOUS PERSONAL HISTORY OF MORE THAN NINE SURGERIES, SPINA BIFIDA, OR REPEATED CATHERIZATIONS? NO LATEX RISK : ARE YOU FREQUENTLY EXPOSED TO LATEX PRODUCTS IN YOUR OCCUPATION?NO DATE ASKED : 04/03/2021 ALCOHOL USE: NO. ALCOHOL SCREENING DID YOU HAVE A DRINK CONTAINING ALCOHOL IN THE PAST YEAR?NO POINTS0 INTERPRETATIONNEGATIVE RECREATIONAL DRUG USE DRUG USE?NO CAFFEINE CAFFEINE USE?YES HOW OFTEN AND HOW MUCH? 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 EXERCISE: DAILY LEG EXERCISES. PATIENT DESCRIBES PAIN :ACHING, BURNING, HAVE IT ALL THE TIME, STABBING, TENDER, SORE FROM 0-10, WHAT LEVEL IS YOUR PAIN TODAY?8 PRECIPITATING FACTORS WALKING,ACTIVITY, BENDING ALLEVIATING FACTORS HEAT IMPACT ON FUNCTION YES - PFS REFERRAL NEEDED?NO CLERGY REFERRAL NEEDED?NO PUBLIC HEALTH REFERRAL NEEDED?NO WAS THE PROVIDER NOTIFIED OF ANY PERTINENT INFO?NO N/A HAS THE PATIENT BEEN EDUCATED REGARDING HIS/HER PLAN OF CARE?YES HAS THE PATIENT BEEN EDUCATED REGARDING PAIN, THE RISK FOR PAIN, THE IMPORTANCE OF EFFECTIVE PAIN MANAGEMENT, AND THE PAIN ASSESSMENT PROCESS?YES ADVANCE DIRECTIVE ADVANCE DIRECTIVE DISCUSSED WITH PATIENT:YES PT DOES NOT HAVE HCP. INFORMATION PACKET GIVEN. ASSISTANCE DECLINED. REVIEWED WITH PT 02/07/19 0598 BVREVIEWED WITH PT 03/24/19 1519 BVREVIEWED WITH PATEINT 06/07/19 NLJREVIEWED WITH PATIENT 10/18/19 1301 NLJ. REVIEW OF SYSTEMS CONSTITUTIONAL: ANY RECENT FEVER NO . CHILLS NO . WEIGHT CHANGE OF UNKNOWN REASONS NO . GASTROENTEROLOGY: NEW UNEXPLAINABLE CHANGES IN BOWEL CONTROL NO . CONSTIPATION NO . GENITOURINARY: ANY NEW CHANGE IN BLADDER CONTROL? NO . NEUROLOGY: NEW ONSET DIZZINESS OR NEUROLOGICAL CHANGES NOT MENTIONED NO . NEW NUMBNESS OR PAIN PATTERNS NOT MENTIONED AND PERTINENT TO TODAY'S VISIT NO . CARDIOLOGY: NEW CHEST PRESSURE NO . PATIENT DENIES NO . RESPIRATORY: UNEXPLAINABLE COUGH NO . NEW SHORTNESS OF BREATH NO . VITAL SIGNS WT 188.2 LBS, WT-KG 85.37 KG, HT 66 IN, BMI 30.37 INDEX, BP 131/94 MM HG, HR 82 /MIN, RR 18 /MIN, TEMP 96.7 F, OXYGEN SAT % 99, SAFE IN ENV? (Y/N) YES, REVIEWED BY: [facility]. MIKE RN. EXAMINATION GENERAL EXAMINATION: GENERALNO ACUTE DISTRESS, WELL NOURISHED AND HYDRATED. PSYCHAPPROPRIATE MOOD AND AFFECT . LUNGS:CLEAR TO AUSCULTATION BILATERALLY, NO WHEEZES, RHONCHI, RALES. HEART:NO MURMURS, REGULAR RATE AND RHYTHM. 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 CHRONIC PAIN FOLLOW-UP. DISCUSSED THE FACT THAT WORKER'S COMP. 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 PATIENT WAS ENCOURAGED TO GET PROOF OF THIS FROM HER RN RENAL AND HAVE IT FAXED TO THIS OFFICE. PATIENT HAS EXPRESSED UNDERSTANDING OF AND WAS IN AGREEMENT WITH TREATMENT PLAN. GIVEN TIME TO ASK QUESTIONS AND EXPRESS CONCERNS. ISTOP REGISTRY REVIEWED AND DEMONSTRATES COMPLLIANCE. (REF # [id number] ) BRINGS IN MEDICATIONS WHICH IS APPROPRIATE FOR WHAT WAS DISPENSED. RECENT URINE TOXICOLOGY REVIEWED. NO UNAUTHORIZED MEDICATIONS. NO ILLICIT SUBSTANCES AND PRESCRIBED MEDICATIONS WERE PRESENT. CHRONIC PRESCRIPTION OPIATE USE LAB: URINE TEST GROUP PARUL LAWSON 06/12/2021 2:23:11 PM > LAST DOSE: LYRICA 06/12/21 1130, MORPHINE 06/12/21 0800 PROCEDURES PN WORKMANS' COMP OPINION IN YOUR OPINION, WAS THE INCIDENT THAT THE PATIENT DESCRIBED THE COMPETENT MEDICAL CAUSE OF THIS INJURY/ILLNESS? YES ARE THE PATIENT'S COMPLAINTS CONSISTENT WITH HIS/HER HISTORY OF THE INJURY/ILLNESS? YES IS THE PATIENT'S HISTORY OF THE INJURY/ILLNESS CONSISTENT WITH YOUR OBJECTIVE FINDING? YES WHAT IS THE PERCENTAGE OF TEMPORARY IMPAIRMENT? TOTAL = 100% IS THE PATIENT WORKING? NO DOCTOR ON SITE: JOE VALENTINE MD VISIT CODES 76886 OFFICE VISIT, EST PT., LEVEL 3. PROCEDURE CODES FA211 ESTABILISHED PATIENT [facility] CHARGE DISPOSITION & COMMUNICATION FOLLOW UP 3 MONTHS (REASON: CRPS) ELECTRONICALLY SIGNED BY MITZY BRONSON ON 06/13/2021 AT 07:35 AM EDT DISCLAIMER : THIS IS A VISIT SUMMARY EXTRACTED FROM THE [employer] CHART. IT IS NOT A COPY OF THE [employer] PROGRESS NOTE. RADHA
== END ==
LOC: M PAIN 13:45
PROVIDERS: ATTEND Family Medicine
DX: G90.529 Complex regional pain syndrome I of unspecified lower limb (principal); I10 Essential (primary) hypertension; K21.9 Gastro-esophageal reflux disease without esophagitis; E78.00 Pure hypercholesterolemia, unspecified; F41.9 Anxiety disorder, unspecified; F32.9 Major depressive disorder, single episode, unspecified; Z79.891 Long term (current) use of opiate analgesic; Z79.899 Other long term (current) drug therapy; Z88.6 Allergy status to analgesic agent; Z88.0 Allergy status to penicillin; Z88.2 Allergy status to sulfonamides; Z91.040 Latex allergy status; Z88.8 Allergy status to other drugs, medicaments and biological substances; Z88.5 Allergy status to narcotic agent; Z88.1 Allergy status to other antibiotic agents

== ENCOUNTER → 2021-10-17 | Outpatient (CLI) | payer OTHER | LOC: M PAIN 13:45 | PROVIDERS: ATTEND Anesthesiology | DX: M25.561 Pain in right knee (principal); M54.50 Low back pain, unspecified; I10 Essential (primary) hypertension; K21.9 Gastro-esophageal reflux disease without esophagitis; E78.00 Pure hypercholesterolemia, unspecified; M25.562 Pain in left knee; F41.9 Anxiety disorder, unspecified; F32.A Depression, unspecified; Z79.891 Long term (current) use of opiate analgesic; Z79.899 Other long term (current) drug therapy; Z88.0 Allergy status to penicillin; Z88.2 Allergy status to sulfonamides; Z88.1 Allergy status to other antibiotic agents; Z88.6 Allergy status to analgesic agent; Z88.8 Allergy status to other drugs, medicaments and biological substances; Z91.040 Latex allergy status ==

== ENCOUNTER → 2022-03-11 | Outpatient (CLI) | payer OTHER | LOC: M PAIN 11:45 | PROVIDERS: ATTEND Nurse Practitioner Family | DX: M25.561 Pain in right knee (principal); M54.50 Low back pain, unspecified; G89.29 Other chronic pain; K21.9 Gastro-esophageal reflux disease without esophagitis; Z86.59 Personal history of other mental and behavioral disorders; Z88.0 Allergy status to penicillin; Z88.1 Allergy status to other antibiotic agents; Z88.2 Allergy status to sulfonamides; Z88.5 Allergy status to narcotic agent; Z88.6 Allergy status to analgesic agent; Z88.8 Allergy status to other drugs, medicaments and biological substances; Z91.040 Latex allergy status; Z79.891 Long term (current) use of opiate analgesic; Z79.899 Other long term (current) drug therapy ==

== ENCOUNTER → 2022-07-28 | Outpatient (CLI) | payer OTHER | LOC: M PAIN 10:45 | PROVIDERS: ATTEND Anesthesiology | DX: M48.061 Spinal stenosis, lumbar region without neurogenic claudication (principal); M54.16 Radiculopathy, lumbar region; I10 Essential (primary) hypertension; K21.9 Gastro-esophageal reflux disease without esophagitis; E78.00 Pure hypercholesterolemia, unspecified; F41.9 Anxiety disorder, unspecified; F32.A Depression, unspecified; M25.561 Pain in right knee; M25.562 Pain in left knee; J47.9 Bronchiectasis, uncomplicated; Z79.891 Long term (current) use of opiate analgesic; Z79.899 Other long term (current) drug therapy; Z88.0 Allergy status to penicillin; Z88.1 Allergy status to other antibiotic agents; Z88.2 Allergy status to sulfonamides; Z88.5 Allergy status to narcotic agent; Z88.8 Allergy status to other drugs, medicaments and biological substances; Z88.6 Allergy status to analgesic agent; Z91.040 Latex allergy status ==

== ENCOUNTER → 2022-10-19 | Outpatient (CLI) | payer OTHER | LOC: M PAIN 13:00 | PROVIDERS: ATTEND Nurse Practitioner Family | DX: M48.061 Spinal stenosis, lumbar region without neurogenic claudication (principal); G89.29 Other chronic pain; I10 Essential (primary) hypertension; Z86.59 Personal history of other mental and behavioral disorders; Z88.0 Allergy status to penicillin; Z88.1 Allergy status to other antibiotic agents; Z88.2 Allergy status to sulfonamides; Z88.4 Allergy status to anesthetic agent; Z88.5 Allergy status to narcotic agent; Z88.6 Allergy status to analgesic agent; Z88.8 Allergy status to other drugs, medicaments and biological substances; Z91.040 Latex allergy status; Z79.891 Long term (current) use of opiate analgesic; Z79.899 Other long term (current) drug therapy ==

== ENCOUNTER → 2022-11-26 | Outpatient (CLI) | payer OTHER | LOC: M PAIN 14:00 | PROVIDERS: ATTEND Nurse Practitioner Family | DX: M48.061 Spinal stenosis, lumbar region without neurogenic claudication (principal); G89.29 Other chronic pain; I10 Essential (primary) hypertension; Z86.59 Personal history of other mental and behavioral disorders; Z88.0 Allergy status to penicillin; Z88.1 Allergy status to other antibiotic agents; Z88.2 Allergy status to sulfonamides; Z88.4 Allergy status to anesthetic agent; Z88.5 Allergy status to narcotic agent; Z88.6 Allergy status to analgesic agent; Z88.8 Allergy status to other drugs, medicaments and biological substances; Z91.040 Latex allergy status; Z79.891 Long term (current) use of opiate analgesic; Z79.899 Other long term (current) drug therapy ==

== ENCOUNTER → 2023-02-26 | Outpatient (CLI) | payer OTHER | LOC: M PAIN 14:15 | PROVIDERS: ATTEND Nurse Practitioner Family | DX: M54.50 Low back pain, unspecified (principal); G89.29 Other chronic pain; I10 Essential (primary) hypertension; K21.9 Gastro-esophageal reflux disease without esophagitis; E78.00 Pure hypercholesterolemia, unspecified; F41.9 Anxiety disorder, unspecified; F32.A Depression, unspecified; M25.561 Pain in right knee; M25.562 Pain in left knee; Z79.891 Long term (current) use of opiate analgesic; Z79.899 Other long term (current) drug therapy; Z88.1 Allergy status to other antibiotic agents; Z88.0 Allergy status to penicillin; Z88.2 Allergy status to sulfonamides; Z88.5 Allergy status to narcotic agent; Z88.6 Allergy status to analgesic agent; Z88.8 Allergy status to other drugs, medicaments and biological substances; Z91.040 Latex allergy status ==

== ENCOUNTER → 2023-06-04 | Outpatient (CLI) | payer OTHER | LOC: M PAIN 14:00 | PROVIDERS: ATTEND Nurse Practitioner Family | DX: M51.16 Intervertebral disc disorders with radiculopathy, lumbar region (principal); G89.29 Other chronic pain; I10 Essential (primary) hypertension; K21.9 Gastro-esophageal reflux disease without esophagitis; Z86.59 Personal history of other mental and behavioral disorders; Z88.0 Allergy status to penicillin; Z88.1 Allergy status to other antibiotic agents; Z88.2 Allergy status to sulfonamides; Z88.5 Allergy status to narcotic agent; Z88.6 Allergy status to analgesic agent; Z88.8 Allergy status to other drugs, medicaments and biological substances; Z91.040 Latex allergy status; Z79.891 Long term (current) use of opiate analgesic; Z79.899 Other long term (current) drug therapy ==

== ENCOUNTER → 2023-08-30 | Outpatient (CLI) | payer OTHER | LOC: M PAIN 10:45 | PROVIDERS: ATTEND Nurse Practitioner Family | DX: M51.16 Intervertebral disc disorders with radiculopathy, lumbar region (principal); Z79.891 Long term (current) use of opiate analgesic; G89.29 Other chronic pain; I10 Essential (primary) hypertension; K21.9 Gastro-esophageal reflux disease without esophagitis; E78.00 Pure hypercholesterolemia, unspecified; F41.9 Anxiety disorder, unspecified; F32.A Depression, unspecified; M25.561 Pain in right knee; M25.562 Pain in left knee; Z79.899 Other long term (current) drug therapy; Z88.0 Allergy status to penicillin; Z88.2 Allergy status to sulfonamides; Z88.6 Allergy status to analgesic agent; Z88.1 Allergy status to other antibiotic agents; Z88.8 Allergy status to other drugs, medicaments and biological substances ==

== ENCOUNTER → 2023-10-08 | Outpatient (CLI) | payer OTHER | LOC: M PAIN 15:30 | PROVIDERS: ATTEND Nurse Practitioner Family | DX: M51.16 Intervertebral disc disorders with radiculopathy, lumbar region (principal); G89.29 Other chronic pain; I10 Essential (primary) hypertension; K21.9 Gastro-esophageal reflux disease without esophagitis; E78.00 Pure hypercholesterolemia, unspecified; F41.9 Anxiety disorder, unspecified; F32.A Depression, unspecified; M25.561 Pain in right knee; M25.562 Pain in left knee; Z79.891 Long term (current) use of opiate analgesic; Z79.899 Other long term (current) drug therapy; Z88.1 Allergy status to other antibiotic agents; Z88.6 Allergy status to analgesic agent; Z88.4 Allergy status to anesthetic agent; Z88.2 Allergy status to sulfonamides; Z88.8 Allergy status to other drugs, medicaments and biological substances; Z91.040 Latex allergy status ==

== ENCOUNTER → 2023-12-28 | Outpatient (CLI) | payer OTHER | LOC: M PAIN 10:00 | PROVIDERS: ATTEND Nurse Practitioner Family | DX: M51.16 Intervertebral disc disorders with radiculopathy, lumbar region (principal); G89.29 Other chronic pain; I10 Essential (primary) hypertension; K21.9 Gastro-esophageal reflux disease without esophagitis; E78.00 Pure hypercholesterolemia, unspecified; F41.9 Anxiety disorder, unspecified; F32.A Depression, unspecified; M25.561 Pain in right knee; M25.562 Pain in left knee; Z79.891 Long term (current) use of opiate analgesic; Z79.899 Other long term (current) drug therapy; Z88.1 Allergy status to other antibiotic agents; Z88.2 Allergy status to sulfonamides; Z88.5 Allergy status to narcotic agent; Z88.0 Allergy status to penicillin; Z88.4 Allergy status to anesthetic agent; Z91.040 Latex allergy status ==

== ENCOUNTER → 2024-03-07 | Outpatient (CLI) | payer OTHER | LOC: M PAIN 16:00 | PROVIDERS: ATTEND Nurse Practitioner Family | DX: M51.16 Intervertebral disc disorders with radiculopathy, lumbar region (principal); Z79.891 Long term (current) use of opiate analgesic; G89.29 Other chronic pain; I10 Essential (primary) hypertension; K21.9 Gastro-esophageal reflux disease without esophagitis; E78.00 Pure hypercholesterolemia, unspecified; F41.9 Anxiety disorder, unspecified; F32.A Depression, unspecified; M25.561 Pain in right knee; M25.562 Pain in left knee; Z79.899 Other long term (current) drug therapy; Z88.0 Allergy status to penicillin; Z88.1 Allergy status to other antibiotic agents; Z88.2 Allergy status to sulfonamides; Z88.8 Allergy status to other drugs, medicaments and biological substances; Z88.6 Allergy status to analgesic agent; Z91.040 Latex allergy status ==

== ENCOUNTER → 2024-04-28 | Outpatient (CLI) | payer OTHER | LOC: M PAIN 16:30 | PROVIDERS: ATTEND Nurse Practitioner Family | DX: M51.16 Intervertebral disc disorders with radiculopathy, lumbar region (principal); Z79.891 Long term (current) use of opiate analgesic; Z79.899 Other long term (current) drug therapy; Z88.0 Allergy status to penicillin; Z88.1 Allergy status to other antibiotic agents; Z88.2 Allergy status to sulfonamides; Z88.6 Allergy status to analgesic agent; Z88.8 Allergy status to other drugs, medicaments and biological substances ==

== ENCOUNTER → 2024-06-30 | Outpatient (CLI) | payer OTHER | LOC: M PAIN 16:30 | PROVIDERS: ATTEND Nurse Practitioner Family | DX: M51.16 Intervertebral disc disorders with radiculopathy, lumbar region (principal); G89.29 Other chronic pain; I10 Essential (primary) hypertension; K21.9 Gastro-esophageal reflux disease without esophagitis; E78.00 Pure hypercholesterolemia, unspecified; F41.9 Anxiety disorder, unspecified; J47.9 Bronchiectasis, uncomplicated; F32.A Depression, unspecified; M25.561 Pain in right knee; M25.562 Pain in left knee; Z79.891 Long term (current) use of opiate analgesic; Z79.899 Other long term (current) drug therapy; Z88.0 Allergy status to penicillin; Z88.1 Allergy status to other antibiotic agents; Z88.6 Allergy status to analgesic agent; Z88.8 Allergy status to other drugs, medicaments and biological substances; Z88.4 Allergy status to anesthetic agent; Z88.2 Allergy status to sulfonamides ==

== ENCOUNTER → 2024-08-29 | Outpatient (CLI) | payer OTHER | LOC: M PAIN 16:00 | PROVIDERS: ATTEND Nurse Practitioner Family | DX: M51.16 Intervertebral disc disorders with radiculopathy, lumbar region (principal); Z79.891 Long term (current) use of opiate analgesic; G89.29 Other chronic pain; I10 Essential (primary) hypertension; K21.9 Gastro-esophageal reflux disease without esophagitis; E78.00 Pure hypercholesterolemia, unspecified; F41.9 Anxiety disorder, unspecified; F32.A Depression, unspecified; M25.561 Pain in right knee; M25.562 Pain in left knee; Z79.899 Other long term (current) drug therapy; Z88.0 Allergy status to penicillin; Z88.1 Allergy status to other antibiotic agents; Z88.2 Allergy status to sulfonamides; Z88.6 Allergy status to analgesic agent; Z88.8 Allergy status to other drugs, medicaments and biological substances ==

== ENCOUNTER → 2024-11-03 | Outpatient (CLI) | payer OTHER | LOC: M PAIN 17:00 | PROVIDERS: ATTEND Nurse Practitioner Family | DX: M51.16 Intervertebral disc disorders with radiculopathy, lumbar region (principal); M25.561 Pain in right knee; G89.29 Other chronic pain; Z79.891 Long term (current) use of opiate analgesic; Z79.899 Other long term (current) drug therapy; Z88.0 Allergy status to penicillin; Z88.1 Allergy status to other antibiotic agents; Z88.2 Allergy status to sulfonamides; Z88.4 Allergy status to anesthetic agent; Z88.6 Allergy status to analgesic agent; Z88.8 Allergy status to other drugs, medicaments and biological substances; Z91.040 Latex allergy status ==

== ENCOUNTER → 2024-12-12 | Outpatient (CLI) | payer OTHER | LOC: M PAIN 17:00 | PROVIDERS: ATTEND Nurse Practitioner Family | DX: M51.16 Intervertebral disc disorders with radiculopathy, lumbar region (principal); G89.29 Other chronic pain; I10 Essential (primary) hypertension; K21.9 Gastro-esophageal reflux disease without esophagitis; E78.00 Pure hypercholesterolemia, unspecified; Z79.891 Long term (current) use of opiate analgesic; Z79.899 Other long term (current) drug therapy; Z88.0 Allergy status to penicillin; Z88.1 Allergy status to other antibiotic agents; Z88.2 Allergy status to sulfonamides; Z88.6 Allergy status to analgesic agent; Z91.040 Latex allergy status ==